=== PATIENT | female | born 1940 | race American Indian/Alaskan Native ===

== ENCOUNTER 2016-08-07 09:19 | Outpatient (CLI) | payer MEDICARE, OTHER ==
[2016-08-07 10:00] LABS: Blood Urea Nitrogen 9 mg/dL (7-17)
[2016-08-07] MEDS ORDERED: NACL ONE (10:45)
--- NOTE | 2016-08-07 12:06 | Cat Scan Report ---
CT abdomen and pelvis with and without contrast: History: Hematuria. Sections are obtained transversely from lower chest to the ischium with coronal and sagittal 2-D reformatted images. There is a right pleural effusion and a focal area of peripheral atelectasis or consolidation in the right middle lobe or anterior segment of the lower lobe. This is not a new finding based on prior study in May 2016. Coronary vascular calcification is identified at the cardiac apex. There is a moderate level of mural calcification throughout the abdominal aorta and iliofemoral vessels. There is a small parenchymal calcification identified in the mid left kidney. There is a small umbilical hernia. Scattered calcification identified in the uterus. Total collapse of the L5-S1 disc. Following contrast administration a peripheral cortical cyst is identified in the upper posterior left kidney and there is a 2 cm filling defect involving the base of the bladder on the right side. Impressions: 1. Suspect urinary bladder mass. 2. Nonobstructing small left parenchymal calcification and cortical cyst. 3. Chronic right pulmonary pathology.
== END 2016-08-07 09:20 | disposition home or self-care (01) ==
LOC: CT 09:19
PROVIDERS: ATTEND Urology
DX: N28.1 Cyst of kidney, acquired (principal); M48.57XA Collapsed vertebra, not elsewhere classified, lumbosacral region, initial encounter for fracture; J90 Pleural effusion, not elsewhere classified; I70.0 Atherosclerosis of aorta; I25.10 Atherosclerotic heart disease of native coronary artery without angina pectoris; K42.9 Umbilical hernia without obstruction or gangrene; N85.8 Other specified noninflammatory disorders of uterus; N28.89 Other specified disorders of kidney and ureter
CPT/HCPCS: 36415; 74178; 82565; 84520; Q9967

== ENCOUNTER 2016-10-18 08:02 | Outpatient (CLI) | payer MEDICARE, OTHER ==
--- NOTE | 2016-10-18 13:29 | PET Report ---
PET/CT:10/18/16 08:02:00 CLINICAL: Ovarian cancer restaging. RADIOPHARMACEUTICAL: 15.48mCi F18-FDG. COMPARISON: 05/10/16 PET/CT TECHNIQUE- Following intravenous injection of F-18 FDG and an approximately 60 minute uptake period, CT and PET images from the mid skull to the upper thighs were acquired with the patient in the fasted state. No contrast was administered. The CT protocol used for this PET CT study is designed for attenuation correction and anatomic localization of PET abnormalities. This cemetery manager CT is not desired to produce and cannot replace, [id number] diagnostic CT scans with specific imaging protocols for different body parts and indications. Plasma glucose at the time of this test: 133g/dl. The standardized uptake values (SUV) are normalized to patient body weight and indicate the highest activity concentration (SUV max) in a given disease site. FINDINGS: Brain--Physiologic FDG uptake in the visualized regions of the brain. Neck--Physiologic FDG uptake . Chest--Physiologic FDG uptake in mediastinal blood pool and myocardium. Lungs--No abnormal uptake. No pulmonary nodule or mass. The right middle lobe has reexpanded. Pleura/pericardium--No abnormal uptake. A small right pleural effusion has decreased in size since the last exam. Thoracic nodes--No abnormal uptake. Bilateral hilar and mediastinal lymph nodes have FDG uptake equal to background. FDG avid cardiophrenic lymph nodes have resolved. Hepatobiliary--No abnormal uptake. Liver background SUV mean, as a reference for comparing FDG studies, is 2.9 compared to 4.7 on the last exam. No liver mass. Spleen--No abnormal uptake. Pancreas--No abnormal uptake. Adrenal Glands--No abnormal uptake. Kidneys/Ureters/Bladder--No abnormal uptake. Abdominopelvic Nodes--No abnormal uptake. FDG avid extraperitoneal epigastric lymph nodes have resolved. Bowel/Peritoneum/Mesentery--sigmoid diverticulosis and stable wall thickening. However, FDG uptake is decreased with an SUV of 4.4. Pelvic organs--No abnormal uptake. Bones/Soft Tissues--No abnormal uptake. Other findings: Status post hysterectomy. IMPRESSION- 1.Resolution of FDG avid lymph nodes of the chest and abdomen. 2. No residual suspicious FDG uptake. 3. Resolution of right middle lobe atelectasis. 4. A persistent but smaller right pleural effusion. 5. Sigmoid diverticulosis and probably benign FDG uptake in the sigmoid colon.
== END 2016-10-18 08:03 | disposition home or self-care (01) ==
LOC: PET 08:02
PROVIDERS: ATTEND Internal Medicine Hematology & Oncology
DX: C56.9 Malignant neoplasm of unspecified ovary (principal); J90 Pleural effusion, not elsewhere classified; K57.30 Diverticulosis of large intestine without perforation or abscess without bleeding; Z90.710 Acquired absence of both cervix and uterus; Z79.899 Other long term (current) drug therapy
CPT/HCPCS: 78815; 82962; A9552

== ENCOUNTER 2017-03-05 09:11 | Outpatient (CLI) | payer MEDICARE, OTHER ==
[2017-03-05 10:06] LABS: Blood Urea Nitrogen 13 mg/dL (7-17)
--- NOTE | 2017-03-05 11:16 | Magnetic Resonance Report ---
MRI of the brain with and without contrast. History: Weakness, tremors. Procedure: Routine brain protocol with and without contrast. Findings: There are ill-defined areas of hyperintense T2 signal in the miguel bilaterally. Otherwise, the posterior fossa is normal. The ventricles are normal in size and contour. There are extensive periventricular T2 and flair hyperintensities bilaterally. There are no masses or extra-axial collections. The pituitary gland is normal. After contrast menstruation, there are no abnormal areas of parenchymal enhancement. The visualized extracranial structures are unremarkable. Impression: No acute findings. No evidence of metastatic disease. Chronic ischemic changes are seen in the brainstem and in the periventricular white matter.
== END 2017-03-05 09:12 | disposition home or self-care (01) ==
LOC: MRI 09:11
PROVIDERS: ATTEND Internal Medicine Hematology & Oncology
DX: C56.2 Malignant neoplasm of left ovary (principal); R25.1 Tremor, unspecified; R53.1 Weakness; J18.9 Pneumonia, unspecified organism; Z87.891 Personal history of nicotine dependence
CPT/HCPCS: 36415; 70553; 82565; 84520; A9577

== ENCOUNTER 2017-03-07 11:02 | Outpatient (CLI) | payer MEDICARE, OTHER ==
--- NOTE | 2017-03-08 13:11 | PET Report ---
PET/CT:03/07/17 11:02:00 CLINICAL: Ovarian cancer restaging. RADIOPHARMACEUTICAL: 14.4mCi F18-FDG. COMPARISON: 10/18/16 PET/CT TECHNIQUE- Following intravenous injection of F-18 FDG and an approximately 60 minute uptake period, CT and PET images from the mid skull to the upper thighs were acquired with the patient in the fasted state. No contrast was administered. The CT protocol used for this PET CT study is designed for attenuation correction and anatomic localization of PET abnormalities. This senior wind turbine technician CT is not desired to produce and cannot replace, khyli-zj-wfu-art diagnostic CT scans with specific imaging protocols for different body parts and indications. Plasma glucose at the time of this test: 107g/dl. The standardized uptake values (SUV) are normalized to patient body weight and indicate the highest activity concentration (SUV max) in a given disease site. FINDINGS: Brain--Physiologic FDG uptake in the visualized regions of the brain. Neck--Physiologic FDG uptake . Chest--Physiologic FDG uptake in mediastinal blood pool and myocardium. Lungs--No abnormal uptake. No pulmonary nodule or mass. Pleura/pericardium--No abnormal uptake. The small right pleural effusion has resolved. Thoracic nodes--No abnormal uptake. Hepatobiliary--No abnormal uptake. Liver background SUV mean, as a reference for comparing FDG studies, is 3.4 compared to 2.9 on the last exam. No liver mass. Spleen--No abnormal uptake. Pancreas--No abnormal uptake. Adrenal Glands--No abnormal uptake. Kidneys/Ureters/Bladder--No abnormal uptake. Abdominopelvic Nodes--No abnormal uptake. Bowel/Peritoneum/Mesentery--Diverticulosis of the sigmoid colon with mural wall thickening and FDG uptake in the lateral wall this should be 5.5 compared to 4.4 on the last exam. Pelvic organs--No abnormal uptake. Status post hysterectomy. Bones/Soft Tissues--No abnormal uptake. No suspicious bone lesion. IMPRESSION- 1. No evidence of metastatic disease. 2. Resolution of right pleural effusion. 3. Sigmoid diverticulosis and persistent FDG uptake in the wall of the sigmoid colon. This is presumably benign.
== END 2017-03-07 11:03 | disposition home or self-care (01) ==
LOC: PET 11:02
PROVIDERS: ATTEND Internal Medicine Hematology & Oncology
DX: C56.9 Malignant neoplasm of unspecified ovary (principal); K57.30 Diverticulosis of large intestine without perforation or abscess without bleeding; J90 Pleural effusion, not elsewhere classified; J18.9 Pneumonia, unspecified organism; J45.909 Unspecified asthma, uncomplicated; Z87.891 Personal history of nicotine dependence
CPT/HCPCS: 78815; 82962; A9552

== ENCOUNTER 2017-09-18 08:59 | Outpatient (CLI) | payer MEDICARE, OTHER ==
[2017-09-18 10:20] LABS: Blood Urea Nitrogen 10 mg/dL (7-17)
--- NOTE | 2017-09-18 15:00 | Nuclear Medicine Report ---
BONE SCAN: History: Malignant neoplasm of ovary. After injection of isotope, gamma camera imaging of the bony system was done. There is a normal uptake of isotope throughout the bony structures without areas of significantly increased or decreased uptake. Normal uptake in the urinary system is seen. IMPRESSION: Normal bone scan.
--- NOTE | 2017-09-18 16:09 | Cat Scan Report ---
FINAL REPORT EXAM: CT ABDOMEN PELVIS W CON HISTORY: MALIGNANT NEOPLASM OF OVARY TECHNIQUE: CT examination of the ABDOMEN after IV contrast CT examination of the PELVIS after IV contrast PRIORS: None. FINDINGS: Normal-appearing liver, gallbladder, adrenals, pancreas, and spleen. Intact normal caliber abdominal aorta with moderate calcified and noncalcified atherosclerotic plaque. Normal caliber IVC. A nonspecific, smoothly marginated, low density, simple appearing left renal lesion is statistically most likely a cyst. Otherwise normal-appearing kidneys and visible ureteral segments. No hydronephrosis. Intact anterior abdominal wall without hernia. No retroperitoneal adenopathy. No evidence of mesenteric mass. Normal-appearing stomach and duodenum. No small bowel distention in the abdomen and pelvis. No pelvic free fluid. Normal-appearing urinary bladder. Uterus and ovaries not visible. These may be surgically resected. No visible pelvic adenopathy. No gross ascites, free air, or colonic distention. Normal-appearing cecum, terminal ileum, and what appears to be a short appendix. Prominent gas and stool in rectum with slight rectal distention. Moderate sigmoid diverticulosis without CT evidence of acute inflammation. Slight diverticulosis descending colon. IMPRESSION: No CT evidence of mass or adenopathy Prominent stool and gas in rectum with slight rectal distention Slight descending and moderate sigmoid diverticulosis without evidence of acute inflammation
--- NOTE | 2017-09-18 16:16 | Cat Scan Report ---
FINAL REPORT EXAM: CT CHEST W CON HISTORY: MALIGNANT NEOPLASM OF OVARY TECHNIQUE: CT examination of the chest after IV contrast PRIORS: AP CT 09/18/2017 FINDINGS: Normal cardiac size without pericardial effusion. Intact normal caliber thoracic aorta with moderate calcified and noncalcified atherosclerotic plaque. Normal-appearing esophagus. No evidence of hilar mass or mediastinal adenopathy. The visible pulmonary arteries are diffusely patent. Degenerative change in the regional skeleton. No acute fracture or focal osseous lesion. No pneumothorax, pleural effusion, or focal pulmonary consolidation. Scattered pulmonary emphysema. Series 2, image 67, nonspecific 4 mm subpleural pulmonary are nodule in the right upper lobe anterolateral. It has a slightly linear configuration and may be scarring. IMPRESSION: 4 mm pulmonary nodule in right upper lobe may be scarring. Given history of ovarian malignancy, recommend followup chest CT in 3 months to ensure stability Scattered pulmonary emphysema
== END 2017-09-18 09:00 | disposition home or self-care (01) ==
LOC: NM 08:59
PROVIDERS: ATTEND Internal Medicine Hematology & Oncology
DX: C56.9 Malignant neoplasm of unspecified ovary (principal); J43.8 Other emphysema; K57.30 Diverticulosis of large intestine without perforation or abscess without bleeding; M47.894 Other spondylosis, thoracic region; I70.0 Atherosclerosis of aorta; R91.1 Solitary pulmonary nodule
CPT/HCPCS: 36415; 71260; 74177; 78306; 82565; 84520; A9503; Q9967

== ENCOUNTER 2018-01-03 10:49 | Outpatient (CLI) | payer MEDICARE ==
[2018-01-03 11:49] LABS: Blood Urea Nitrogen 11 mg/dL (7-17)
--- NOTE | 2018-01-03 14:56 | Cat Scan Report ---
FINAL REPORT EXAM: CT CHEST W CON HISTORY: OVARIAN CANCER COMPARISON: CT of the chest performed on 09/18/2017 TECHNIQUE: Multiple contiguous axial images were obtained from the thoracic inlet to the upper abdomen after administration of IV contrast. Reformatted sagittal and coronal images were available for review. FINDINGS: Medical devices: None. Thyroid: Normal. Lymph nodes: No significant mediastinal, hilar, or axillary lymphadenopathy. Vasculature: Normal caliber of the thoracic aorta with atherosclerotic plaques and calcifications. Normal variant branching pattern of the aortic arch with a common origin between the left common carotid artery and right brachiocephalic artery. Patent pulmonary artery. No filling defect to suggest pulmonary embolism. Heart: Normal heart size. Other mediastinal structures: Normal. Lung parenchyma: Stable 4 millimeter subpleural nodule in the right upper lobe (series 2, image 36). Background of centrilobular emphysematous change, most prominent in the bilateral upper lobes. Airways: Patent. No bronchiectasis. Pleura: No pleural effusion or pneumothorax. Chest wall and spine: No suspicious osseous lesions. No acute fracture or dislocation. Upper Abdomen: Normal. IMPRESSION: Stable 4 millimeter subpleural nodule in the right upper lobe. Background of centrilobular emphysematous change.
--- NOTE | 2018-01-03 15:28 | Cat Scan Report ---
FINAL REPORT EXAM: CT ABDOMEN PELVIS W CON HISTORY: OVARIAN CANCER COMPARISON: CT of the abdomen and pelvis performed on 09/18/2017 TECHNIQUE: Multiple contiguous axial images were obtained from the lung bases to the pubic symphysis after administration of IV and oral contrast. Reformatted sagittal and coronal images were available for review. FINDINGS: Lung bases: Normal. Visualized heart and mediastinum: Normal. Liver: Normal. Spleen: Normal. Pancreas: Normal. Gallbladder and Biliary Tree: No calcified gallstones. No biliary ductal dilatation. Adrenal glands: Normal. Kidneys: Symmetric enhancement to both kidneys. No hydronephrosis. Bladder: Normal. Pelvic organs: The uterus has been removed. The bilateral ovaries are not visualized and may have also been removed. Bowel: No focal wall thickening. No evidence of obstruction. Oral contrast advances to the splenic flexure. Diverticulosis of the sigmoid colon without evidence of diverticulitis. Large amount of stool within the colon. Peritoneum: No significant mesenteric adenopathy. No free air or free fluid. Vasculature: Abdominal aorta is normal in caliber without evidence of aneurysm. Scattered atherosclerotic calcifications. Normal appearance of the portal venous system and the inferior vena cava. Bones and soft tissues: No suspicious osseous lesions.No acute fracture or dislocation. The soft tissues are normal. IMPRESSION: No evidence of mass or adenopathy. Diverticulosis of the sigmoid colon without evidence diverticulitis.
== END 2018-01-03 10:50 | disposition home or self-care (01) ==
LOC: CT 10:49
PROVIDERS: ATTEND Internal Medicine Hematology & Oncology
DX: K57.30 Diverticulosis of large intestine without perforation or abscess without bleeding (principal); C56.9 Malignant neoplasm of unspecified ovary; I70.0 Atherosclerosis of aorta; R91.1 Solitary pulmonary nodule
CPT/HCPCS: 36415; 71260; 74177; 82565; 84520; Q9967

== ENCOUNTER 2018-06-23 05:44 | Outpatient (CLI) | payer MEDICARE ==
[2018-06-23 06:41] LABS: Blood Urea Nitrogen 8 mg/dL (7-17)
--- NOTE | 2018-06-23 09:37 | Cat Scan Report ---
CT chest abdomen and pelvis with contrast: Ovarian cancer. Transverse images are obtained from the thoracic inlet to the pelvis following IV contrast administration. Coronal and sagittal 2-D reformatted images included. Comparison made to prior exam of January 03, 2018. There is dense calcium in the posterior third of the left common carotid artery. The thyroid gland appears unremarkable. The central airways are patent. There is no significant hilar or mediastinal adenopathy noted. Scattered mural aortic calcifications. Bilateral upper lobe emphysematous changes are present with scattered areas of bilateral mild pleural scarring. The described nodule on prior examination in the right upper lobe is not identified currently. No other evidence of pulmonary nodule or lung disease. Images of the abdomen demonstrate normal abdominal and retroperitoneal organs. The partially opacified bowel and mesentery appears generally unremarkable. There is no mesenteric or periaortic adenopathy noted. There is diffuse mural calcification of the abdominal aorta and iliac vessels however the aortic contour is generally unremarkable with patent lumen. Images of the pelvis show no obvious adenopathy. The uterus and ovaries are not visualized and presumably removed. The only structures demonstrate decrease mineralization but no destructive or blastic lesions. Compared with her prior examination there are no new findings. Impression: Stable findings with no evidence of metastatic disease.
== END 2018-06-23 05:45 | disposition home or self-care (01) ==
LOC: CT 05:44
PROVIDERS: ATTEND Internal Medicine Hematology & Oncology
DX: C56.9 Malignant neoplasm of unspecified ovary (principal); K62.5 Hemorrhage of anus and rectum; I70.0 Atherosclerosis of aorta; J43.9 Emphysema, unspecified; Z87.891 Personal history of nicotine dependence
CPT/HCPCS: 36415; 71260; 74177; 82565; 84520; Q9967

== ENCOUNTER 2018-08-01 10:33 | Outpatient (CLI) | payer MEDICARE ==
[2018-08-01 11:17] LABS: Alanine Aminotransferase 10 units/L (7-56); Albumin 3.8 g/dL (3.9-5); BUN/Creatinine Ratio 11; Blood Urea Nitrogen 8 mg/dL (7-17); Calcium 9.7 mg/dL (8.4-10.2); Hemolysis Index 5
== END 2018-08-01 10:34 | disposition home or self-care (01) ==
LOC: LAB 10:33
PROVIDERS: ATTEND Specialist
DX: G31.84 Mild cognitive impairment of uncertain or unknown etiology (principal); J45.909 Unspecified asthma, uncomplicated; Z87.891 Personal history of nicotine dependence
CPT/HCPCS: 36415; 80053; 84443

== ENCOUNTER 2018-12-13 14:32 | Inpatient (IN) | payer MEDICARE ==
--- NOTE | 2018-12-13 16:53 | Emergency Department Report ---
HPI - General Chief Complaint: GI Bleed Time Seen by Provider: 12/13/18 16:29 - HPI HPI: Room 17 The patient is 78-year-old female presented with a chief complaint rectal bleeding. Patient states her symptoms began 12/11/2018 when she awakened at approximately 04:00 thinking she had to urinate but passed blood per rectum. The patient describes blood is "deep red" in color. Patient states she had 4-5 episodes of rectal bleeding as well as feeling near syncopal and diaphoretic. Patient was given water to drink and improved. The following day the patient states she was asymptomatic but today at approximately 04:00 symptoms return. The patient states she's had 3 episodes of rectal bleeding today. Patient denies abdominal pain nausea or vomiting. When asked how she is feeling currently the patient replies "I feel fine." Location: Gastrointestinal system Duration: [See above] Quality: Painless Severity: [See above] Modifying factors: [see above] Context: [see above] Mode of transportation: [not driving] ED Past Medical Hx - Past Medical History Hx Diabetes: Yes Hx of Cancer: Yes (ovarian-remission) Hx Asthma: Yes - Surgical History Additional Surgical History: hysterectomy, broken tail bone - Family History Family history: no significant - Social History Smoking Status: Former Smoker (none 3 years) Substance Use Type: None - Medications Home Medications: Home Medications Medication Instructions Recorded Confirmed Last Taken Type Budesonide/Formoterol Fumarate 2 puff INHALATION BID 04/27/16 05/28/16 05/27/16 History [Symbicort 160-4.5 Mcg Inhaler] Metformin HCl [metFORMIN ER] 500 mg PO QPM 04/27/16 05/28/16 05/26/16 History LORazepam 0.5 mg PO PRN 05/28/16 05/28/16 Unknown History PARoxetine HCl [Paroxetine HCl] 10 mg PO DAILY 05/28/16 05/28/16 05/27/16 History ED Review of Systems ROS: Stated complaint: RECTAL BLEED Other details as noted in HPI Constitutional: diaphoresis Eyes: denies: eye pain ENT: denies: throat pain Respiratory: no symptoms reported Cardiovascular: denies: chest pain Endocrine: no symptoms reported Gastrointestinal: hematochezia. denies: abdominal pain, hematemesis Genitourinary: denies: dysuria Musculoskeletal: denies: back pain Neurological: denies: headache Physical Exam - Physical Exam Vital Signs: Vital Signs 12/13/18 15:13 Temperature 98.7 F Pulse Rate 113 H Respiratory 16 Rate Blood Pressure 114/65 O2 Sat by Pulse 96 Oximetry Physical Exam: GENERAL: The patient is well-developed well-nourished lying on stretcher appearing to be in acute distress. [] HEENT: Normocephalic. Atraumatic. Extraocular motions are intact. Patient has moist mucous membranes. NECK: Supple. Trachea midline CHEST/LUNGS: Clear to auscultation. There is no respiratory distress noted. HEART/CARDIOVASCULAR: Regular. There is no tachycardia. There is no gallop rub or murmur. ABDOMEN: Abdomen is soft, nontender. Patient has normal bowel sounds. There is no abdominal distention. SKIN: There is no rash. There is no edema. There is no diaphoresis. NEURO: The patient is awake, alert, and oriented. The patient is cooperative. The patient has no focal neurologic deficits. The patient has normal speech MUSCULOSKELETAL: There is no evidence of acute injury. RECTAL: Guaiac positive ED Course Vital Signs 12/13/18 15:13 Temperature 98.7 F Pulse Rate 113 H Respiratory 16 Rate Blood Pressure 114/65 O2 Sat by Pulse 96 Oximetry ED Medical Decision Making - Lab Data Result diagrams: 12/13/18 17:26 12/13/18 17:26 Laboratory Tests 12/13/18 12/13/18 12/13/18 17:20 17:26 17:26 WBC 7.4 RBC 3.53 L Hgb 9.7 L Hct 30.2 L MCV 86 MCH 27 L MCHC 32 RDW 14.6 Plt Count 190 Lymph % (Auto) 22.8 Rolette % (Auto) 9.1 H Eos % (Auto) 0.9 Baso % (Auto) 0.3 Lymph # 1.7 Rolette # 0.7 Eos # 0.1 Baso # 0.0 Seg Neutrophils % 66.9 Seg Neutrophils # 4.9 PT 14.3 INR 1.14 H APTT 25.8 Sodium Potassium Chloride Carbon Dioxide Anion Gap BUN Creatinine Estimated GFR BUN/Creatinine Ratio Glucose POC Glucose Calcium Total Bilirubin AST ALT Alkaline Phosphatase Total Protein Albumin Albumin/Globulin Ratio Lipase Blood Type O POSITIVE Antibody Screen Negative 12/13/18 12/13/18 17:26 17:32 WBC RBC Hgb Hct MCV MCH MCHC RDW Plt Count Lymph % (Auto) Rolette % (Auto) Eos % (Auto) Baso % (Auto) Lymph # Rolette # Eos # Baso # Seg Neutrophils % Seg Neutrophils # PT INR APTT Sodium 142 Potassium 5.3 H Chloride 103.9 Carbon Dioxide 29 Anion Gap 14 BUN 17 Creatinine 0.8 Estimated GFR > 60 BUN/Creatinine Ratio 21 Glucose 90 POC Glucose 85 Calcium 9.6 Total Bilirubin 0.30 AST 18 ALT 14 Alkaline Phosphatase 73 Total Protein 6.6 Albumin 3.5 L Albumin/Globulin Ratio 1.1 Lipase 17 Blood Type Antibody Screen - Differential Diagnosis GI bleed, diverticulosis, internal hemorrhoids Critical care attestation.: If time is entered above; I have spent that time in minutes in the direct care of this critically ill patient, excluding procedure time. ED Disposition Clinical Impression: GI bleed Disposition: OP ADMIT IP TO THIS HOSP Is pt being admited?: Yes Does the pt Need Aspirin: No Condition: Fair Referrals: KAMILA DOMINGUEZ MD [Primary Care Provider] - 3-5 Days Forms: Accompanied Note Time of Disposition: 19:20 (hospitalist notified (Dr Chatman))
[2018-12-13 17:50] LABS: Basophils % (Auto) 0.3 % (0.0-1.8); Eosinophils # (Auto) 0.1 K/mm3 (0.0-0.4); Eosinophils % (Auto) 0.9 % (0.0-4.3); Hematocrit 30.2 % (30.3-42.9); Hemoglobin 9.7 gm/dl (10.1-14.3); Lymphocytes # (Auto) 1.7 K/mm3 (1.2-5.4); Lymphocytes % (Auto) 22.8 % (13.4-35.0); Mean Corpuscular HGB Conc 32 % (30-34); Mean Corpuscular Volume 86 fl (79-97); Monocytes # (Auto) 0.7 K/mm3 (0.0-0.8); Monocytes % (Auto) 9.1 % (0.0-7.3); Platelet Count 190 K/mm3 (140-440); Red Blood Count 3.53 M/mm3 (3.65-5.03); Red Cell Distribution Width 14.6 % (13.2-15.2)
[2018-12-13 17:59] LABS: Alanine Aminotransferase 14 units/L (7-56); Albumin 3.5 g/dL (3.9-5); BUN/Creatinine Ratio 21; Blood Urea Nitrogen 17 mg/dL (7-17); Calcium 9.6 mg/dL (8.4-10.2); Hemolysis Index 4
[2018-12-13 18:53] LABS: INR 1.14 (0.87-1.13); Partial Thromboplastin Time 25.8 Sec. (24.2-36.6)
--- NOTE | 2018-12-13 19:29 | History and Physical Report ---
History of Present Illness Chief complaint: I was bleeding, and i have COPD History of present illness: 78 YO Female with Dementia, DM, Asthma, Ovarian Cancer present to ED for evaluation. Pt states that she experienced multiple episodes of rectal bleeding over the past 1 day. Pt reports awakening at approximately 04:00 and feeling as though she had to urinate, but passed blood per rectum. The patient reports that the blood is "deep red" in color and "it a lot of blood". Patient states she had 4-5 episodes of rectal bleeding, and also experienced subsequrnt feeling of dizziness and felt as though she was going to pass out as she eric from a seated to a standing position. Pt also reports shortness of breath. Pt transported to [facility] via private vehicle. Pt seen and evaluated in ED and found to have GI Bleed. Pt admitted to [facility] and initiated on GI bleeding protocol. GI team consulted in ED. Pulmonary team consulted in ED. Past History Past Medical History: cancer, diabetes, other (Asthma) Past Surgical History: hysterectomy Social history: single. denies: smoking, alcohol abuse, prescription drug abuse Family history: hypertension Medications and Allergies Allergies Allergy/AdvReac Type Severity Reaction Status Date / Time No Known Allergies Allergy Verified 04/27/16 11:47 Home Medications Medication Instructions Recorded Confirmed Last Taken Type Budesonide/Formoterol Fumarate 2 puff INHALATION BID 04/27/16 05/28/16 05/27/16 History [Symbicort 160-4.5 Mcg Inhaler] Metformin HCl [metFORMIN ER] 500 mg PO QPM 04/27/16 05/28/16 05/26/16 History LORazepam 0.5 mg PO PRN 05/28/16 05/28/16 Unknown History PARoxetine HCl [Paroxetine HCl] 10 mg PO DAILY 05/28/16 05/28/16 05/27/16 History Review of Systems Constitutional: no weight loss, no weight gain, no fever, no chills Ears, nose, mouth and throat: no ear pain, no ear discharge, no tinnitis, no decreased hearing Cardiovascular: shortness of breath, no chest pain, no orthopnea, no palpitations Respiratory: cough, cough with sputum, shortness of breath, no hemoptysis Gastrointestinal: BRBPR, no nausea, no vomiting, no diarrhea Genitourinary Female: no pelvic pain, no flank pain, no menorrhagia Rectal: no pain, no incontinence, no bleeding Musculoskeletal: no neck stiffness, no neck pain, no shooting arm pain, no arm numbness/tingling Integumentary: no rash, no pruritis, no redness, no sores, no wounds Neurological: no paralysis, no weakness, no parathesias, no numbness, no tingling Psychiatric: no anxiety, no memory loss, no change in sleep habits, no sleep disturbances, no insomnia, no hypersomnia Endocrine: no cold intolerance, no heat intolerance, no polyphagia, no excessive thirst, no polydipsia Hematologic/Lymphatic: no easy bruising Allergic/Immunologic: no urticaria, no allergic rhinitis, no wheezing Exam - Constitutional Vitals: Temp Pulse Resp BP Pulse Ox 98.4 F 84 24 116/59 96 12/13/18 18:14 12/13/18 19:00 12/13/18 19:00 12/13/18 19:00 12/13/18 15:13 General appearance: Present: mild distress - EENT Eyes: Present: PERRL ENT: hearing intact, clear oral mucosa - Neck Neck: Present: supple, normal ROM - Respiratory Respiratory effort: normal Respiratory: bilateral: CTA - Cardiovascular Heart Sounds: Present: S1 & S2. Absent: rub, click - Extremities Extremities: pulses symmetrical, No edema Peripheral Pulses: within normal limits - Abdominal General gastrointestinal: Present: soft, non-tender, non-distended, normal bowel sounds Female genitourinary: Present: normal - Integumentary Integumentary: Present: clear, warm, dry - Musculoskeletal Musculoskeletal: gait normal, strength equal bilaterally - Psychiatric Psychiatric: appropriate mood/affect, intact judgment & insight - Neurologic Neurologic: CNII-XII intact, moves all extremities Results - Labs CBC & Chem 7: 12/13/18 17:26 12/13/18 17:26 Labs: Abnormal lab results 12/13/18 12/13/18 12/13/18 Range/Units 17:26 17:26 17:26 RBC 3.53 L (3.65-5.03) M/mm3 Hgb 9.7 L (10.1-14.3) gm/dl Hct 30.2 L (30.3-42.9) % MCH 27 L (28-32) pg [place] % (Auto) 9.1 H (0.0-7.3) % INR 1.14 H (0.87-1.13) Potassium 5.3 H (3.6-5.0) mmol/L Albumin 3.5 L (3.9-5) g/dL Assessment and Plan - Patient Problems (1) GI bleed Current Visit: Yes Status: Acute Plan to address problem: Admit to IMCU, GI consulted in ED, IV ppi therapy, serial cbc, HGb stable at 9.7 at time of admission[address] CT abdomen/pelvis. (2) COPD (chronic obstructive pulmonary disease) Current Visit: Yes Status: Acute Qualifiers: COPD type: chronic bronchitis Plan to address problem: supplemental oxygen, CT chest, pulmonary consulted, pulse oximetry, chest x ray, NIPPV as clinically indicated. (3) Diabetes Current Visit: Yes Status: Acute Qualifiers: Chronic kidney disease stage: on chronic dialysis Plan to address problem: AD diet, insulin, accu check, hypoglycemia protocol (4) DVT prophylaxis Current Visit: Yes Status: Acute Plan to address problem: SCD to BLE while in bed, hold anticoagulation to GI bleed
[2018-12-13] MEDS ORDERED: SODIUM CHLORIDE FLUSH SYRINGE 10 ML IV PRN (19:30)
[2018-12-13] MEDS ORDERED: PROVENTIL IH PRN (19:30)
[2018-12-13] MEDS ORDERED: ATIVAN PO PRN (20:00)
[2018-12-13] MEDS ORDERED: D50W (25GM) Syringe IV PRN (20:11)
[2018-12-13] MEDS ORDERED: PULMICORT IH ONE (21:23)
[2018-12-13] MEDS ORDERED: BROVANA NEBU IH ONE (21:23)
[2018-12-13] MEDS: BROVANA NEBU IH SCH (21:24)
[2018-12-13] MEDS: PULMICORT IH SCH (21:24)
[2018-12-13] MEDS ORDERED: NON-FORMULARY (Budesonide/Formoterol Fumarate [Symbicort 160-4.5 Mcg Inhaler] 2 PUFF) INHALATION SCH (22:00)
--- NOTE | 2018-12-13 22:44 | Cat Scan Report ---
PROCEDURE: CT CHEST W CON TECHNIQUE: Computerized axial tomography of the chest was performed during the IV injection of iodin ated nonionic contrast. HISTORY: shortness of breath COMPARISONS: 06/23/2018. . FINDINGS: Heart and pericardium: Coronary calcifications noted. Thoracic aorta: Normal. Pulmonary vasculature: No evidence for acute pulmonary embolus. Lymph nodes: No enlarged thoracic lymph nodes. Lungs: Moderate to severe emphysematous changes seen in the upper to midlung zones. No focal consolid ation or effusion visualized. A 3 mm pulmonary nodule seen along the right major fissure. Pleural space: No effusion, thickening, or pneumothorax. Musculoskeletal structures: No significant abnormality. Upper abdominal structures: No significant abnormality. IMPRESSION: No evidence for acute pulmonary embolus. Moderate to severe emphysematous changes seen in the upper to midlung zones. No focal consolidation o r effusion visualized. A 3 mm pulmonary nodule seen along the right major fissure. This document is electronically signed by Campos Lieberman MD., December 13 2018 10:41:48 PM ET
[2018-12-13] MEDS ORDERED: DULCOLAX PO ONE (23:05)
[2018-12-13] MEDS: PROTONIX IV SCH (23:12)
[2018-12-13] MEDS: SODIUM CHLORIDE FLUSH SYRINGE 10 ML IV SCH (23:12)
--- NOTE | 2018-12-13 23:18 | Cat Scan Report ---
PROCEDURE: CT ABDOMEN PELVIS W CON TECHNIQUE: Computerized axial tomography of the abdomen and pelvis was performed after the IV inject ion of iodinated nonionic contrast. HISTORY: bleeding COMPARISONS: Prior CT scan of the abdomen and pelvis 06/23/2019 . FINDINGS: Lower Lung [place]: Emphysematous changes again visualized in the lung bases. Upper Abdomen: The liver, the gallbladder, the adrenal glands, the pancreas and the spleen are unrem arkable. Kidneys, Ureters and Urinary bladder: No abnormalities are seen. Retroperitoneum: Atherosclerotic changes are seen in the abdominal aorta and iliac arteries. No aneu rysm is visualized. Nonspecific subcentimeter lymph nodes are seen in the retroperitoneum. No pathologically enlarged ly mph nodes are identified. Bowel: Moderate diverticulosis seen distal descending colon seen extending into the proximal sigmoid colon. On axial image 104 series 2 axial images of the davis of this portion of the colon appears si gnificantly thickened. This is similar in appearance to prior study performed in 06/23/2018. No absce ss or bowel obstruction is seen. There is no free air identified. Bowel loops otherwise are unremarka ble. The appendix is difficult to visualize. No inflammatory changes are seen in the right lower quad rant to suggest appendicitis. Mild diverticulosis is seen in the hepatic flexure.. Reproductive organs: Uterus is surgically absent. No abnormal adnexal masses are seen. Other: No acute bone abnormalities are identified. IMPRESSION: Moderate diverticulosis seen left side of the colon as described. The davis of this section of the co jaqui are thickened. This is similar in appearance to prior study performed on 06/23/2018. This could r epresent chronic change, scarring and muscular hypertrophy. I cannot exclude recurrent diverticulitis or a mass. Consider nuclear medicine bleeding scan to evaluate for the site of intestinal bleeding a nd to correlate with this finding. Prior hysterectomy.. Emphysematous changes seen in the lung bases. This document is electronically signed by Donta Jose MD., December 13 2018 11:16:46 PM ET
[2018-12-14] MEDS ORDERED: GOLYTELY PO ONE ×2 (00:05→17:00)
[2018-12-14] MEDS: HumaLOG SUB-Q SCH ×4 (00:54→18:44)
[2018-12-14 04:41] LABS: Basophils % (Auto) 0.4 % (0.0-1.8); Eosinophils # (Auto) 0.1 K/mm3 (0.0-0.4); Eosinophils % (Auto) 1.4 % (0.0-4.3); Hematocrit 30.3 % (30.3-42.9); Hemoglobin 9.5 gm/dl (10.1-14.3); Lymphocytes # (Auto) 2.1 K/mm3 (1.2-5.4); Lymphocytes % (Auto) 29.8 % (13.4-35.0); Mean Corpuscular HGB Conc 32 % (30-34); Mean Corpuscular Volume 86 fl (79-97); Monocytes # (Auto) 0.8 K/mm3 (0.0-0.8); Monocytes % (Auto) 11.4 % (0.0-7.3); Platelet Count 183 K/mm3 (140-440); Red Blood Count 3.53 M/mm3 (3.65-5.03); Red Cell Distribution Width 14.3 % (13.2-15.2)
[2018-12-14 05:02] LABS: BUN/Creatinine Ratio 14; Blood Urea Nitrogen 10 mg/dL (7-17); Calcium 9.5 mg/dL (8.4-10.2); Hemolysis Index 3
--- NOTE | 2018-12-14 08:52 | Progress Note ---
Assessment and Plan Assessment and plan: 78 YO Female with Dementia, DM, Asthma, Ovarian Cancer present to ED for evaluation. Pt states that she experienced multiple episodes of rectal bleeding over the past 1 day. Pt reports awakening at approximately 04:00 and feeling as though she had to urinate, but passed blood per rectum. The patient reports that the blood is "deep red" in color and "it a lot of blood". Patient states she had 4-5 episodes of rectal bleeding, and also experienced subsequrnt feeling of dizziness and felt as though she was going to pass out as she eric from a seated to a standing position. Pt also reports shortness of breath. Pt transported to [facility] via private vehicle. Pt seen and evaluated in ED and found to have GI Bleed. Pt admitted to [facility] and initiated on GI bleeding protocol. GI team consulted in ED. Pulmonary team consulted in ED. - Patient Problems GI bleed-Rectal bleed Continue current management. GI consulted in ED, IV ppi therapy, serial cbc, HGb stable at 9.7 at time of admission. CT abdomen/pelvis. COPD (chronic obstructive pulmonary disease) supplemental oxygen, CT chest, pulmonary consulted, pulse oximetry, chest x ray, NIPPV as clinically indicated. Symptomatic Anemia Per report patient noted, near syncope. unsure hgb baseline. Continue to monitor. Diabetes AD diet, insulin, accu check, hypoglycemia protocol Hyperkalemia Resolved. DVT prophylaxis Current Visit: Yes Status: Acute Plan to address problem: SCD to BLE while in bed, hold anticoagulation to GI bleed History Interval history: Patient seen and examined, resting comfortably Hospitalist Physical - Physical exam Narrative exam: VITAL SIGNS: Reviewed. GENERAL: The patient appeared well nourished and normally developed, Vital signs as documented. HEAD: No signs of head trauma. EYES: Pupils are equal. Extraocular motions intact. EARS: Hearing grossly intact. MOUTH: Oropharynx is normal. NECK: No adenopathy, no JVD. CHEST: Chest with clear breath sounds bilaterally. No wheezes, rales, or rhonchi. CARDIAC: Regular rate and rhythm. S1 and S2, without murmurs, gallops, or rubs. VASCULAR: No Edema. Peripheral pulses normal and equal in all extremities. ABDOMEN: Soft, non tender and non distended. No rebound or guarding, and no masses palpated. Bowel Sounds normal. MUSCULOSKELETAL: Good range of motion of all major joints. Extremities without clubbing, cyanosis or edema. NEUROLOGIC EXAM: Alert and oriented x 3 No focal sensory or strength deficits. Speech normal. Follows commands. PSYCHIATRIC: Mood normal. SKIN: No rash or lesions. - Constitutional Vitals: Temp Pulse Resp BP Pulse Ox 98.0 F 66 15 132/58 100 12/14/18 04:00 12/14/18 04:30 12/14/18 04:30 12/14/18 04:30 12/14/18 04:30 General appearance: Present: mild distress Results - Labs CBC & Chem 7: 12/15/18 15:29 12/15/18 05:08 Labs: Laboratory Last Values WBC 6.9 K/mm3 (4.5-11.0) 12/14/18 03:45 RBC 3.53 M/mm3 (3.65-5.03) L 12/14/18 03:45 Hgb 9.5 gm/dl (10.1-14.3) L 12/14/18 03:45 Hct 30.3 % (30.3-42.9) 12/14/18 03:45 MCV 86 fl (79-97) 12/14/18 03:45 MCH 27 pg (28-32) L 12/14/18 03:45 MCHC 32 % (30-34) 12/14/18 03:45 RDW 14.3 % (13.2-15.2) 12/14/18 03:45 Plt Count 183 K/mm3 (140-440) 12/14/18 03:45 Lymph % (Auto) 29.8 % (13.4-35.0) 12/14/18 03:45 [place] % (Auto) 11.4 % (0.0-7.3) H 12/14/18 03:45 Eos % (Auto) 1.4 % (0.0-4.3) 12/14/18 03:45 Baso % (Auto) 0.4 % (0.0-1.8) 12/14/18 03:45 Lymph # 2.1 K/mm3 (1.2-5.4) 12/14/18 03:45 Bertie # 0.8 K/mm3 (0.0-0.8) 12/14/18 03:45 Eos # 0.1 K/mm3 (0.0-0.4) 12/14/18 03:45 Baso # 0.0 K/mm3 (0.0-0.1) 12/14/18 03:45 Seg Neutrophils % 57.0 % (40.0-70.0) 12/14/18 03:45 Seg Neutrophils # 3.9 K/mm3 (1.8-7.7) 12/14/18 03:45 PT 14.3 Sec. (12.2-14.9) 12/13/18 17:26 INR 1.14 (0.87-1.13) H 12/13/18 17:26 APTT 25.8 Sec. (24.2-36.6) 12/13/18 17:26 Sodium 141 mmol/L (137-145) 12/14/18 03:45 Potassium 4.7 mmol/L (3.6-5.0) 12/14/18 03:45 Chloride 103.0 mmol/L (98-107) 12/14/18 03:45 Carbon Dioxide 28 mmol/L (22-30) 12/14/18 03:45 15 mmol/L 12/14/18 03:45 BUN 10 mg/dL (7-17) 12/14/18 03:45 0.7 mg/dL (0.7-1.2) 12/14/18 03:45 Estimated GFR > 60 ml/min 12/14/18 03:45 14 % 12/14/18 03:45 Glucose 102 mg/dL (65-100) H 12/14/18 03:45 POC Glucose 112 (70-105) H 12/14/18 06:36 Calcium 9.5 mg/dL (8.4-10.2) 12/14/18 03:45 0.30 mg/dL (0.1-1.2) 12/13/18 17:26 AST 18 units/L (5-40) 12/13/18 17:26 ALT 14 units/L (7-56) 12/13/18 17:26 73 units/L (35-129) 12/13/18 17:26 6.6 g/dL (6.3-8.2) 12/13/18 17:26 3.5 g/dL (3.9-5) L 12/13/18 17:26 1.1 % 12/13/18 17:26 17 units/L (13-60) 12/13/18 17:26 Blood Type O POSITIVE 12/13/18 17:20 Antibody Screen Negative 12/13/18 17:20 Active Medications - Current Medications Current Medications: Generic Name Dose Route Start Last Admin Trade Name Freq PRN Reason Stop Dose Admin Albuterol 2.5 mg 12/13/18 19:30 Proventil IH Q3HRT PRN Shortness Of Breath Arformoterol Tartrate 15 mcg 12/13/18 20:00 12/13/18 21:24 Brovana Nebu IH 15 mcg Q12HRT DONNA Administration Budesonide 0.5 mg 12/13/18 20:00 12/13/18 21:24 Pulmicort IH 0.5 mg Q12HRT DONNA Administration Dextrose 50 ml 12/13/18 20:11 D50w (25gm) Syringe IV PRN PRN Hypoglycemia Insulin Human Lispro 0 unit 12/14/18 00:00 12/14/18 06:33 Humalog SUB-Q Not Given Q6HR DONNA Protocol Lorazepam 0.5 mg 12/13/18 20:00 Ativan PO DAILY PRN Anxiety Pantoprazole Sodium 40 mg 12/13/18 22:00 12/13/18 23:12 Protonix IV 40 mg BID DONNA Administration Paroxetine HCl 10 mg 12/14/18 10:00 Paxil PO DAILY DONNA Sodium Chloride 10 ml 12/13/18 22:00 12/13/18 23:12 Sodium Chloride Flush Syringe 10 Ml IV 10 ml BID DONNA Administration Sodium Chloride 10 ml 12/13/18 19:30 Sodium Chloride Flush Syringe 10 Ml IV PRN PRN LINE FLUSH
--- NOTE | 2018-12-14 09:47 | Consultation ---
History of Present Illness Reason for consult: COPD History of present illness: 78-year-old -[place] female, admitted to the hospital after she presented with bright red blood rectal bleeding. Patient reports that she had been on her usual state of health until 3 days ago when she passed blood. Reported has bright red blood at least once or twice. She felt weak and dizzy afterwards and the patient was decided to come to the hospital for further review. Admission abdominal CT scan show evidence of diverticulosis and she is currently on schedule for exploratory colonoscopy. She is a COPD treatment with Dr. Arreola, using Symbicort 2 inhalations twice a day and we are asked to review. Currently she denies any respiratory complaints. She does report occasional cough and chest congestion which is close to baseline. No additional respiratory complaints. Past History Past Medical History: cancer, diabetes, other (Asthma) Past Surgical History: hysterectomy Social history: single. denies: smoking, alcohol abuse, prescription drug abuse Family history: hypertension Medications and Allergies Allergies Allergy/AdvReac Type Severity Reaction Status Date / Time No Known Allergies Allergy Verified 04/27/16 11:47 Home Medications Medication Instructions Recorded Confirmed Last Taken Type Budesonide/Formoterol Fumarate 2 puff INHALATION BID 04/27/16 12/14/18 05/27/16 History [Symbicort 160-4.5 Mcg Inhaler] Metformin HCl [metFORMIN ER] 500 mg PO QPM 04/27/16 12/14/18 05/26/16 History LORazepam 0.5 mg PO PRN 05/28/16 12/14/18 Unknown History PARoxetine HCl [Paroxetine HCl] 10 mg PO DAILY 05/28/16 12/14/18 05/27/16 History Active Meds: Active Medications Albuterol (Proventil) 2.5 mg IH Q3HRT PRN PRN Reason: Shortness Of Breath Arformoterol Tartrate (Brovana Nebu) 15 mcg IH Q12HRT DONNA Last Admin: 12/13/18 21:24 Dose: 15 mcg Documented by: Budesonide (Pulmicort) 0.5 mg IH Q12HRT DONNA Last Admin: 12/13/18 21:24 Dose: 0.5 mg Documented by: Dextrose (D50w (25gm) Syringe) 50 ml IV PRN PRN PRN Reason: Hypoglycemia Insulin Human Lispro (Humalog) 0 unit SUB-Q Q6HR DONNA; Protocol Last Admin: 12/14/18 06:33 Dose: Not Given Documented by: Lorazepam (Ativan) 0.5 mg PO DAILY PRN PRN Reason: Anxiety Pantoprazole Sodium (Protonix) 40 mg IV BID [facility] Last Admin: 12/13/18 23:12 Dose: 40 mg Documented by: Paroxetine HCl (Paxil) 10 mg PO DAILY [facility] Sodium Chloride (Sodium Chloride Flush Syringe 10 Ml) 10 ml IV BID [facility] Last Admin: 12/13/18 23:12 Dose: 10 ml Documented by: Sodium Chloride (Sodium Chloride Flush Syringe 10 Ml) 10 ml IV PRN PRN PRN Reason: LINE FLUSH Review of Systems Cardiovascular: lightheadedness, no chest pain, no orthopnea, no palpitations, no rapid/irregular heart beat, no edema, no syncope, no shortness of breath, no dyspnea on exertion Respiratory: cough, no cough with sputum, no excessive sputum, no hemoptysis, no shortness of breath, no dyspnea on exertion, no congestion, no wheezing, no pain on inspiration, no snoring Menstruation: ammenorrhea Rectal: bleeding, no pain, no incontinence Physical Examination Vital signs: Vital Signs Temp Pulse Resp BP Pulse Ox 98.7 F 113 H 16 114/65 96 12/13/18 15:13 12/13/18 15:13 12/13/18 15:13 12/13/18 15:13 12/13/18 15:13 General appearance: no acute distress Eyes: non-icteric ENT: oropharynx moist Neck: supple, no JVD Ascultation: Bilateral: clear, rhonchi (sporadic) Cardiovascular: regular rate and rhythm Gastrointestinal: normoactive bowel sounds, non-distended Integumentary: normal Extremities: no cyanosis Musculoskeletal: no deformities normal mental status, non-focal exam mood appropriate, affect normal Results - Laboratory Findings CBC and BMP: 12/14/18 03:45 12/14/18 03:45 PT/INR, D-dimer PT 14.3 Sec. (12.2-14.9) 12/13/18 17:26 INR 1.14 (0.87-1.13) H 12/13/18 17:26 Abnormal lab findings: Abnormal Labs 12/13/18 12/13/18 12/13/18 17:26 17:26 17:26 RBC 3.53 L Hgb 9.7 L Hct 30.2 L MCH 27 L [place] % (Auto) 9.1 H INR 1.14 H Potassium 5.3 H Glucose POC Glucose Albumin 3.5 L 12/13/18 12/14/18 12/14/18 23:14 03:45 03:45 RBC 3.53 L Hgb 9.5 L Hct MCH 27 L [place] % (Auto) 11.4 H INR Potassium Glucose 102 H POC Glucose 122 H Albumin 12/14/18 06:36 RBC Hgb Hct MCH [place] % (Auto) INR Potassium Glucose POC Glucose 112 H Albumin - Diagnostic Findings Chest x-ray: report reviewed, image reviewed CT scan - chest: report reviewed, image reviewed, other (incidental 3 mm pulmonary nodule) Assessment and Plan COPD. Controlled Lower GI bleeding. Suspected to be secondary to diverticular disease Incidental 3 mm SPN, right major fissure Recommendations GI follow-up. Serial H&H Continue with Symbicort 2 inhalations twice a day Albuterol 2.5 mg nebulizations every 4-6 hours for chest congestion or wheezing Regarding the patient pulmonary lesion, recommend at this point monitoring with noncontrast CT scan, 12 months follow-up for intermediate risk (former smoker) versus no follow-up (if this is a major feature LN?). This per Fleischner Society SPN follow-up recommendations, for solid lesions. Semisolid or GGO type lesions may need up to 36 months of follow-up, depending on patient risk level. Patient encouraged to be followed at the pulmonary office for this. Discussed with patient in detail. All questions answered. Thanks
[2018-12-14] MEDS: PULMICORT IH SCH ×2 (09:56→20:05)
[2018-12-14] MEDS: BROVANA NEBU IH SCH ×2 (09:59→20:05)
[2018-12-14] MEDS: PROTONIX IV SCH ×2 (10:24→21:47)
[2018-12-14] MEDS: SODIUM CHLORIDE FLUSH SYRINGE 10 ML IV SCH ×2 (10:25→21:48)
[2018-12-14] MEDS: PAXIL PO SCH (13:20)
--- NOTE | 2018-12-14 14:02 | Gastroenterology Consultation ---
History of Present Illness - Reason for Consult Consult date: 12/14/18 Requesting physician: LANG ELLER - History of Present Illness 78 YO Female with Dementia, DM, Asthma, Ovarian Cancer present to ED for GI BLEED Pt states that she experienced multiple episodes of rectal bleeding over the past 2-3 days. Pt reports awakening at approximately 04:00 and feeling as though she had to urinate, but passed blood per rectum. The patient reports that the blood was dark red and large amount, associated with dizziness and pre- syncopal sensation She did not drink much of the colon cleanse provided last night, currently no overt GI bleeding Home meds obtained/updated/reviewed Past History Past Medical History: cancer, diabetes, other (Asthma) Past Surgical History: hysterectomy Social history: single. denies: smoking, alcohol abuse, prescription drug abuse Family history: hypertension Medications and Allergies Allergies Allergy/AdvReac Type Severity Reaction Status Date / Time No Known Allergies Allergy Verified 04/27/16 11:47 Home Medications Medication Instructions Recorded Confirmed Last Taken Type Budesonide/Formoterol Fumarate 2 puff INHALATION BID 04/27/16 12/14/18 05/27/16 History [Symbicort 160-4.5 Mcg Inhaler] Metformin HCl [metFORMIN ER] 500 mg PO QPM 04/27/16 12/14/18 05/26/16 History LORazepam 0.5 mg PO PRN 05/28/16 12/14/18 Unknown History PARoxetine HCl [Paroxetine HCl] 10 mg PO DAILY 05/28/16 12/14/18 05/27/16 History Active Meds: Active Medications Albuterol (Proventil) 2.5 mg IH Q3HRT PRN PRN Reason: Shortness Of Breath Arformoterol Tartrate (Brovana Nebu) 15 mcg IH Q12HRT DONNA Last Admin: 12/14/18 09:59 Dose: 15 mcg Documented by: Budesonide (Pulmicort) 0.5 mg IH Q12HRT DONNA Last Admin: 12/14/18 09:56 Dose: 0.5 mg Documented by: Dextrose (D50w (25gm) Syringe) 50 ml IV PRN PRN PRN Reason: Hypoglycemia Insulin Human Lispro (Humalog) 0 unit SUB-Q Q6HR DONNA; Protocol Last Admin: 12/14/18 12:35 Dose: Not Given Documented by: Lorazepam (Ativan) 0.5 mg PO DAILY PRN PRN Reason: Anxiety Pantoprazole Sodium (Protonix) 40 mg IV BID [facility] Last Admin: 12/14/18 10:24 Dose: 40 mg Documented by: Paroxetine HCl (Paxil) 10 mg PO DAILY [facility] Last Admin: 12/14/18 13:20 Dose: Not Given Documented by: Polyethylene Glycol/Electrolytes (Golytely) 4,000 ml PO ONCE ONE Stop: 12/14/18 14:01 Sodium Chloride (Sodium Chloride Flush Syringe 10 Ml) 10 ml IV BID [facility] Last Admin: 12/14/18 10:25 Dose: 10 ml Documented by: Sodium Chloride (Sodium Chloride Flush Syringe 10 Ml) 10 ml IV PRN PRN PRN Reason: LINE FLUSH Review of Systems - Review of Systems All systems: negative (as mentioned above in the HPI) Exam - Constitutional Vital Signs: Temp Pulse Resp BP Pulse Ox 97.7 F 69 20 115/52 100 12/14/18 08:00 12/14/18 11:00 12/14/18 11:00 12/14/18 11:00 12/14/18 11:00 General appearance: no acute distress - EENT Eyes: EOM intact - Neck Neck: supple - Respiratory Respiratory: bilateral: wheezing (mild) - Cardiovascular Rhythm: regular - Gastrointestinal General gastrointestinal: Present: soft, non-tender - Musculoskeletal Musculoskeletal: normal - Neurologic Neurological: alert and oriented x3 - Psychiatric Psychiatric: appropriate mood/affect - Labs CBC & Chem 7: 12/14/18 03:45 12/14/18 03:45 Lab Results: Laboratory Results - last 24 hr 12/13/18 12/13/18 12/13/18 17:20 17:26 17:26 WBC 7.4 RBC 3.53 L Hgb 9.7 L Hct 30.2 L MCV 86 MCH 27 L MCHC 32 RDW 14.6 Plt Count 190 Lymph % (Auto) 22.8 [place] % (Auto) 9.1 H Eos % (Auto) 0.9 Baso % (Auto) 0.3 Lymph # 1.7 [place] # 0.7 Eos # 0.1 Baso # 0.0 Seg Neutrophils % 66.9 Seg Neutrophils # 4.9 PT 14.3 INR 1.14 H APTT 25.8 Sodium Potassium Chloride Carbon Dioxide Anion Gap BUN Creatinine Estimated GFR BUN/Creatinine Ratio Glucose POC Glucose Calcium Total Bilirubin AST ALT Alkaline Phosphatase Total Protein Albumin Albumin/Globulin Ratio Lipase Blood Type O POSITIVE Antibody Screen Negative 12/13/18 12/13/18 12/13/18 17:26 17:32 23:14 WBC RBC Hgb Hct MCV MCH MCHC RDW Plt Count Lymph % (Auto) [place] % (Auto) Eos % (Auto) Baso % (Auto) Lymph # [place] # Eos # Baso # Seg Neutrophils % Seg Neutrophils # PT INR APTT Sodium 142 Potassium 5.3 H Chloride 103.9 Carbon Dioxide 29 Anion Gap 14 BUN 17 Creatinine 0.8 Estimated GFR > 60 BUN/Creatinine Ratio 21 Glucose 90 POC Glucose 85 122 H Calcium 9.6 Total Bilirubin 0.30 AST 18 ALT 14 Alkaline Phosphatase 73 Total Protein 6.6 Albumin 3.5 L Albumin/Globulin Ratio 1.1 Lipase 17 Blood Type Antibody Screen 12/14/18 12/14/18 12/14/18 03:45 03:45 06:36 WBC 6.9 RBC 3.53 L Hgb 9.5 L Hct 30.3 MCV 86 MCH 27 L MCHC 32 RDW 14.3 Plt Count 183 Lymph % (Auto) 29.8 [place] % (Auto) 11.4 H Eos % (Auto) 1.4 Baso % (Auto) 0.4 Lymph # 2.1 [place] # 0.8 Eos # 0.1 Baso # 0.0 Seg Neutrophils % 57.0 Seg Neutrophils # 3.9 PT INR APTT Sodium 141 Potassium 4.7 Chloride 103.0 Carbon Dioxide 28 Anion Gap 15 BUN 10 Creatinine 0.7 Estimated GFR > 60 BUN/Creatinine Ratio 14 Glucose 102 H POC Glucose 112 H Calcium 9.5 Total Bilirubin AST ALT Alkaline Phosphatase Total Protein Albumin Albumin/Globulin Ratio Lipase Blood Type Antibody Screen 12/14/18 11:44 WBC RBC Hgb Hct MCV MCH MCHC RDW Plt Count Lymph % (Auto) [place] % (Auto) Eos % (Auto) Baso % (Auto) Lymph # [place] # Eos # Baso # Seg Neutrophils % Seg Neutrophils # PT INR APTT Sodium Potassium Chloride Carbon Dioxide Anion Gap BUN Creatinine Estimated GFR BUN/Creatinine Ratio Glucose POC Glucose 103 Calcium Total Bilirubin AST ALT Alkaline Phosphatase Total Protein Albumin Albumin/Globulin Ratio Lipase Blood Type Antibody Screen Assessment and Plan didn't drink prep for today's colonoscopy so prep again today for colonoscopy Saturday (clear liquid diet today, NPO past midnight tonight) Highest on the differential diagnosis is diverticular bleed, followed by mass, avm, polyp, etc - Patient Problems (1) GI bleed Current Visit: Yes Status: Acute
[2018-12-15 05:33] LABS: Hematocrit 27.6 % (30.3-42.9); Hemoglobin 8.9 gm/dl (10.1-14.3); Mean Corpuscular HGB Conc 32 % (30-34); Mean Corpuscular Volume 86 fl (79-97); Platelet Count 178 K/mm3 (140-440); Red Blood Count 3.22 M/mm3 (3.65-5.03); Red Cell Distribution Width 14.2 % (13.2-15.2)
[2018-12-15 05:58] LABS: BUN/Creatinine Ratio 7; Blood Urea Nitrogen 4 mg/dL (7-17); Hemolysis Index 5
[2018-12-15] MEDS: HumaLOG SUB-Q SCH ×4 (07:00→17:47)
[2018-12-15] MEDS: PULMICORT IH SCH ×2 (07:41→20:17)
[2018-12-15] MEDS: BROVANA NEBU IH SCH ×2 (07:41→20:17)
[2018-12-15] MEDS: PAXIL PO SCH (09:38)
[2018-12-15] MEDS: PROTONIX IV SCH ×2 (09:38→22:52)
[2018-12-15] MEDS ORDERED: NACL 0.9% 1000 ML 1,000 ML IV SCH (10:00)
--- NOTE | 2018-12-15 10:15 | Progress Note ---
Assessment and Plan 78 y/o female with known COPD, stable, not in acute flare admitted with rectal bleeding. 1. Continue home COPD regimen 2. Follow up scope results. Subjective Date of service: 12/15/18 Interval history: patient being transported to [facility] for Scope. Breathing is stable. No complaints. Objective Vital Signs - 12hr 12/14/18 12/15/18 12/15/18 23:00 00:00 00:08 Temperature 97.6 F Pulse Rate 67 61 60 Pulse Rate [ Bilateral] Pulse Rate [ 61 From Monitor] Respiratory 17 13 14 Rate Respiratory Rate [Bilateral ] Blood Pressure 119/48 140/56 140/56 O2 Sat by Pulse 100 100 100 Oximetry 12/15/18 12/15/18 12/15/18 01:00 02:00 03:00 Temperature Pulse Rate 59 L 68 87 Pulse Rate [ Bilateral] Pulse Rate [ From Monitor] Respiratory 16 18 21 Rate Respiratory Rate [Bilateral ] Blood Pressure 155/56 153/60 138/64 O2 Sat by Pulse 100 100 99 Oximetry 12/15/18 12/15/18 12/15/18 04:00 07:41 07:43 Temperature 97.9 F Pulse Rate 69 Pulse Rate [ 66 Bilateral] Pulse Rate [ 69 From Monitor] Respiratory 17 Rate Respiratory 10 L Rate [Bilateral ] Blood Pressure 152/65 O2 Sat by Pulse 100 100 Oximetry Constitutional: no acute distress Eyes: non-icteric ENT: oropharynx moist Neck: supple, no JVD Ascultation: Bilateral: clear, rhonchi (sporadic) Cardiovascular: regular rate and rhythm Gastrointestinal: normoactive bowel sounds, non-distended Integumentary: normal Extremities: no cyanosis Neurologic: normal mental status, non-focal exam Psychiatric: mood appropriate, affect normal CBC and BMP: 12/15/18 05:08 12/15/18 05:08 ABG, PT/INR, D-dimer: PT/INR, D-dimer PT 14.3 Sec. (12.2-14.9) 12/13/18 17:26 INR 1.14 (0.87-1.13) H 12/13/18 17:26 Abnormal lab findings: Abnormal Labs 12/13/18 12/13/18 12/13/18 17:26 17:26 17:26 RBC 3.53 L Hgb 9.7 L Hct 30.2 L MCH 27 L [place] % (Auto) 9.1 H INR 1.14 H Potassium 5.3 H Carbon Dioxide BUN Creatinine Glucose POC Glucose Albumin 3.5 L 12/13/18 12/14/18 12/14/18 23:14 03:45 03:45 RBC 3.53 L Hgb 9.5 L Hct MCH 27 L [place] % (Auto) 11.4 H INR Potassium Carbon Dioxide BUN Creatinine Glucose 102 H POC Glucose 122 H Albumin 12/14/18 12/14/18 12/15/18 06:36 18:40 05:08 RBC 3.22 L Hgb 8.9 L Hct 27.6 L MCH [place] % (Auto) INR Potassium Carbon Dioxide BUN Creatinine Glucose POC Glucose 112 H 184 H Albumin 12/15/18 05:08 RBC Hgb Hct MCH [place] % (Auto) INR Potassium Carbon Dioxide 31 H BUN 4 L Creatinine 0.6 L Glucose POC Glucose Albumin
[2018-12-15] MEDS ORDERED: VERSED IV ONE ×2 (10:31→12:28)
[2018-12-15] MEDS ORDERED: WATER FOR IRRIG STERILE IR ONE (10:31)
[2018-12-15] MEDS ORDERED: SUBLIMAZE ONE (10:32)
--- NOTE | 2018-12-15 12:07 | Operative Report ---
Operative Report Operative Report: DOS - 12/15/18 SURGEON: Rufus Leiva MD COLONOSCOPY with snare polypectomy and biopsy REPORT PREOPERATIVE AND POSTOPERATIVE DIAGNOSIS: GI bleed DESCRIPTION OF PROCEDURE: The colonoscope was passed to the cecum as identified by the ileocecal valve and appendiceal orifice. Scope was carefully withdrawn. Retroflexion was performed in the rectum. At the end of procedure, the scope was cleaned using normal technique. Vital signs monitored continuously throughout. SEDATION: Under physician supervision, Fentynal and Versed were administered intravenously for moderate sedation. Pulse oximetry, heart rate, and BP were continuously monitored by a nurse. I spent 20 minutes of total sedation time with the patient with anesthesia start time: 11:36 and anesthesia stop time: 11:56. Quality of the prep was good COMPLICATIONS: None. ESTIMATED BLOOD LOSS: minimal FINDINGS: * Despite extensive attempts unable to intubate the terminal ileum due to moderate looping and posterior facing IC Valve * Scattered small diverticula throughout the entire colon, majority in the sigmoid colon though * 6mm sessile polyp in the ascending colon removed with cold snare polypectomy, EBL minimal * Mild inflammation of the mucosa of the sigmoid colon localized to an area near the most significant amount of diverticulosis. Cold forceps biopsies obtained * Small single internal hemorrhoid * No blood in the colon RECOMMENDATIONS: * May consider repeat colonoscopy for surveillance in 5 years * Bleeding most likely diverticular in nature. Given no blood in the colon but Hgb trending down will repeat hgb. If stable or trending up may discharge from GI standpoint but if continuing to trend down may need to consider EGD tomorrow. * Follow up biopsy results
[2018-12-15] MEDS ORDERED: SUBLIMAZE IV ONE (12:28)
[2018-12-15 15:39] LABS: Hematocrit 28.8 % (30.3-42.9); Hemoglobin 9.4 gm/dl (10.1-14.3)
[2018-12-15] MEDS: SODIUM CHLORIDE FLUSH SYRINGE 10 ML IV SCH ×2 (16:07→22:52)
--- NOTE | 2018-12-15 16:09 | Progress Note ---
Assessment and Plan Assessment and plan: 78 YO Female with Dementia, DM, Asthma, Ovarian Cancer present to ED for evaluation. Pt states that she experienced multiple episodes of rectal bleeding over the past 1 day. Pt reports awakening at approximately 04:00 and feeling as though she had to urinate, but passed blood per rectum. The patient reports that the blood is "deep red" in color and "it a lot of blood". Patient states she had 4-5 episodes of rectal bleeding, and also experienced subsequrnt feeling of dizziness and felt as though she was going to pass out as she eric from a seated to a standing position. Pt also reports shortness of breath. Pt transported to [facility] via private vehicle. Pt seen and evaluated in ED and found to have GI Bleed. Pt admitted to [facility] and initiated on GI bleeding protocol. GI team consulted in ED. Pulmonary team consulted in ED. GI bleed-Rectal bleed Hx of Diverticulosis Continue current management. Colonoscopy done today, small single internal hemorrhoid noted, terminial ileum could not be intubated due to turoristy of the loop. HGB has remainded stable but family unable to pick patient up today Discharge in am and follow with [facility] DR Ontiveros 6mm sessile polyp in the ascending colon removed with cold snare polypectomy, EBL minimal Follow with GI for pathology COPD (chronic obstructive pulmonary disease) supplemental oxygen, CT chest, pulmonary consulted, pulse oximetry, chest x ray, NIPPV as clinically indicated. Symptomatic Anemia Per report patient noted, near syncope. unsure hgb baseline. Continue to monitor. Diabetes AD diet, insulin, accu check, hypoglycemia protocol Hyperkalemia Resolved. DVT prophylaxis Current Visit: Yes Status: Acute Plan to address problem: SCD to BLE while in bed, hold anticoagulation to GI bleed History Interval history: Patient seen and examined, resting comfortably, colonoscopy today Hospitalist Physical - Physical exam Narrative exam: VITAL SIGNS: Reviewed. GENERAL: The patient appeared well nourished and normally developed, Vital signs as documented. HEAD: No signs of head trauma. EYES: Pupils are equal. Extraocular motions intact. EARS: Hearing grossly intact. MOUTH: Oropharynx is normal. NECK: No adenopathy, no JVD. CHEST: Chest with clear breath sounds bilaterally. No wheezes, rales, or rhonchi. CARDIAC: Regular rate and rhythm. S1 and S2, without murmurs, gallops, or rubs. VASCULAR: No Edema. Peripheral pulses normal and equal in all extremities. ABDOMEN: Soft, non tender and non distended. No rebound or guarding, and no masses palpated. Bowel Sounds normal. MUSCULOSKELETAL: Good range of motion of all major joints. Extremities without clubbing, cyanosis or edema. NEUROLOGIC EXAM: Alert and oriented x 3 No focal sensory or strength deficits. Speech normal. Follows commands. PSYCHIATRIC: Mood normal. SKIN: No rash or lesions. - Constitutional Vitals: Temp Pulse Resp BP Pulse Ox 98.5 F 80 21 145/58 100 12/15/18 16:00 12/15/18 16:00 12/15/18 16:00 12/15/18 16:00 12/15/18 16:00 General appearance: Present: mild distress Results - Labs CBC & Chem 7: 12/15/18 15:29 12/15/18 05:08 Labs: Laboratory Last Values WBC 6.6 K/mm3 (4.5-11.0) 12/15/18 05:08 RBC 3.22 M/mm3 (3.65-5.03) L 12/15/18 05:08 Hgb 9.4 gm/dl (10.1-14.3) L 12/15/18 15:29 Hct 28.8 % (30.3-42.9) L 12/15/18 15:29 MCV 86 fl (79-97) 12/15/18 05:08 MCH 28 pg (28-32) 12/15/18 05:08 MCHC 32 % (30-34) 12/15/18 05:08 RDW 14.2 % (13.2-15.2) 12/15/18 05:08 Plt Count 178 K/mm3 (140-440) 12/15/18 05:08 Lymph % (Auto) 29.8 % (13.4-35.0) 12/14/18 03:45 [place] % (Auto) 11.4 % (0.0-7.3) H 12/14/18 03:45 Eos % (Auto) 1.4 % (0.0-4.3) 12/14/18 03:45 Baso % (Auto) 0.4 % (0.0-1.8) 12/14/18 03:45 Lymph # 2.1 K/mm3 (1.2-5.4) 12/14/18 03:45 [place] # 0.8 K/mm3 (0.0-0.8) 12/14/18 03:45 Eos # 0.1 K/mm3 (0.0-0.4) 12/14/18 03:45 Baso # 0.0 K/mm3 (0.0-0.1) 12/14/18 03:45 Seg Neutrophils % 57.0 % (40.0-70.0) 12/14/18 03:45 Seg Neutrophils # 3.9 K/mm3 (1.8-7.7) 12/14/18 03:45 PT 14.3 Sec. (12.2-14.9) 12/13/18 17:26 INR 1.14 (0.87-1.13) H 12/13/18 17:26 APTT 25.8 Sec. (24.2-36.6) 12/13/18 17:26 Sodium 144 mmol/L (137-145) 12/15/18 05:08 Potassium 4.0 mmol/L (3.6-5.0) 12/15/18 05:08 Chloride 101.6 mmol/L (98-107) 12/15/18 05:08 Carbon Dioxide 31 mmol/L (22-30) H 12/15/18 05:08 15 mmol/L 12/15/18 05:08 BUN 4 mg/dL (7-17) L 12/15/18 05:08 0.6 mg/dL (0.7-1.2) L 12/15/18 05:08 Estimated GFR > 60 ml/min 12/15/18 05:08 7 % 12/15/18 05:08 Glucose 92 mg/dL (65-100) 12/15/18 05:08 POC Glucose 99 (70-105) 12/15/18 13:28 Calcium 9.0 mg/dL (8.4-10.2) 12/15/18 05:08 0.30 mg/dL (0.1-1.2) 12/13/18 17:26 AST 18 units/L (5-40) 12/13/18 17:26 ALT 14 units/L (7-56) 12/13/18 17:26 73 units/L (35-129) 12/13/18 17:26 6.6 g/dL (6.3-8.2) 12/13/18 17:26 3.5 g/dL (3.9-5) L 12/13/18 17:26 1.1 % 12/13/18 17:26 17 units/L (13-60) 12/13/18 17:26 Blood Type O POSITIVE 12/13/18 17:20 Antibody Screen Negative 12/13/18 17:20 Active Medications - Current Medications Current Medications: Generic Name Dose Route Start Last Admin Trade Name Freq PRN Reason Stop Dose Admin Albuterol 2.5 mg 12/13/18 19:30 Proventil IH Q3HRT PRN Shortness Of Breath Arformoterol Tartrate 15 mcg 12/13/18 20:00 12/15/18 07:41 Brovana Nebu IH 15 mcg Q12HRT DONNA Administration Budesonide 0.5 mg 12/13/18 20:00 12/15/18 07:41 Pulmicort IH 0.5 mg Q12HRT DONNA Administration Dextrose 50 ml 12/13/18 20:11 D50w (25gm) Syringe IV PRN PRN Hypoglycemia Sodium Chloride 1,000 mls @ 50 mls/hr 12/15/18 10:00 Nacl 0.9% 1000 Ml IV DIRECT DONNA Insulin Human Lispro 0 unit 12/14/18 00:00 12/15/18 12:00 Humalog SUB-Q Not Given Q6HR DONNA Protocol Lorazepam 0.5 mg 12/13/18 20:00 Ativan PO DAILY PRN Anxiety Pantoprazole Sodium 40 mg 12/13/18 22:00 12/15/18 09:38 Protonix IV 12/15/18 23:59 40 mg BID DONNA Administration Pantoprazole Sodium 40 mg 12/16/18 10:00 Protonix PO BID DONNA Paroxetine HCl 10 mg 12/14/18 10:00 12/15/18 09:38 Paxil PO 10 mg DAILY DONNA Administration Sodium Chloride 10 ml 12/13/18 22:00 12/15/18 16:07 Sodium Chloride Flush Syringe 10 Ml IV Not Given BID DONNA Sodium Chloride 10 ml 12/13/18 19:30 Sodium Chloride Flush Syringe 10 Ml IV PRN PRN LINE FLUSH
[2018-12-16] MEDS: HumaLOG SUB-Q SCH ×2 (00:15→12:24)
[2018-12-16 05:26] LABS: Hematocrit 29.2 % (30.3-42.9); Hemoglobin 9.5 gm/dl (10.1-14.3); Mean Corpuscular HGB Conc 32 % (30-34); Mean Corpuscular Volume 85 fl (79-97); Platelet Count 201 K/mm3 (140-440); Red Blood Count 3.44 M/mm3 (3.65-5.03); Red Cell Distribution Width 14.3 % (13.2-15.2)
[2018-12-16 07:18] VITALS: BP 159/65
[2018-12-16] MEDS: PULMICORT IH SCH (07:53)
[2018-12-16] MEDS: BROVANA NEBU IH SCH (07:53)
[2018-12-16] MEDS ORDERED: PROTONIX PO SCH (10:00)
--- NOTE | 2018-12-16 10:25 | Discharge Summary ---
Providers - Providers Date of Admission: 12/13/18 19:30 Date of discharge: 12/16/18 Attending physician: CHARMAINE SIM MD 12/13/18 19:32 Consult to Physician [CONS] Routine Comment: Consulting Provider: MAGAN GIRON Physician Instructions: Reason For Exam: GI bleed 12/13/18 20:10 Consult to Physician [CONS] Routine Comment: Consulting Provider: EDWARDO SOLOMON Physician Instructions: Reason For Exam: COPD [facility] Reason for admission: Rectal bleeding Condition: Stable Pertinent studies: Colonoscopy; no active bleeding CT chest IMPRESSION: No evidence for acute pulmonary embolus. Moderate to severe emphysematous changes seen in the upper to midlung zones. No focal consolidation or effusion visualized. A 3 mm pulmonary nodule seen along the right major fissure. CT abdomen and pelvis IMPRESSION: Moderate diverticulosis seen left side of the colon as described. The davis of this section of the colon are thickened. This is similar in appearance to prior study performed on 06/23/2018. This could represent chronic change, scarring and muscular hypertrophy. I cannot exclude recurrent diverticulitis or a mass. Consider nuclear medicine bleeding scan to evaluate for the site of intestinal bleeding and to correlate with this finding. Prior hysterectomy.. Emphysematous changes seen in the lung bases. Hospital course: 78 YO Female with Dementia, DM, Asthma, Ovarian Cancer present to ED for evaluation. Pt states that she experienced multiple episodes of rectal bleeding over the past 1 day. Pt reports awakening at approximately 04:00 and feeling as though she had to urinate, but passed blood per rectum. The patient reports that the blood is "deep red" in color and "it a lot of blood". Patient states she had 4-5 episodes of rectal bleeding, and also experienced subsequrnt feeling of dizziness and felt as though she was going to pass out as she eric from a seated to a standing position. Pt also reports shortness of breath. Pt transported to [facility] via private vehicle. Pt seen and evaluated in ED and found to have GI Bleed. Pt admitted to [facility] and initiated on GI bleeding protocol. GI team consulted in ED. Pulmonary team consulted in ED. Patient was admitted to the floor was given IV fluids, H&H was monitored and stable around 9. GI was consulted and did colonoscopy and didn't show to bleeding. Rectal bleeding could be likely due to diverticulosis. Patient's s hortness of breath is getting better. CT showed 3 mm nodules seen on the right fissure and pulmonary was consulted and recommend outpatient follow-up with CAT scan in a year. Patient scheduled to see pulmonary as outpatient. Patient will see GI within 2 weeks as outpatient. Patient was hemodynamically stable of the time of discharge. Patient's questions and concerns were addressed of the beds joselo. 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 The patient appeared well nourished and normally developed. Vital signs as documented. Head exam is unremarkable. No scleral icterus . Neck is without jugular venous distension, thyromegaly, or carotid bruits. Lungs are clear to auscultation. Cardiac exam reveals regular rate and Rhythm. Abdominal exam reveals normal bowel sounds, no masses, no organomegaly and no aortic enlargement. Extremities are nonedematous and both femoral and pedal pulses are normal. 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 No focal weakness. - Constitutional Vitals: Temp Pulse Resp BP Pulse Ox 98.9 F 86 19 159/65 93 12/16/18 04:00 12/16/18 07:53 12/16/18 07:53 12/16/18 07:00 12/16/18 07:54 Plan Activity: no restrictions Weight Bearing Status: Full Weight Bearing Diet: diabetic Follow up with: OFE LEAVITT MD [Staff Physician] - 10 Days [place] KAMILA MAYS MD [Primary Care Provider] - 3-5 Days BAY HOLLOWAY MD [Staff Physician] - 6 Weeks (Follow up of the pulmon vidya nodule.) Forms: Accompanied Note
[2018-12-16] MEDS: SODIUM CHLORIDE FLUSH SYRINGE 10 ML IV SCH (10:28)
[2018-12-16] MEDS: PAXIL PO SCH (10:29)
--- NOTE | 2018-12-16 11:19 | Progress Note ---
Assessment and Plan 78 y/o female with known COPD, stable, not in acute flare admitted with rectal bleeding. 1. Continue home COPD regimen 2. No objection to discharge Subjective Date of service: 12/16/18 Interval history: No acute events. Pulm status remains stable. Objective Vital Signs - 12hr 12/16/18 12/16/18 12/16/18 00:00 01:00 02:00 Temperature 98.8 F Pulse Rate 71 73 71 Pulse Rate [ Bilateral] Pulse Rate [ 73 From Monitor] Respiratory 17 17 18 Rate Respiratory Rate [Bilateral ] Blood Pressure 170/71 166/72 159/61 O2 Sat by Pulse 100 100 91 Oximetry 12/16/18 12/16/18 12/16/18 03:00 04:00 05:00 Temperature 98.9 F Pulse Rate 69 86 78 Pulse Rate [ Bilateral] Pulse Rate [ 81 From Monitor] Respiratory 16 15 18 Rate Respiratory Rate [Bilateral ] Blood Pressure 152/65 149/54 158/65 O2 Sat by Pulse 87 87 87 Oximetry 12/16/18 12/16/18 12/16/18 06:00 07:00 07:53 Temperature Pulse Rate 80 81 Pulse Rate [ 86 Bilateral] Pulse Rate [ From Monitor] Respiratory 20 18 Rate Respiratory 19 Rate [Bilateral ] Blood Pressure 151/71 159/65 O2 Sat by Pulse 92 92 Oximetry 12/16/18 07:54 Temperature Pulse Rate Pulse Rate [ Bilateral] Pulse Rate [ From Monitor] Respiratory Rate Respiratory Rate [Bilateral ] Blood Pressure O2 Sat by Pulse 93 Oximetry Constitutional: no acute distress Eyes: non-icteric ENT: oropharynx moist Neck: supple, no JVD Ascultation: Bilateral: clear, rhonchi (sporadic) Cardiovascular: regular rate and rhythm Gastrointestinal: normoactive bowel sounds, non-distended Integumentary: normal Extremities: no cyanosis Neurologic: normal mental status, non-focal exam Psychiatric: mood appropriate, affect normal CBC and BMP: 12/16/18 04:42 12/15/18 05:08 ABG, PT/INR, D-dimer: PT/INR, D-dimer PT 14.3 Sec. (12.2-14.9) 12/13/18 17:26 INR 1.14 (0.87-1.13) H 12/13/18 17:26 Abnormal lab findings: Abnormal Labs 12/13/18 12/13/18 12/13/18 17:26 17:26 17:26 RBC 3.53 L Hgb 9.7 L Hct 30.2 L MCH 27 L [place] % (Auto) 9.1 H INR 1.14 H Potassium 5.3 H Carbon Dioxide BUN Creatinine Glucose POC Glucose Albumin 3.5 L 12/13/18 12/14/18 12/14/18 23:14 03:45 03:45 RBC 3.53 L Hgb 9.5 L Hct MCH 27 L [place] % (Auto) 11.4 H INR Potassium Carbon Dioxide BUN Creatinine Glucose 102 H POC Glucose 122 H Albumin 12/14/18 12/14/18 12/15/18 06:36 18:40 05:08 RBC 3.22 L Hgb 8.9 L Hct 27.6 L MCH [place] % (Auto) INR Potassium Carbon Dioxide BUN Creatinine Glucose POC Glucose 112 H 184 H Albumin 12/15/18 12/15/18 12/15/18 05:08 15:29 16:33 RBC Hgb 9.4 L Hct 28.8 L MCH [place] % (Auto) INR Potassium Carbon Dioxide 31 H BUN 4 L Creatinine 0.6 L Glucose POC Glucose 151 H Albumin 12/16/18 12/16/18 12/16/18 00:00 04:42 05:35 RBC 3.44 L Hgb 9.5 L Hct 29.2 L MCH [place] % (Auto) INR Potassium Carbon Dioxide BUN Creatinine Glucose POC Glucose 176 H 142 H Albumin
--- NOTE | 2018-12-16 12:47 | Gastroenterology Progress Note ---
<CANDACE FRANZ - Last Filed: 12/16/18 12:47> Assessment and Plan 1.GI bleed 2.hematochezia -H/H 9.5/29.2-stable -continue to monitor H/H and transfuse as needed -no active signs of bleeding overnight or this am -s/p colonoscopy that showed: FINDINGS: * Despite extensive attempts unable to intubate the terminal ileum due to mod erate looping and posterior facing IC Valve * Scattered small diverticula throughout the entire colon, majority in the sigmoid colon though * 6mm sessile polyp in the ascending colon removed with cold snare polypectomy, EBL minimal * Mild inflammation of the mucosa of the sigmoid colon localized to an area near the most significant amount of diverticulosis. Cold forceps biopsies obtained * Small single internal hemorrhoid * No blood in the colon -etiology-most likely diverticular in nature -clinically, patient is stable w/o GI complaints. Tolerating diet. -okay to be d/c per GI standpoint with f/u in clinic (f/u bx result) in ~2 weeks -will sign off, please call if needed Subjective Date of service: 12/16/18 Principal diagnosis: GI bleed Interval history: Patient resting in bed this am w/o acute distress or GI complaints. Denies abd pain, N/V, or active signs of bleeding overnight or this am. Tolerating diet. Objective - Constitutional Vitals: Temp Pulse Resp BP Pulse Ox 98.9 F 86 19 159/65 93 12/16/18 04:00 12/16/18 07:53 12/16/18 07:53 12/16/18 07:00 12/16/18 07:54 General appearance: no acute distress - Respiratory Respiratory effort: normal - Cardiovascular Rhythm: regular - Gastrointestinal General gastrointestinal: Present: soft, non-tender, non-distended, normal bowel sounds - Neurologic Neurological: alert and oriented x3 - Labs CBC & Chem 7: 12/16/18 04:42 12/15/18 05:08 Labs: Laboratory Results - last 24 hr 12/15/18 12/15/18 12/15/18 10:31 13:28 15:29 WBC RBC Hgb 9.4 L Hct 28.8 L MCV MCH MCHC RDW Plt Count POC Glucose 95 99 12/15/18 12/16/18 12/16/18 16:33 00:00 04:42 WBC 6.7 RBC 3.44 L Hgb 9.5 L Hct 29.2 L MCV 85 MCH 28 MCHC 32 RDW 14.3 Plt Count 201 POC Glucose 151 H 176 H 12/16/18 05:35 WBC RBC Hgb Hct MCV MCH MCHC RDW Plt Count POC Glucose 142 H <OFE LEAVITT - Last Filed: 12/16/18 23:53> Assessment and Plan Patient seen and examined. Advanced practitioner's assessment and plan evaluated and I agree with the plan with the following additions: no more bleeding, patient reports feeling well, discharge home with outpatient followup - Patient Problems (1) GI bleed Status: Acute Objective - Constitutional Vitals: Temp Pulse Resp BP Pulse Ox 99.0 F 86 20 159/65 99 12/16/18 08:00 12/16/18 12:00 12/16/18 12:00 12/16/18 07:00 12/16/18 12:00 - Labs CBC & Chem 7: 12/16/18 04:42 12/15/18 05:08 Labs: Laboratory Results - last 24 hr 12/15/18 12/16/18 12/16/18 10:31 00:00 04:42 WBC 6.7 RBC 3.44 L Hgb 9.5 L Hct 29.2 L MCV 85 MCH 28 MCHC 32 RDW 14.3 Plt Count 201 POC Glucose 95 176 H 12/16/18 05:35 WBC RBC Hgb Hct MCV MCH MCHC RDW Plt Count POC Glucose 142 H
== END 2018-12-16 12:35 | disposition home or self-care (01) | DRG 379 ==
LOC: ED 14:32 → IMCU 19:30
PROVIDERS: ADMIT Internal Medicine; ATTEND Internal Medicine
PROC: 0DBE8ZX Excision of Large Intestine, Via Natural or Artificial Opening Endoscopic, Diagnostic (ICD-10-PCS; principal; 2018-12-15)
PROC: 0DBK8ZZ Excision of Ascending Colon, Via Natural or Artificial Opening Endoscopic (ICD-10-PCS; 2018-12-15)
DX: K57.31 Diverticulosis of large intestine without perforation or abscess with bleeding (principal); J44.9 Chronic obstructive pulmonary disease, unspecified; E11.9 Type 2 diabetes mellitus without complications; D64.9 Anemia, unspecified; K64.8 Other hemorrhoids; R91.1 Solitary pulmonary nodule; E87.5 Hyperkalemia; K63.5 Polyp of colon; D12.2 Benign neoplasm of ascending colon; F03.90 Unspecified dementia, unspecified severity, without behavioral disturbance, psychotic disturbance, mood disturbance, and anxiety; J45.909 Unspecified asthma, uncomplicated; Z82.49 Family history of ischemic heart disease and other diseases of the circulatory system; Z90.710 Acquired absence of both cervix and uterus; Z85.43 Personal history of malignant neoplasm of ovary; Z79.84 Long term (current) use of oral hypoglycemic drugs; Z87.891 Personal history of nicotine dependence
CPT/HCPCS: 36415; 71260; 74177; 80048; 80053; 82271; 82962; 83690; 85014; 85018; 85025; 85027; 85610; 85730; 86850; 86900; 86901; 88305; 94640; 94760; G0378; C9113; J1815; J2250; J3010; J7030; Q9967

== ENCOUNTER 2019-01-14 20:54 | Inpatient (IN) | payer MEDICARE ==
--- NOTE | 2019-01-14 21:06 | Event Note ---
ED Screening Note ED Screening Note: TO ER SOB HX OVARIAN CA RECENT HOSP DC DESAT IN TRIAGE NO HOME OXYGEN TO MAIN ED This initial assessment/diagnostic orders/clinical plan/treatment(s) is/are subject to change based on patients health status, clinical progression and re- assessment by fellow clinical providers in the ED. Further treatment and workup at subsequent clinical providers discretion. Patient/guardian urged not to elope from the ED as their condition may be serious if not clinically assessed and managed. Initial orders include:
--- NOTE | 2019-01-14 21:51 | XRay Report ---
CHEST 1 VIEW 01/14/2019 9:29 PM INDICATION / CLINICAL INFORMATION: SOB. COMPARISON: None available. FINDINGS: SUPPORT DEVICES: None. HEART / MEDIASTINUM: No significant abnormality. LUNGS / PLEURA: COPD with biapical bullous emphysema. No significant pulmonary or pleural abnormality . No pneumothorax. ADDITIONAL FINDINGS: No significant additional findings. IMPRESSION: 1. No acute findings. COPD with biapical emphysema Signer Name: Luca Jung MD Signed: 01/14/2019 9:46 PM Workstation Name: [id number]
[2019-01-14 21:54] LABS: Mean Corpuscular HGB Conc 31 % (30-34); Mean Corpuscular Hemoglobin 27 pg (28-32); Mean Corpuscular Volume 89 fl (79-97); Platelet Count 287 K/mm3 (140-440); Red Blood Count 4.12 M/mm3 (3.65-5.03)
[2019-01-14 21:55] LABS: Hemoglobin 11.1 gm/dl (10.1-14.3)
[2019-01-14 21:56] LABS: Hematocrit 36.6 % (30.3-42.9)
[2019-01-14] MEDS ORDERED: HEPARIN/ 0.45% NACL-25,000 UNIT/500 ML ONE (22:00)
[2019-01-14] MEDS ORDERED: HEPARIN 10,000 UNITS/10 ML ONE (22:00)
[2019-01-14] MEDS ORDERED: PROVENTIL IH ONE (22:06)
[2019-01-14] MEDS ORDERED: LEVAQUIN 500MG/100ML 500 MG/100 ML BAG IV ONE (22:06)
[2019-01-14] MEDS ORDERED: SOLU-Medrol IV ONE (22:06)
[2019-01-14] MEDS ORDERED: ATROVENT IH ONE (22:06)
--- NOTE | 2019-01-14 22:11 | Emergency Department Report ---
ED Shortness of Breath HPI - General Chief Complaint: Dyspnea/Respdistress Stated Complaint: SOB Time Seen by Provider: 01/14/19 21:04 Source: patient Mode of arrival: Ambulatory Limitations: No Limitations - History of Present Illness Initial Comments: Patient is 78 years old female with history of COPD, emphysema, diabetes and dementia. Patient presented to the ER complaining of shortness of breath since yesterday associated with cough, productive with greenish sputum. Patient initial oxygen saturation was 64% in the ER improved to 91% with 2 L of oxygen. Patient denied any fever but stated that she is having chills. Patient denied any nausea or vomiting. Patient also denied any chest pain. MD Complaint: shortness of breath, cough -: days(s) Severity: moderate Known History Of: COPD - Related Data Home Medications Medication Instructions Recorded Confirmed Last Taken Budesonide/Formoterol Fumarate 2 puff INHALATION BID 04/27/16 12/14/18 05/27/16 [Symbicort 160-4.5 Mcg Inhaler] Metformin HCl [metFORMIN ER] 500 mg PO QPM 04/27/16 12/14/18 05/26/16 LORazepam 0.5 mg PO PRN 05/28/16 12/14/18 Unknown PARoxetine HCl [Paroxetine HCl] 10 mg PO DAILY 05/28/16 12/14/18 05/27/16 Allergies Allergy/AdvReac Type Severity Reaction Status Date / Time No Known Allergies Allergy Verified 04/27/16 11:47 ED Review of Systems ROS: Stated complaint: SOB Other details as noted in HPI Comment: All other systems reviewed and negative Constitutional: chills. denies: fever Respiratory: cough, shortness of breath, SOB with exertion, SOB at rest, wh eezing Cardiovascular: denies: chest pain, palpitations, dyspnea on exertion Gastrointestinal: denies: abdominal pain, nausea, vomiting, diarrhea, con stipation, hematemesis, melena, hematochezia Genitourinary: denies: urgency, dysuria Musculoskeletal: denies: back pain Neurological: denies: headache, weakness, numbness, paresthesias, confusion, abnormal gait ED Past Medical Hx - Past Medical History Previous Medical History?: Yes Hx Diabetes: Yes Hx Asthma: Yes - Surgical History Past Surgical History?: Yes Additional Surgical History: hysterectomy, broken tail bone - Social History Smoking Status: Never Smoker Substance Use Type: None - Medications Home Medications: Home Medications Medication Instructions Recorded Confirmed Last Taken Type Budesonide/Formoterol Fumarate 2 puff INHALATION BID 04/27/16 12/14/18 05/27/16 History [Symbicort 160-4.5 Mcg Inhaler] Metformin HCl [metFORMIN ER] 500 mg PO QPM 04/27/16 12/14/18 05/26/16 History LORazepam 0.5 mg PO PRN 05/28/16 12/14/18 Unknown History PARoxetine HCl [Paroxetine HCl] 10 mg PO DAILY 05/28/16 12/14/18 05/27/16 History ED Physical Exam - General Limitations: No Limitations General appearance: alert, in no apparent distress - Head Head exam: Present: atraumatic, normocephalic, normal inspection - Eye Eye exam: Present: normal appearance, PERRL - ENT ENT exam: Present: normal exam, normal orophraynx, mucous membranes moist - Neck Neck exam: Present: normal inspection, full ROM. Absent: tenderness, meningismus, lymphadenopathy, thyromegaly - Respiratory Respiratory exam: Present: respiratory distress, wheezes, rales, decreased breath sounds, prolonged expiratory. Absent: rhonchi, stridor, chest wall tenderness, accessory muscle use - Cardiovascular Cardiovascular Exam: Present: regular rate, normal rhythm, normal heart sounds - GI/Abdominal GI/Abdominal exam: Present: soft, normal bowel sounds. Absent: distended, tenderness, guarding, rebound, rigid, organomegaly, mass, bruit, pulsatile mass, hernia - Extremities Exam Extremities exam: Present: normal inspection, full ROM, normal capillary refill. Absent: calf tenderness - Back Exam Back exam: Present: normal inspection, full ROM. Absent: CVA tenderness (R), CVA tenderness (L), muscle spasm, paraspinal tenderness, vertebral tenderness, rash noted - Neurological Exam Neurological exam: Present: alert, oriented X3, CN II-XII intact, normal gait, reflexes normal - Psychiatric Psychiatric exam: Present: normal mood - Skin Skin exam: Present: warm, intact, normal color ED Course Vital Signs 01/14/19 01/14/19 01/14/19 21:14 21:38 23:09 Temperature 97.8 F Pulse Rate 63 91 H 82 Pulse Rate [ Bilateral] Respiratory 20 17 26 H Rate Respiratory Rate [Bilateral ] Blood Pressure 94/55 Blood Pressure 133/66 154/63 [Left] O2 Sat by Pulse 62 L 91 93 Oximetry 01/15/19 01/15/19 01/15/19 00:35 00:44 00:59 Temperature Pulse Rate 65 Pulse Rate [ 96 H 99 H Bilateral] Respiratory 17 Rate Respiratory 22 22 Rate [Bilateral ] Blood Pressure Blood Pressure 172/100 [Left] O2 Sat by Pulse 97 Oximetry 01/15/19 01/15/19 01/15/19 01:00 01:02 01:03 Temperature Pulse Rate 119 H 117 H 116 H Pulse Rate [ Bilateral] Respiratory 25 H 25 H Rate Respiratory Rate [Bilateral ] Blood Pressure Blood Pressure 141/120 [Left] O2 Sat by Pulse 95 92 82 L Oximetry 01/15/19 01/15/19 01/15/19 01:04 01:05 01:06 Temperature Pulse Rate 116 H 117 H 117 H Pulse Rate [ Bilateral] Respiratory 25 H 24 24 Rate Respiratory Rate [Bilateral ] Blood Pressure Blood Pressure [Left] O2 Sat by Pulse 72 L 69 L 77 L Oximetry 01/15/19 01/15/19 01/15/19 01:20 01:31 01:35 Temperature Pulse Rate 107 H 98 H 110 H Pulse Rate [ Bilateral] Respiratory 24 28 H 24 Rate Respiratory Rate [Bilateral ] Blood Pressure Blood Pressure 154/87 156/88 [Left] O2 Sat by Pulse 95 97 94 Oximetry 01/15/19 01/15/19 01/15/19 01:50 03:20 03:30 Temperature Pulse Rate 115 H 82 79 Pulse Rate [ Bilateral] Respiratory 26 H 18 Rate Respiratory Rate [Bilateral ] Blood Pressure 155/81 Blood Pressure 163/94 [Left] O2 Sat by Pulse 94 100 95 Oximetry 01/15/19 01/15/19 01/15/19 03:40 03:50 04:00 Temperature 97.6 F Pulse Rate 73 68 77 Pulse Rate [ Bilateral] Respiratory 17 15 22 Rate Respiratory Rate [Bilateral ] Blood Pressure 155/81 155/81 144/81 Blood Pressure [Left] O2 Sat by Pulse 93 93 92 Oximetry 01/15/19 01/15/19 01/15/19 04:08 04:11 04:21 Temperature Pulse Rate 84 77 71 Pulse Rate [ Bilateral] Respiratory 26 H 20 16 Rate Respiratory Rate [Bilateral ] Blood Pressure 146/87 155/81 155/81 Blood Pressure [Left] O2 Sat by Pulse 100 93 95 Oximetry 01/15/19 01/15/19 01/15/19 04:31 04:41 04:51 Temperature Pulse Rate 93 H 65 74 Pulse Rate [ Bilateral] Respiratory 24 20 22 Rate Respiratory Rate [Bilateral ] Blood Pressure 155/81 155/81 155/81 Blood Pressure [Left] O2 Sat by Pulse 98 100 99 Oximetry 01/15/19 01/15/19 01/15/19 05:00 05:11 05:21 Temperature Pulse Rate 67 65 65 Pulse Rate [ Bilateral] Respiratory 24 16 14 Rate Respiratory Rate [Bilateral ] Blood Pressure 166/85 166/85 166/85 Blood Pressure [Left] O2 Sat by Pulse 99 98 99 Oximetry 01/15/19 01/15/19 01/15/19 05:31 05:41 05:51 Temperature Pulse Rate 63 63 64 Pulse Rate [ Bilateral] Respiratory 23 24 24 Rate Respiratory Rate [Bilateral ] Blood Pressure 166/85 166/85 166/85 Blood Pressure [Left] O2 Sat by Pulse 100 100 99 Oximetry 01/15/19 01/15/19 01/15/19 06:00 06:11 06:21 Temperature Pulse Rate 61 86 68 Pulse Rate [ Bilateral] Respiratory 12 16 24 Rate Respiratory Rate [Bilateral ] Blood Pressure 139/72 139/72 139/72 Blood Pressure [Left] O2 Sat by Pulse 100 99 Oximetry 01/15/19 01/15/19 01/15/19 06:26 06:31 06:41 Temperature Pulse Rate 84 68 69 Pulse Rate [ Bilateral] Respiratory 26 H 23 15 Rate Respiratory Rate [Bilateral ] Blood Pressure 137/85 139/72 139/72 Blood Pressure [Left] O2 Sat by Pulse 100 97 95 Oximetry 01/15/19 01/15/19 01/15/19 06:51 07:00 07:11 Temperature Pulse Rate 67 68 67 Pulse Rate [ Bilateral] Respiratory 16 15 24 Rate Respiratory Rate [Bilateral ] Blood Pressure 139/72 157/83 157/83 Blood Pressure [Left] O2 Sat by Pulse 92 95 92 Oximetry ED Medical Decision Making - Lab Data Result diagrams: 01/15/19 01:28 01/15/19 01:28 - EKG Data -: EKG Interpreted by Sc EKG shows normal: sinus rhythm Rate: normal - EKG Data Interpretation: no acute changes - Radiology Data Radiology results: report reviewed - Medical Decision Making Patient is 78 years old female with history of COPD, emphysema, diabetes and dementia. Patient presented to the ER complaining of shortness of breath since yesterday associated with cough, productive with greenish sputum. Patient initial oxygen saturation was 64% in the ER improved to 91% with 2 L of oxygen. Patient denied any fever but stated that she is having chills. Patient denied any nausea or vomiting. Patient also denied any chest pain. Patient labs reviewed and showed a limited troponin,BNP of 8000. Patient received albuterol, Atrovent and Solu-Medrol. Patient stated the symptoms better. Patient found to have a potassium of 6.2 and she received fluids, dextrose and insulin. I discussed the patient with Dr. Cristina Moss, she agreed to admit the patient to medical service. while waiting for admission, patient started to have more shortness of breath. EKG showed Anterior STEMI. STEMI protocol immediately initiated. Dr Pedro informed and stated that he is on his way. Please note this is atypical STEMI presentation with initial symtoms as SOB and negative initial EKG. Critical Care Time: Yes Critical care time in (mins) excluding proc time.: 30 Critical care attestation.: If time is entered above; I have spent that time in minutes in the direct care of this critically ill patient, excluding procedure time. ED Disposition Clinical Impression: COPD exacerbation, Hyperkalemia, CHF exacerbation, STEMI (ST elevation myocardial infarction) Disposition: OP ADMIT IP TO THIS HOSP Is pt being admited?: Yes Condition: Stable
[2019-01-14 22:17] LABS: Alanine Aminotransferase 61 units/L (7-56); Albumin 4.5 g/dL (3.9-5); BUN/Creatinine Ratio 23; Blood Urea Nitrogen 23 mg/dL (7-17); Calcium 9.9 mg/dL (8.4-10.2); Hemolysis Index 5
[2019-01-14] MEDS ORDERED: NACL 0.9% 500 ML 500 ML IV ONE (22:21)
[2019-01-14] MEDS ORDERED: D50W (25GM) Syringe IV ONE (22:22)
[2019-01-14] MEDS ORDERED: HumuLIN R IV ONE (22:22)
[2019-01-14] MEDS ORDERED: BABY ASPIRIN PO ONE (22:23)
[2019-01-14 22:32] LABS: Chol/HDL Ratio 1.76 %
[2019-01-14 23:27] LABS: Alanine Aminotransferase 62 units/L (7-56); Albumin 4.5 g/dL (3.9-5); BUN/Creatinine Ratio 23; Bilirubin,Direct 0.2 mg/dL (0-0.2); Blood Urea Nitrogen 23 mg/dL (7-17); Calcium 9.9 mg/dL (8.4-10.2); Hemolysis Index 2
[2019-01-14 23:41] LABS: Basophils % (Manual) 0 % (0.0-1.8); Eosinophils % (Manual) 0 % (0.0-4.3); Total Cells Counted 100
[2019-01-14 23:42] LABS: Large Platelets 1+; Platelet Estimate Consistent w Auto
[2019-01-15] MEDS ORDERED: PROVENTIL IH ONE (00:33)
[2019-01-15] MEDS ORDERED: ATROVENT IH ONE (00:33)
[2019-01-15] MEDS ORDERED: LASIX IV ONE ×2 (00:39→12:00)
[2019-01-15] MEDS ORDERED: PERCOCET 5/325 PO PRN (00:51)
[2019-01-15] MEDS ORDERED: PROVENTIL IH PRN (00:51)
[2019-01-15] MEDS ORDERED: TYLENOL PO PRN (00:51)
[2019-01-15] MEDS ORDERED: D50W (25GM) Syringe IV PRN (00:51)
[2019-01-15] MEDS ORDERED: ZOFRAN IV PRN (00:51)
[2019-01-15] MEDS ORDERED: NACL 0.9% 1000 ML 1,000 ML IV SCH ×2 (01:00→03:00)
[2019-01-15] MEDS ORDERED: HEPARIN 10,000 UNITS/10 ML IV ONE (01:22)
[2019-01-15 01:35] LABS: Hematocrit 34.6 % (30.3-42.9); Hemoglobin 10.6 gm/dl (10.1-14.3)
[2019-01-15] MEDS ORDERED: NITROSTAT SL PRN (01:35)
[2019-01-15 01:50] LABS: INR 1.16 (0.87-1.13)
[2019-01-15 01:51] LABS: Partial Thromboplastin Time 26.1 Sec. (24.2-36.6)
[2019-01-15] MEDS ORDERED: HEPARIN/ 0.45% NACL-25,000 UNIT/500 ML 25,000 UNIT/500 ML BAG IV SCH ×2 (02:00→06:00)
[2019-01-15] MEDS ORDERED: VERSED ONE (02:00)
[2019-01-15] MEDS ORDERED: SUBLIMAZE ONE (02:01)
[2019-01-15] MEDS ORDERED: CALAN ONE (02:01)
[2019-01-15] MEDS ORDERED: HEPARIN 10,000 UNITS/10 ML ONE (02:01)
[2019-01-15] MEDS ORDERED: XYLOCAINE 2% INFILTRATI ONE (02:01)
[2019-01-15] MEDS ORDERED: HEPARIN/NS 5000 UNIT/500ML(CATH LAB) 1,000 ML IR ONE (02:01)
[2019-01-15] MEDS ORDERED: NITROGLYCERIN SYRINGE 3 ML ONE (02:02)
[2019-01-15] MEDS ORDERED: NACL 0.9% 1000 ML 1,000 ML ONE (02:03)
--- NOTE | 2019-01-15 03:07 | Consultation ---
History of Present Illness Consult date: 01/15/19 Consult reason: shortness of breath, other (acute anteroseptal infarct) History of present illness: The patient is a 78-year-old woman with COPD, no prior cardiac history. She presented to the emergency room with shortness of breath and wheezing, evidence of COPD exacerbation. Initial emergency room EKG showed some nonspecific a nteroseptal T-wave abnormalities. 2 hours into her ER course, she developed worsening shortness of breath, and a repeat ECG showed anteroseptal ST elevation in leads V1 through V3. Emergency cardiac catheterization protocol was activated. At cardiac catheterization, we found no significant coronary stenosis. Specifically, the LAD and its diagonal system were tortuous, but free of significant disease. Left ventricle systolic function with lower limits of normal, ejection fraction 50-55%. The patient is recommended for medical management to include oral antiplatelets and long-acting oral nitrates for possible transient coronary spasm. Past History Past Medical History: COPD Medications and Allergies Allergies Allergy/AdvReac Type Severity Reaction Status Date / Time No Known Allergies Allergy Verified 04/27/16 11:47 Home Medications Medication Instructions Recorded Confirmed Last Taken Type Budesonide/Formoterol Fumarate 2 puff INHALATION BID 04/27/16 12/14/18 05/27/16 History [Symbicort 160-4.5 Mcg Inhaler] Metformin HCl [metFORMIN ER] 500 mg PO QPM 04/27/16 12/14/18 05/26/16 History LORazepam 0.5 mg PO PRN 05/28/16 12/14/18 Unknown History PARoxetine HCl [Paroxetine HCl] 10 mg PO DAILY 05/28/16 12/14/18 05/27/16 History Active Meds: Active Medications Acetaminophen (Tylenol) 650 mg PO Q4H PRN PRN Reason: Pain MILD(1-3)/Fever >100.5/GOVEA Albuterol (Proventil) 2.5 mg IH Q3HRT PRN PRN Reason: Shortness Of Breath Albuterol/Ipratropium (Duoneb *Not For Prn Use*) 1 ampul IH Q6HRT [facility] Atorvastatin Calcium (Lipitor) 40 mg PO QHS [facility] Budesonide (Pulmicort) 0.5 mg IH Q12HRT [facility] Carvedilol (Coreg) 3.125 mg PO BID [facility] Clopidogrel Bisulfate (Plavix) 75 mg PO QDAY [facility] Dextrose (D50w (25gm) Syringe) 50 ml IV PRN PRN PRN Reason: Hypoglycemia Docusate Sodium (Colace) 100 mg PO BID [facility] Guaifenesin (Mucinex Er) 600 mg PO BID [facility] Heparin Sodium/Sodium Chloride (Heparin/ 0.45% Nacl-25,000 Unit/500 Ml) 25,000 unit in 500 mls @ 15 mls/hr IV TITRATE [facility]; Protocol Sodium Chloride (Nacl 0.9% 1000 Ml) 1,000 mls @ 100 mls/hr IV DIRECT [facility] Stop: 01/15/19 12:59 Insulin Human Lispro (Humalog) 0 unit SUB-Q ACHS [facility]; Protocol Isosorbide Mononitrate (Imdur) 30 mg PO QDAY [facility] Methylprednisolone Sodium Succinate (Solu-Medrol) 80 mg IV Q8HR [facility] Nitroglycerin (Nitrostat) 0.4 mg SL .Q5MIN PRN PRN Reason: Chest Pain Ondansetron HCl (Zofran) 4 mg IV Q8H PRN PRN Reason: Nausea And Vomiting Oxycodone/Acetaminophen (Percocet 5/325) 1 tab PO Q6H PRN PRN Reason: Pain, Moderate (4-6) Sodium Chloride (Sodium Chloride Flush Syringe 10 Ml) 10 ml IV BID [facility] Sodium Chloride (Sodium Chloride Flush Syringe 10 Ml) 10 ml IV PRN PRN PRN Reason: LINE FLUSH Review of Systems Cardiovascular: shortness of breath, no chest pain, no orthopnea, no palpita tions, no rapid/irregular heart beat, no edema, no syncope, no lightheadedness Physical Examination Vital Signs Temp Pulse Resp BP Pulse Ox 97.8 F 63 20 94/55 62 L 01/14/19 21:14 01/14/19 21:14 01/14/19 21:14 01/14/19 21:14 01/14/19 21:14 General appearance: mild distress, other (on BiPAP) HEENT: Positive: PERRL Neck: Positive: neck supple Cardiac: Positive: Reg Rate and Rhythm Lungs: Positive: Decreased Breath Sounds Neuro: Positive: Grossly Intact Abdomen: Positive: Soft Female genitourinary: deferred Skin: Positive: Clear Extremities: Absent: edema Results 01/15/19 01:28 01/15/19 01:28 Cardiac Enzymes 01/14/19 01/14/19 Range/Units 21:09 22:24 AST 51 H 52 H (5-40) units/L Coagulation 01/15/19 Range/Units 01:28 PT 14.5 (12.2-14.9) Sec. INR 1.16 H (0.87-1.13) APTT 26.1 (24.2-36.6) Sec. Lipids 01/14/19 Range/Units 21:09 Triglycerides 53 (2-149) mg/dL Cholesterol 129 (50-199) mg/dL HDL Cholesterol 73 H (40-59) mg/dL Cholesterol/HDL Ratio 1.76 % CBC 01/14/19 01/15/19 Range/Units 21:09 01:28 WBC 12.5 H (4.5-11.0) K/mm3 RBC 4.12 (3.65-5.03) M/mm3 Hgb 11.1 10.6 (10.1-14.3) gm/dl Hct 36.6 34.6 (30.3-42.9) % Plt Count 287 246 (140-440) K/mm3 Comprehensive Metabolic Panel 01/14/19 01/14/19 01/15/19 Range/Units 21:09 22:24 01:28 Sodium 144 146 H (137-145) mmol/L Potassium 6.2 H* 6.1 H* 4.3 D (3.6-5.0) mmol/L Chloride 101.2 101.5 (98-107) mmol/L Carbon Dioxide 29 27 (22-30) mmol/L BUN 23 H 23 H (7-17) mg/dL Creatinine 1.0 1.0 (0.7-1.2) mg/dL Glucose 227 H 221 H (65-100) mg/dL Calcium 9.9 9.9 (8.4-10.2) mg/dL Direct Bilirubin 0.2 (0-0.2) mg/dL Indirect Bilirubin 0.4 mg/dL AST 51 H 52 H (5-40) units/L ALT 61 H 62 H (7-56) units/L Alkaline Phosphatase 112 113 (35-129) units/L Total Protein 7.9 8.1 (6.3-8.2) g/dL Albumin 4.5 4.5 (3.9-5) g/dL EKG interpretations - Telemetry EKG Rhythm: Sinus Rhythm (with anteroseptal ST elevation) Assessment and Plan - Patient Problems (1) STEMI (ST elevation myocardial infarction) Current Visit: Yes Status: Acute Plan to address problem: EKG shows anteroseptal ST elevation, cardiac catheterization negative for significant coronary lesions. Patient will be recommended for medical management including long-acting oral nitrates. We will defer to internal medicine on pulmonary for further management of the patient's COPD exacerbation.
--- NOTE | 2019-01-15 03:27 | History and Physical Report ---
<CUCA GRAHAM - Last Filed: 01/15/19 03:27> History of Present Illness Date of examination: 01/15/19 Date of admission: 01/15/19 00:52 Chief complaint: Difficulty in breathing History of present illness: 71-year-old -Romanian female with history of diabetes, asthma/ COPD, diverticulitis, ovarian cancer s/p hysterectomy who presents to [facility] ED with complaints of shortness of breath. At the time of my examination patient con dition was critical and she could not provide history. History is taken from medical records. She stated that the past day she has been having increased shortness of breath accompanied by cough with green/yellow sputum production. Upon entering examination patient was noted to be lucid, diaphoretic nonverbal. She displayed signs of difficulty breathing with use of accessory muscles. She desaturated to low 60s on nasal cannula, she was then placed on nonrebreather mask with no improvement in saturations. Ultimately she was placed on BiPAP with improvement in saturations to mid to high 90s. Stat EKG was performed which showed anterior STEMI. Past History Past Medical History: cancer (ovarian s/p hysterectomy), COPD, diabetes, other (anxiety, diverticulitis) Past Surgical History: hysterectomy, Other (broken tail bone) Social history: lives with family, other (former smoker) Family history: no significant family history Medications and Allergies Allergies Allergy/AdvReac Type Severity Reaction Status Date / Time No Known Allergies Allergy Verified 04/27/16 11:47 Home Medications Medication Instructions Recorded Confirmed Last Taken Type Budesonide/Formoterol Fumarate 2 puff INHALATION BID 04/27/16 12/14/18 05/27/16 History [Symbicort 160-4.5 Mcg Inhaler] Metformin HCl [metFORMIN ER] 500 mg PO QPM 04/27/16 12/14/18 05/26/16 History LORazepam 0.5 mg PO PRN 05/28/16 12/14/18 Unknown History PARoxetine HCl [Paroxetine HCl] 10 mg PO DAILY 05/28/16 12/14/18 05/27/16 History Active Meds: Active Medications Acetaminophen (Tylenol) 650 mg PO Q4H PRN PRN Reason: Pain MILD(1-3)/Fever >100.5/GOVEA Albuterol (Proventil) 2.5 mg IH Q3HRT PRN PRN Reason: Shortness Of Breath Albuterol/Ipratropium (Duoneb *Not For Prn Use*) 1 ampul IH Q6HRT [facility] Atorvastatin Calcium (Lipitor) 40 mg PO QHS [facility] Budesonide (Pulmicort) 0.5 mg IH Q12HRT [facility] Carvedilol (Coreg) 3.125 mg PO BID [facility] Clopidogrel Bisulfate (Plavix) 75 mg PO QDAY [facility] Dextrose (D50w (25gm) Syringe) 50 ml IV PRN PRN PRN Reason: Hypoglycemia Docusate Sodium (Colace) 100 mg PO BID [facility] Guaifenesin (Mucinex Er) 600 mg PO BID [facility] Heparin Sodium/Sodium Chloride (Heparin/ 0.45% Nacl-25,000 Unit/500 Ml) 25,000 unit in 500 mls @ 15 mls/hr IV TITRATE [facility]; Protocol Sodium Chloride (Nacl 0.9% 1000 Ml) 1,000 mls @ 100 mls/hr IV DIRECT DONNA Stop: 01/15/19 12:59 Levofloxacin/Dextrose (Levaquin 500mg/100ml) 500 mg in 100 mls @ 100 mls/hr IV Q24HR [facility]; Protocol Insulin Human Lispro (Humalog) 0 unit SUB-Q ACHS DONNA; Protocol Isosorbide Mononitrate (Imdur) 30 mg PO QDAY [facility] Methylprednisolone Sodium Succinate (Solu-Medrol) 80 mg IV Q8HR [facility] Nitroglycerin (Nitrostat) 0.4 mg SL .Q5MIN PRN PRN Reason: Chest Pain Ondansetron HCl (Zofran) 4 mg IV Q8H PRN PRN Reason: Nausea And Vomiting Oxycodone/Acetaminophen (Percocet 5/325) 1 tab PO Q6H PRN PRN Reason: Pain, Moderate (4-6) Sodium Chloride (Sodium Chloride Flush Syringe 10 Ml) 10 ml IV BID [facility] Sodium Chloride (Sodium Chloride Flush Syringe 10 Ml) 10 ml IV PRN PRN PRN Reason: LINE FLUSH Review of Systems ROS unobtainable: due to mental status Exam - Physical Exam Narrative exam: Physical exam General appearance: Present: Acute distress, awake, thin, tall -Romanian female - EENT Eyes: Present: PERRL, EOM intact ENT: hearing intact, normal dentition - Neck Neck: Present: supple, normal ROM - Respiratory Respiratory effort: Listed with the use of accessory muscles on supplemental oxy gen Respiratory: Scattered wheezing throughout with diminished bases, poor air movement - Cardiovascular Heart rate: 105 (bpm) Rhythm: Sinus tachycardia Heart Sounds: Present: S1 & S2. Absent: rub, click - Extremities Extremities: no ischemia, pulses intact, - Peripheral Assessment Peripheral Pulses: within normal limits - Abdominal General gastrointestinal: soft, non-tender, normal bowel sounds - Integumentary Integumentary: Present: warm, dry - Musculoskeletal Musculoskeletal: generalized weakness - Psychiatric Psychiatric: Withdrawn for a short period, cooperative - Constitutional Vitals: Temp Pulse Resp BP Pulse Ox 97.8 F 98 H 28 H 172/100 97 01/14/19 21:14 01/15/19 01:31 01/15/19 01:31 01/15/19 00:44 01/15/19 01:31 Results - Labs CBC & Chem 7: 01/15/19 01:28 01/15/19 01:28 Labs: Laboratory Last Values WBC 12.5 K/mm3 (4.5-11.0) H 01/14/19 21:09 RBC 4.12 M/mm3 (3.65-5.03) 01/14/19 21:09 Hgb 10.6 gm/dl (10.1-14.3) 01/15/19 01:28 Hct 34.6 % (30.3-42.9) 01/15/19 01:28 MCV 89 fl (79-97) 01/14/19 21:09 MCH 27 pg (28-32) L 01/14/19 21:09 MCHC 31 % (30-34) 01/14/19 21:09 RDW 16.0 % (13.2-15.2) H 01/14/19 21:09 Plt Count 246 K/mm3 (140-440) 01/15/19 01:28 Add Manual Diff Complete 01/14/19 21:09 Total Counted 100 01/14/19 21:09 Seg Neuts % (Manual) 86.0 % (40.0-70.0) H 01/14/19 21:09 0 % 01/14/19 21:09 4.0 % (13.4-35.0) L 01/14/19 21:09 Reactive Lymphs % (Man) 0 % 01/14/19 21:09 10.0 % (0.0-7.3) H 01/14/19 21:09 0 % (0.0-4.3) 01/14/19 21:09 0 % (0.0-1.8) 01/14/19 21:09 0 % 01/14/19 21:09 0 % 01/14/19 21:09 0 % 01/14/19 21:09 0 % 01/14/19 21:09 Nucleated RBC % Not Reportable 01/14/19 21:09 Seg Neutrophils # Man 10.8 K/mm3 (1.8-7.7) H 01/14/19 21:09 Band Neutrophils # 0.0 K/mm3 01/14/19 21:09 0.5 K/mm3 (1.2-5.4) L 01/14/19 21:09 Abs React Lymphs (Man) 0.0 K/mm3 01/14/19 21:09 1.3 K/mm3 (0.0-0.8) H 01/14/19 21:09 0.0 K/mm3 (0.0-0.4) 01/14/19 21:09 0.0 K/mm3 (0.0-0.1) 01/14/19 21:09 0.0 K/mm3 01/14/19 21:09 0.0 K/mm3 01/14/19 21:09 0.0 K/mm3 01/14/19 21:09 Blast Cells # 0.0 K/mm3 01/14/19 21:09 WBC Morphology Not Reportable 01/14/19 21:09 Hypersegmented Neuts Not Reportable 01/14/19 21:09 Hyposegmented Neuts Not Reportable 01/14/19 21:09 Hypogranular Neuts Not Reportable 01/14/19 21:09 Not Reportable 01/14/19 21:09 Not Reportable 01/14/19 21:09 Not Reportable 01/14/19 21:09 Not Reportable 01/14/19 21:09 Not Reportable 01/14/19 21:09 Not Reportable 01/14/19 21:09 Consistent w auto 01/14/19 21:09 Not Reportable 01/14/19 21:09 Plt Clumps, EDTA Not Reportable 01/14/19 21:09 1+ 01/14/19 21:09 Not Reportable 01/14/19 21:09 Not Reportable 01/14/19 21:09 Plt Morphology Comment Not Reportable 01/14/19 21:09 RBC Morphology Not Reportable 01/14/19 21:09 Dimorphic RBCs Not Reportable 01/14/19 21:09 Not Reportable 01/14/19 21:09 Not Reportable 01/14/19 21:09 Not Reportable 01/14/19 21:09 Not Reportable 01/14/19 21:09 Not Reportable 01/14/19 21:09 Not Reportable 01/14/19 21:09 Not Reportable 01/14/19 21:09 Not Reportable 01/14/19 21:09 Not Reportable 01/14/19 21:09 Not Reportable 01/14/19 21:09 Not Reportable 01/14/19 21:09 Not Reportable 01/14/19 21:09 Not Reportable 01/14/19 21:09 Not Reportable 01/14/19 21:09 Not Reportable 01/14/19 21:09 Not Reportable 01/14/19 21:09 Not Reportable 01/14/19 21:09 Not Reportable 01/14/19 21:09 Not Reportable 01/14/19 21:09 Acanthocytes (Spur) Not Reportable 01/14/19 21:09 Rouleaux Not Reportable 01/14/19 21:09 Not Reportable 01/14/19 21:09 Not Reportable 01/14/19 21:09 Not Reportable 01/14/19 21:09 Not Reportable 01/14/19 21:09 Hem Pathologist Commnt No 01/14/19 21:09 PT 14.5 Sec. (12.2-14.9) 01/15/19 01:28 INR 1.16 (0.87-1.13) H 01/15/19 01:28 APTT 26.1 Sec. (24.2-36.6) 01/15/19 01:28 POC ABG pH 7.296 (7.35-7.45) L 01/15/19 00:35 POC ABG pCO2 64.0 (35-45) H 01/15/19 00:35 POC ABG pO2 65 (80-105) L 01/15/19 00:35 POC ABG HCO3 31.2 (22-26 mml/L) 01/15/19 00:35 POC ABG Total CO2 33 (23-27mmol/L) 01/15/19 00:35 POC ABG O2 Sat 89 01/15/19 00:35 POC ABG Base Excess 5 ((-2) - (+3)mmol/L) 01/15/19 00:35 32 % 01/15/19 00:35 Sodium 146 mmol/L (137-145) H 01/14/19 22:24 Potassium 4.3 mmol/L (3.6-5.0) D 01/15/19 01:28 Chloride 101.5 mmol/L (98-107) 01/14/19 22:24 Carbon Dioxide 27 mmol/L (22-30) 01/14/19 22:24 24 mmol/L 01/14/19 22:24 BUN 23 mg/dL (7-17) H 01/14/19 22:24 1.0 mg/dL (0.7-1.2) 01/14/19 22:24 Estimated GFR > 60 ml/min 01/14/19 22:24 23 % 01/14/19 22:24 Glucose 221 mg/dL (65-100) H 01/14/19 22:24 POC Glucose 173 (70-105) H 01/15/19 01:20 Calcium 9.9 mg/dL (8.4-10.2) 01/14/19 22:24 0.60 mg/dL (0.1-1.2) 01/14/19 22:24 0.2 mg/dL (0-0.2) 01/14/19 22:24 0.4 mg/dL 01/14/19 22:24 AST 52 units/L (5-40) H 01/14/19 22:24 ALT 62 units/L (7-56) H 01/14/19 22:24 113 units/L (35-129) 01/14/19 22:24 0.255 ng/mL (0.00-0.029) H* 01/14/19 22:52 NT-Pro-B Natriuret Pep 8638 pg/mL (0-900) H 01/14/19 22:24 8.1 g/dL (6.3-8.2) 01/14/19 22:24 4.5 g/dL (3.9-5) 01/14/19 22:24 1.3 % 01/14/19 22:24 Triglycerides 53 mg/dL (2-149) 01/14/19 21:09 Cholesterol 129 mg/dL (50-199) 01/14/19 21:09 56 mg/dL (50-130) 01/14/19 21:09 73 mg/dL (40-59) H 01/14/19 21:09 1.76 % 01/14/19 21:09 - Imaging and Cardiology Chest x-ray: report reviewed (No acute findings. COPD with biapical emphysema ), image reviewed Assessment and Plan Assessment and plan: 71-year-old -Romanian female with history of diabetes, asthma/ COPD, diverticulitis, ovarian cancer s/p hysterectomy who presents to [facility] ED with complaints of difficulty in breathing. Leukocytosis 12.5, hyperkalemia 6.1. Troponin elevated 2 with upward trend. Initial EKG showed sinus rhythm with prolonged QT interval, repeat EKG showed anterior STEMI. Code STEMI protocol was initiated and cardiology (Dr. Pedro) was notified. Pt was taken to lab tech. STEMI- anterior Acute exacerbation COPD Acute hypoxic respiratory failure Leukocytosis Hyperkalemia Dehydration Elevated troponin ?? Acute CHF Plan: Continue supportive care Patient will go to lab tech Started on heparin drip Cardiac management per cardiology recommendations appreciated Continue supplemental oxygen and wean as tolerated Start Levaquin 500 mg every 24 hours Solu-Medrol 80 mg every 8 hours Scheduled duo nebs, and Pulmicort; albuterol when necessary Mucinex 600 mg twice a day Received hyperkalemic cocktail in ED; recheck calcium now at 4.3 Continue to monitor electrolytes Monitor CBC Blood cultures pending Urinalysis pending DVT PPX on heparin gtt Advance Directives: No VTE prophylaxis?: Chemical Reason for no VTE Prophylaxis: Surgical contraindication <VALERIO EASTMAN - Last Filed: 01/15/19 05:37> History of Present Illness Date of admission: 01/15/19 00:52 Medications and Allergies Active Meds: Active Medications Acetaminophen (Tylenol) 650 mg PO Q4H PRN PRN Reason: Pain MILD(1-3)/Fever >100.5/GOVEA Albuterol (Proventil) 2.5 mg IH Q3HRT PRN PRN Reason: Shortness Of Breath Albuterol/Ipratropium (Duoneb *Not For Prn Use*) 1 ampul IH Q6HRT [facility] Last Admin: 01/15/19 05:21 Dose: Not Given Documented by: Atorvastatin Calcium (Lipitor) 40 mg PO QHS [facility] Budesonide (Pulmicort) 0.5 mg IH Q12HRT [facility] Carvedilol (Coreg) 3.125 mg PO BID [facility] Clopidogrel Bisulfate (Plavix) 75 mg PO QDAY [facility] Dextrose (D50w (25gm) Syringe) 50 ml IV PRN PRN PRN Reason: Hypoglycemia Docusate Sodium (Colace) 100 mg PO BID [facility] Guaifenesin (Mucinex Er) 600 mg PO BID [facility] Heparin Sodium/Sodium Chloride (Heparin/ 0.45% Nacl-25,000 Unit/500 Ml) 25,000 unit in 500 mls @ 15 mls/hr IV TITRATE [facility]; Protocol Sodium Chloride (Nacl 0.9% 1000 Ml) 1,000 mls @ 100 mls/hr IV DIRECT DONNA Stop: 01/15/19 12:59 Levofloxacin/Dextrose (Levaquin 500mg/100ml) 500 mg in 100 mls @ 100 mls/hr IV Q24HR [facility]; Protocol Insulin Human Lispro (Humalog) 0 unit SUB-Q ACHS [facility]; Protocol Isosorbide Mononitrate (Imdur) 30 mg PO QDAY [facility] Methylprednisolone Sodium Succinate (Solu-Medrol) 80 mg IV Q8HR [facility] Nitroglycerin (Nitrostat) 0.4 mg SL .Q5MIN PRN PRN Reason: Chest Pain Ondansetron HCl (Zofran) 4 mg IV Q8H PRN PRN Reason: Nausea And Vomiting Oxycodone/Acetaminophen (Percocet 5/325) 1 tab PO Q6H PRN PRN Reason: Pain, Moderate (4-6) Pneumococcal Polyvalent Vaccine (Pneumovax 23) 0.5 ml IM .ONCE ONE Stop: 01/15/19 12:01 Sodium Chloride (Sodium Chloride Flush Syringe 10 Ml) 10 ml IV BID [facility] Sodium Chloride (Sodium Chloride Flush Syringe 10 Ml) 10 ml IV PRN PRN PRN Reason: LINE FLUSH Exam - Constitutional Vitals: Temp Pulse Resp BP Pulse Ox 97.6 F 84 26 H 146/87 100 01/15/19 04:00 01/15/19 04:08 01/15/19 04:08 01/15/19 04:08 01/15/19 04:08 Results - Labs CBC & Chem 7: 01/15/19 01:28 01/15/19 01:28 Labs: Laboratory Last Values WBC 12.5 K/mm3 (4.5-11.0) H 01/14/19 21:09 RBC 4.12 M/mm3 (3.65-5.03) 01/14/19 21:09 Hgb 10.6 gm/dl (10.1-14.3) 01/15/19 01:28 Hct 34.6 % (30.3-42.9) 01/15/19 01:28 MCV 89 fl (79-97) 01/14/19 21:09 MCH 27 pg (28-32) L 01/14/19 21:09 MCHC 31 % (30-34) 01/14/19 21:09 RDW 16.0 % (13.2-15.2) H 01/14/19 21:09 Plt Count 246 K/mm3 (140-440) 01/15/19 01:28 Add Manual Diff Complete 01/14/19 21:09 Total Counted 100 01/14/19 21:09 Seg Neuts % (Manual) 86.0 % (40.0-70.0) H 01/14/19 21:09 0 % 01/14/19 21:09 4.0 % (13.4-35.0) L 01/14/19 21:09 Reactive Lymphs % (Man) 0 % 01/14/19 21:09 10.0 % (0.0-7.3) H 01/14/19 21:09 0 % (0.0-4.3) 01/14/19 21:09 0 % (0.0-1.8) 01/14/19 21:09 0 % 01/14/19 21:09 0 % 01/14/19 21:09 0 % 01/14/19 21:09 0 % 01/14/19 21:09 Nucleated RBC % Not Reportable 01/14/19 21:09 Seg Neutrophils # Man 10.8 K/mm3 (1.8-7.7) H 01/14/19 21:09 Band Neutrophils # 0.0 K/mm3 01/14/19 21:09 0.5 K/mm3 (1.2-5.4) L 01/14/19 21:09 Abs React Lymphs (Man) 0.0 K/mm3 01/14/19 21:09 1.3 K/mm3 (0.0-0.8) H 01/14/19 21:09 0.0 K/mm3 (0.0-0.4) 01/14/19 21:09 0.0 K/mm3 (0.0-0.1) 01/14/19 21:09 0.0 K/mm3 01/14/19 21:09 0.0 K/mm3 01/14/19 21:09 0.0 K/mm3 01/14/19 21:09 Blast Cells # 0.0 K/mm3 01/14/19 21:09 WBC Morphology Not Reportable 01/14/19 21:09 Hypersegmented Neuts Not Reportable 01/14/19 21:09 Hyposegmented Neuts Not Reportable 01/14/19 21:09 Hypogranular Neuts Not Reportable 01/14/19 21:09 Not Reportable 01/14/19 21:09 Not Reportable 01/14/19 21:09 Not Reportable 01/14/19 21:09 Not Reportable 01/14/19 21:09 Not Reportable 01/14/19 21:09 Not Reportable 01/14/19 21:09 Consistent w auto 01/14/19 21:09 Not Reportable 01/14/19 21:09 Plt Clumps, EDTA Not Reportable 01/14/19 21:09 1+ 01/14/19 21:09 Not Reportable 01/14/19 21:09 Not Reportable 01/14/19 21:09 Plt Morphology Comment Not Reportable 01/14/19 21:09 RBC Morphology Not Reportable 01/14/19 21:09 Dimorphic RBCs Not Reportable 01/14/19 21:09 Not Reportable 01/14/19 21:09 Not Reportable 01/14/19 21:09 Not Reportable 01/14/19 21:09 Not Reportable 01/14/19 21:09 Not Reportable 01/14/19 21:09 Not Reportable 01/14/19 21:09 Not Reportable 01/14/19 21:09 Not Reportable 01/14/19 21:09 Not Reportable 01/14/19 21:09 Not Reportable 01/14/19 21:09 Not Reportable 01/14/19 21:09 Not Reportable 01/14/19 21:09 Not Reportable 01/14/19 21:09 Not Reportable 01/14/19 21:09 Not Reportable 01/14/19 21:09 Not Reportable 01/14/19 21:09 Not Reportable 01/14/19 21:09 Not Reportable 01/14/19 21:09 Not Reportable 01/14/19 21:09 Acanthocytes (Spur) Not Reportable 01/14/19 21:09 Rouleaux Not Reportable 01/14/19 21:09 Not Reportable 01/14/19 21:09 Not Reportable 01/14/19 21:09 Not Reportable 01/14/19 21:09 Not Reportable 01/14/19 21:09 Hem Pathologist Commnt No 01/14/19 21:09 PT 14.5 Sec. (12.2-14.9) 01/15/19 01:28 INR 1.16 (0.87-1.13) H 01/15/19 01:28 APTT 26.1 Sec. (24.2-36.6) 01/15/19 01:28 POC ABG pH 7.282 (7.35-7.45) L 01/15/19 04:27 POC ABG pCO2 66.5 (35-45) H 01/15/19 04:27 POC ABG pO2 65 (80-105) L 01/15/19 04:27 POC ABG HCO3 31.4 (22-26 mml/L) 01/15/19 04:27 POC ABG Total CO2 33 (23-27mmol/L) 01/15/19 04:27 POC ABG O2 Sat 89 01/15/19 04:27 POC ABG Base Excess 5 ((-2) - (+3)mmol/L) 01/15/19 04:27 35 % 01/15/19 04:27 Sodium 146 mmol/L (137-145) H 01/14/19 22:24 Potassium 4.3 mmol/L (3.6-5.0) D 01/15/19 01:28 Chloride 101.5 mmol/L (98-107) 01/14/19 22:24 Carbon Dioxide 27 mmol/L (22-30) 01/14/19 22:24 24 mmol/L 01/14/19 22:24 BUN 23 mg/dL (7-17) H 01/14/19 22:24 1.0 mg/dL (0.7-1.2) 01/14/19 22:24 Estimated GFR > 60 ml/min 01/14/19 22:24 23 % 01/14/19 22:24 Glucose 221 mg/dL (65-100) H 01/14/19 22:24 POC Glucose 159 (70-105) H 01/15/19 03:45 4.8 % (4-6) 01/15/19 02:04 Calcium 9.9 mg/dL (8.4-10.2) 01/14/19 22:24 0.60 mg/dL (0.1-1.2) 01/14/19 22:24 0.2 mg/dL (0-0.2) 01/14/19 22:24 0.4 mg/dL 01/14/19 22:24 AST 52 units/L (5-40) H 01/14/19 22:24 ALT 62 units/L (7-56) H 01/14/19 22:24 113 units/L (35-129) 01/14/19 22:24 0.255 ng/mL (0.00-0.029) H* 01/14/19 22:52 NT-Pro-B Natriuret Pep 8638 pg/mL (0-900) H 01/14/19 22:24 8.1 g/dL (6.3-8.2) 01/14/19 22:24 4.5 g/dL (3.9-5) 01/14/19 22:24 1.3 % 01/14/19 22:24 Triglycerides 53 mg/dL (2-149) 01/14/19 21:09 Cholesterol 129 mg/dL (50-199) 01/14/19 21:09 56 mg/dL (50-130) 01/14/19 21:09 73 mg/dL (40-59) H 01/14/19 21:09 1.76 % 01/14/19 21:09 Assessment and Plan Assessment and plan: 78-year-old man with a history of COPD comes in with complaints of cough, shortness of breath. While waiting for admission, she became diaphoretic with decreased responsiveness, EKG was performed which showed STEMI. She was taken emergently to the Rehab Services Aide, no acute obstruction. The patient denies any PND, orthopnea or lower extremity edema, BNP is elevated, chest x-ray negative for CHF. Physical exam is significant for decreased air entry bilateral. Acute COPD exacerbation . Case discussed with cardiology, Dr. Pedro, trying to start heparin drip at 6 am. Monitor hemoglobin, last admission in November, she had a bleed.Check echo. Patient seen and examined, d/w COMMISSIONS MANAGER
[2019-01-15] MEDS: DUONEB *Not for PRN Use IH SCH ×4 (05:21→20:09)
[2019-01-15] MEDS: PULMICORT IH SCH ×2 (07:29→20:09)
[2019-01-15] MEDS: HumaLOG SUB-Q SCH ×4 (08:30→22:24)
--- NOTE | 2019-01-15 08:30 | Cardiac Catherization Report ---
CARDIAC CATHETERIZATION REPORT REASON FOR PROCEDURE: Shortness of breath, abnormal EKG, anteroseptal ST elevation myocardial infarction. The patient was admitted to the Emergency Room with shortness of breath. Initial ECG showed nonspecific T-wave abnormalities in the anteroseptal leads. About 2 hours into her hospital course, she developed increasing shortness of breath and the followup ECG showed new, anteroseptal ST elevation, which prompted a recommendation for emergency cardiac catheterization. PROCEDURES: 1. Left heart catheterization. 2. Selective left and right coronary angiography. 3. Left ventricle angiography. 4. Sedation time, start 0224, end 0236. The patient was prepped and draped in a sterile manner under emergency protocol. On presentation to the labor training manager, she was on a BiPAP machine for respiration, but awake and oriented x 3. The right femoral artery was entered using Seldinger technique followed by placement of a 6-Thai sheath. Selective left and right coronary angiography was performed using #4 right and left Kyra catheters. A pigtail catheter was used for left ventricle angiography. The catheters were then removed, sheath removed, and hemostasis achieved using an Angio-Seal device. The patient was returned to the postprocedure unit in stable condition. There were no complications. FINDINGS: HEMODYNAMICS: Left ventricle end diastolic pressure was 20-25, following coronary angiography. Ascending aortic pressure was 100/60. There was no significant pressure gradient on pullback across the aortic valve. CORONARY ANGIOGRAPHY: There was mild diffuse coronary calcification. The left main coronary artery contained mild distal narrowing before its bifurcation into the LAD and circumflex. The LAD was very tortuous in its proximal segment, but free of significant disease. This vessel had a large diagonal branch, contained only mild luminal irregularities. The circumflex artery was also a large, tortuous vessel, that contained mild luminal irregularities, no significant coronary lesions. The right coronary artery was dominant. This vessel contained mild luminal irregularities with mild atherosclerosis in its mid segment. There were also no significant obstructive lesions in this system. Left ventricular systolic function was at lower limits of normal, ejection fraction 50-55%. CONCLUSION: 1. Mild luminal irregularities as above. No significant coronary lesions. Specifically, no coronary lesions in the LAD or diagonal system that will correlate with acute injury on the ECG. 2. Left ventricular systolic function at lower limits of normal, ejection fraction 50-55%. RECOMMENDATION: Medical therapy and risk factor modification. Long-term management with oral antiplatelet therapy, statins, and long-acting nitrates for possible coronary spasm. JOB# [id number] STAS/RODRICK
[2019-01-15] MEDS: PLAVIX PO SCH (09:45)
[2019-01-15] MEDS: IMDUR PO SCH (09:45)
[2019-01-15] MEDS: COLACE PO SCH ×2 (09:45→22:25)
[2019-01-15] MEDS ORDERED: LOVENOX SUB-Q SCH (10:00)
[2019-01-15] MEDS ORDERED: LEVAQUIN 500MG/100ML 500 MG/100 ML BAG IV SCH (10:00)
--- NOTE | 2019-01-15 11:19 | Progress Note ---
Assessment and Plan Assessment and plan: 71-year-old -[place] female with history of diabetes, asthma/ COPD, diverticulitis, ovarian cancer s/p hysterectomy who presents to [facility] ED with complaints of difficulty in breathing. Leukocytosis 12.5, hyperkalemia 6.1. Troponin elevated 2 with upward trend. Initial EKG showed sinus rhythm with prolonged QT interval, repeat EKG showed anterior STEMI. Code STEMI protocol was initiated and cardiology (Dr. Pedro) was notified. Pt was taken to [facility]. --STEMI; cardiology evaluated the patient s/p heart catheterization today;no significant coronary stenosis. The LAD and its diagonal system were tortuous, but free of significant disease. Ejection fraction 50-55%. Possible coronary spasm Antiplatelets ,nitrates, supportive care --Hyperkalemia; dictated --Exacerbation of COPD; oxygen, nebulizers, steroids and supportive care --Acute hypoxic respiratory failure; secondary to COPD exacerbation Continue nebulizers oxygen, evaluated for home oxygen tract discharge --DVT prophylaxis; Lovenox Monitor closely and adjust management as needed Stable to be transferred out of ICU, possible discharge tomorrow if stable Plan of care is reviewed with the patient and her nurse Critical care time 32 minutes History Interval history: Patient seen and examined medical records reviewed Patient underwent heart, findings noted Denies chest pain or shortness of breath Vital signs noted Hospitalist Physical - Constitutional Vitals: Temp Pulse Resp BP Pulse Ox 97.5 F L 80 22 154/73 85 01/15/19 08:00 01/15/19 09:45 01/15/19 08:31 01/15/19 09:45 01/15/19 08:31 General appearance: Present: no acute distress, well-nourished - EENT Eyes: Present: PERRL, EOM intact - Neck Neck: Present: supple, normal ROM - Respiratory Respiratory effort: normal Respiratory: bilateral: diminished, negative: rales, rhonchi, wheezing - Cardiovascular Rhythm: regular Heart Sounds: Present: S1 & S2 - Extremities Extremities: no ischemia, No edema - Abdominal General gastrointestinal: soft, non-tender, non-distended, normal bowel sounds - Integumentary Integumentary: Present: clear, warm - Psychiatric Psychiatric: appropriate mood/affect, cooperative - Neurologic Neurologic: CNII-XII intact, moves all extremities Results - Labs CBC & Chem 7: 01/15/19 01:28 07/18/19 01:28 Labs: Laboratory Last Values WBC 12.5 K/mm3 (4.5-11.0) H 01/14/19 21:09 RBC 4.12 M/mm3 (3.65-5.03) 01/14/19 21:09 Hgb 10.6 gm/dl (10.1-14.3) 01/15/19 01:28 Hct 34.6 % (30.3-42.9) 01/15/19 01:28 MCV 89 fl (79-97) 01/14/19 21:09 MCH 27 pg (28-32) L 01/14/19 21:09 MCHC 31 % (30-34) 01/14/19 21:09 RDW 16.0 % (13.2-15.2) H 01/14/19 21:09 Plt Count 246 K/mm3 (140-440) 01/15/19 01:28 Add Manual Diff Complete 01/14/19 21:09 Total Counted 100 01/14/19 21:09 Seg Neuts % (Manual) 86.0 % (40.0-70.0) H 01/14/19 21:09 0 % 01/14/19 21:09 4.0 % (13.4-35.0) L 01/14/19 21:09 Reactive Lymphs % (Man) 0 % 01/14/19 21:09 10.0 % (0.0-7.3) H 01/14/19 21:09 0 % (0.0-4.3) 01/14/19 21:09 0 % (0.0-1.8) 01/14/19 21:09 0 % 01/14/19 21:09 0 % 01/14/19 21:09 0 % 01/14/19 21:09 0 % 01/14/19 21:09 Nucleated RBC % Not Reportable 01/14/19 21:09 Seg Neutrophils # Man 10.8 K/mm3 (1.8-7.7) H 01/14/19 21:09 Band Neutrophils # 0.0 K/mm3 01/14/19 21:09 0.5 K/mm3 (1.2-5.4) L 01/14/19 21:09 Abs React Lymphs (Man) 0.0 K/mm3 01/14/19 21:09 1.3 K/mm3 (0.0-0.8) H 01/14/19 21:09 0.0 K/mm3 (0.0-0.4) 01/14/19 21:09 0.0 K/mm3 (0.0-0.1) 01/14/19 21:09 0.0 K/mm3 01/14/19 21:09 0.0 K/mm3 01/14/19 21:09 0.0 K/mm3 01/14/19 21:09 Blast Cells # 0.0 K/mm3 01/14/19 21:09 WBC Morphology Not Reportable 01/14/19 21:09 Hypersegmented Neuts Not Reportable 01/14/19 21:09 Hyposegmented Neuts Not Reportable 01/14/19 21:09 Hypogranular Neuts Not Reportable 01/14/19 21:09 Not Reportable 01/14/19 21:09 Not Reportable 01/14/19 21:09 Not Reportable 01/14/19 21:09 Not Reportable 01/14/19 21:09 Not Reportable 01/14/19 21:09 Not Reportable 01/14/19 21:09 Consistent w auto 01/14/19 21:09 Not Reportable 01/14/19 21:09 Plt Clumps, EDTA Not Reportable 01/14/19 21:09 1+ 01/14/19 21:09 Not Reportable 01/14/19 21:09 Not Reportable 01/14/19 21:09 Plt Morphology Comment Not Reportable 01/14/19 21:09 RBC Morphology Not Reportable 01/14/19 21:09 Dimorphic RBCs Not Reportable 01/14/19 21:09 Not Reportable 01/14/19 21:09 Not Reportable 01/14/19 21:09 Not Reportable 01/14/19 21:09 Not Reportable 01/14/19 21:09 Not Reportable 01/14/19 21:09 Not Reportable 01/14/19 21:09 Not Reportable 01/14/19 21:09 Not Reportable 01/14/19 21:09 Not Reportable 01/14/19 21:09 Not Reportable 01/14/19 21:09 Not Reportable 01/14/19 21:09 Not Reportable 01/14/19 21:09 Not Reportable 01/14/19 21:09 Not Reportable 01/14/19 21:09 Not Reportable 01/14/19 21:09 Not Reportable 01/14/19 21:09 Not Reportable 01/14/19 21:09 Not Reportable 01/14/19 21:09 Not Reportable 01/14/19 21:09 Acanthocytes (Spur) Not Reportable 01/14/19 21:09 Rouleaux Not Reportable 01/14/19 21:09 Not Reportable 01/14/19 21:09 Not Reportable 01/14/19 21:09 Not Reportable 01/14/19 21:09 Not Reportable 01/14/19 21:09 Hem Pathologist Commnt No 01/14/19 21:09 PT 14.5 Sec. (12.2-14.9) 01/15/19 01:28 INR 1.16 (0.87-1.13) H 01/15/19 01:28 APTT 26.1 Sec. (24.2-36.6) 01/15/19 01:28 381.33 ng/mlDDU (0-234) H 01/15/19 07:59 Heparin Anti-Xa Level < 0.10 U.I./ml (0.3-0.7) L 01/15/19 07:59 POC ABG pH 7.353 (7.35-7.45) 01/15/19 06:29 POC ABG pCO2 54.8 (35-45) H 01/15/19 06:29 POC ABG pO2 84 (80-105) 01/15/19 06:29 POC ABG HCO3 30.5 (22-26 mml/L) 01/15/19 06:29 POC ABG Total CO2 32 (23-27mmol/L) 01/15/19 06:29 POC ABG O2 Sat 96 01/15/19 06:29 POC ABG Base Excess 5 ((-2) - (+3)mmol/L) 01/15/19 06:29 40 % 01/15/19 06:29 Sodium 146 mmol/L (137-145) H 01/14/19 22:24 Potassium 4.3 mmol/L (3.6-5.0) D 01/15/19 01:28 Chloride 101.5 mmol/L (98-107) 01/14/19 22:24 Carbon Dioxide 27 mmol/L (22-30) 01/14/19 22:24 24 mmol/L 01/14/19 22:24 BUN 23 mg/dL (7-17) H 01/14/19 22:24 1.0 mg/dL (0.7-1.2) 01/14/19 22:24 Estimated GFR > 60 ml/min 01/14/19 22:24 23 % 01/14/19 22:24 Glucose 221 mg/dL (65-100) H 01/14/19 22:24 POC Glucose 180 (70-105) H 01/15/19 07:46 4.8 % (4-6) 01/15/19 02:04 Calcium 9.9 mg/dL (8.4-10.2) 01/14/19 22:24 0.60 mg/dL (0.1-1.2) 01/14/19 22:24 0.2 mg/dL (0-0.2) 01/14/19 22:24 0.4 mg/dL 01/14/19 22:24 AST 52 units/L (5-40) H 01/14/19 22:24 ALT 62 units/L (7-56) H 01/14/19 22:24 113 units/L (35-129) 01/14/19 22:24 0.255 ng/mL (0.00-0.029) H* 01/14/19 22:52 NT-Pro-B Natriuret Pep 8638 pg/mL (0-900) H 01/14/19 22:24 8.1 g/dL (6.3-8.2) 01/14/19 22:24 4.5 g/dL (3.9-5) 01/14/19 22:24 1.3 % 01/14/19 22:24 Triglycerides 53 mg/dL (2-149) 01/14/19 21:09 Cholesterol 129 mg/dL (50-199) 01/14/19 21:09 56 mg/dL (50-130) 01/14/19 21:09 73 mg/dL (40-59) H 01/14/19 21:09 1.76 % 01/14/19 21:09 Active Medications - Current Medications Current Medications: Generic Name Dose Route Start Last Admin Trade Name Freq PRN Reason Stop Dose Admin Acetaminophen 650 mg 01/15/19 00:51 Tylenol PO Q4H PRN Pain MILD(1-3)/Fever >100.5/GOVEA Albuterol 2.5 mg 01/15/19 00:51 Proventil IH Q3HRT PRN Shortness Of Breath Albuterol/Ipratropium 1 ampul 01/15/19 02:00 01/15/19 07:29 Duoneb *Not For Prn Use* IH 1 ampul Q6HRT DONNA Administration Atorvastatin Calcium 40 mg 01/15/19 22:00 Lipitor PO QHS DONNA Budesonide 0.5 mg 01/15/19 08:00 01/15/19 07:29 Pulmicort IH 0.5 mg Q12HRT DONNA Administration Carvedilol 3.125 mg 01/15/19 22:00 Coreg PO BID DONNA Clopidogrel Bisulfate 75 mg 01/15/19 10:00 01/15/19 09:45 Plavix PO 75 mg QDAY DONNA Administration Dextrose 50 ml 01/15/19 00:51 D50w (25gm) Syringe IV PRN PRN Hypoglycemia Docusate Sodium 100 mg 01/15/19 10:00 01/15/19 09:45 Colace PO 100 mg BID DONNA Administration Guaifenesin 600 mg 01/15/19 10:00 Mucinex Er PO BID DONNA Heparin Sodium/Sodium Chloride 25,000 unit in 500 mls @ 15 mls/hr 01/15/19 06:00 01/15/19 10:56 Heparin/ 0.45% Nacl-25,000 Unit/500 Ml IV 850 units/hr TITRATE DONNA 17 mls/hr Administration Protocol 750 UNITS/HR Sodium Chloride 1,000 mls @ 100 mls/hr 01/15/19 03:00 Nacl 0.9% 1000 Ml IV 01/15/19 12:59 DIRECT DONNA Levofloxacin/Dextrose 500 mg in 100 mls @ 100 mls/hr 01/15/19 10:00 01/15/19 09:46 Levaquin 500mg/100ml IV 100 mls/hr Q48HR DONNA Administration Protocol Insulin Human Lispro 0 unit 01/15/19 07:30 01/15/19 08:30 Humalog SUB-Q 2 unit ACHS DONNA Administration Protocol Isosorbide Mononitrate 30 mg 01/15/19 10:00 01/15/19 09:45 Imdur PO 30 mg QDAY DONNA Administration Methylprednisolone Sodium Succinate 80 mg 01/15/19 06:00 Solu-Medrol IV Q8HR [facility] Nitroglycerin 0.4 mg 01/15/19 01:35 Nitrostat SL .Q5MIN PRN Chest Pain Ondansetron HCl 4 mg 01/15/19 00:51 Zofran IV Q8H PRN Nausea And Vomiting Oxycodone/Acetaminophen 1 tab 01/15/19 00:51 Percocet 5/325 PO Q6H PRN Pain, Moderate (4-6) Pneumococcal Polyvalent Vaccine 0.5 ml 01/15/19 12:00 Pneumovax 23 IM 01/15/19 12:01 .ONCE ONE Sodium Chloride 10 ml 01/15/19 10:00 Sodium Chloride Flush Syringe 10 Ml IV BID DONNA Sodium Chloride 10 ml 01/15/19 00:51 Sodium Chloride Flush Syringe 10 Ml IV PRN PRN LINE FLUSH
[2019-01-15] MEDS: MUCINEX ER PO SCH ×2 (11:30→22:30)
[2019-01-15] MEDS ORDERED: PNEUMOVAX 23 IM ONE (12:00)
--- NOTE | 2019-01-15 12:36 | Consultation ---
History of Present Illness Consult date: 01/15/19 Requesting physician: JORDEN PUENTE Reason for consult: COPD, other (STEMI) History of present illness: 78 y/o female known to our group as she follows with [facility] admitted with shortness of breath. EKG showed anterior STEMI and she had mildly positive troponin, she was taken to the [facility] but found to have clean coronaries. She desatted and was placed on bipap therapy so transferred to the ICU. Since then she has been weaned off bipap. She does however appear to be in a COPD exacerbation. patient BNP was also elevated. She was given a dose of lasix around midnight last night. Remainder is negative. Past History Past Medical History: cancer (ovarian s/p hysterectomy), COPD, diabetes, other (anxiety, diverticulitis) Past Surgical History: hysterectomy, Other (broken tail bone) Social history: lives with family, other (former smoker) Family history: no significant family history Medications and Allergies Allergies Allergy/AdvReac Type Severity Reaction Status Date / Time No Known Allergies Allergy Verified 04/27/16 11:47 Home Medications Medication Instructions Recorded Confirmed Last Taken Type Budesonide/Formoterol Fumarate 2 puff INHALATION BID 04/27/16 12/14/18 05/27/16 History [Symbicort 160-4.5 Mcg Inhaler] Metformin HCl [metFORMIN ER] 500 mg PO QPM 04/27/16 12/14/18 05/26/16 History LORazepam 0.5 mg PO PRN 05/28/16 12/14/18 Unknown History PARoxetine HCl [Paroxetine HCl] 10 mg PO DAILY 05/28/16 12/14/18 05/27/16 History Active Meds: Active Medications Acetaminophen (Tylenol) 650 mg PO Q4H PRN PRN Reason: Pain MILD(1-3)/Fever >100.5/GOVEA Albuterol (Proventil) 2.5 mg IH Q3HRT PRN PRN Reason: Shortness Of Breath Albuterol/Ipratropium (Duoneb *Not For Prn Use*) 1 ampul IH Q6HRT [facility] Last Admin: 01/15/19 07:29 Dose: 1 ampul Documented by: Atorvastatin Calcium (Lipitor) 40 mg PO QHS DONNA Budesonide (Pulmicort) 0.5 mg IH Q12HRT [facility] Last Admin: 01/15/19 07:29 Dose: 0.5 mg Documented by: Carvedilol (Coreg) 3.125 mg PO BID [facility] Clopidogrel Bisulfate (Plavix) 75 mg PO QDAY [facility] Last Admin: 01/15/19 09:45 Dose: 75 mg Documented by: Dextrose (D50w (25gm) Syringe) 50 ml IV PRN PRN PRN Reason: Hypoglycemia Docusate Sodium (Colace) 100 mg PO BID [facility] Last Admin: 01/15/19 09:45 Dose: 100 mg Documented by: Guaifenesin (Mucinex Er) 600 mg PO BID [facility] Last Admin: 01/15/19 11:30 Dose: 600 mg Documented by: Heparin Sodium/Sodium Chloride (Heparin/ 0.45% Nacl-25,000 Unit/500 Ml) 25,000 unit in 500 mls @ 15 mls/hr IV TITRATE [facility]; Protocol Last Admin: 01/15/19 10:56 Dose: 850 units/hr, 17 mls/hr Documented by: Sodium Chloride (Nacl 0.9% 1000 Ml) 1,000 mls @ 100 mls/hr IV DIRECT [facility] Stop: 01/15/19 12:59 Insulin Human Lispro (Humalog) 0 unit SUB-Q ACHS [facility]; Protocol Last Admin: 01/15/19 12:31 Dose: 2 unit Documented by: Isosorbide Mononitrate (Imdur) 30 mg PO QDAY [facility] Last Admin: 01/15/19 09:45 Dose: 30 mg Documented by: Methylprednisolone Sodium Succinate (Solu-Medrol) 80 mg IV Q8HR [facility] Nitroglycerin (Nitrostat) 0.4 mg SL .Q5MIN PRN PRN Reason: Chest Pain Ondansetron HCl (Zofran) 4 mg IV Q8H PRN PRN Reason: Nausea And Vomiting Oxycodone/Acetaminophen (Percocet 5/325) 1 tab PO Q6H PRN PRN Reason: Pain, Moderate (4-6) Sodium Chloride (Sodium Chloride Flush Syringe 10 Ml) 10 ml IV BID [facility] Sodium Chloride (Sodium Chloride Flush Syringe 10 Ml) 10 ml IV PRN PRN PRN Reason: LINE FLUSH Review of Systems All systems: negative Physical Examination Vital signs: Vital Signs Temp Pulse Resp BP Pulse Ox 97.8 F 63 20 94/55 62 L 01/14/19 21:14 01/14/19 21:14 01/14/19 21:14 01/14/19 21:14 01/14/19 21:14 Results - Laboratory Findings CBC and BMP: 01/15/19 01:28 01/15/19 01:28 ABG POC ABG pH 7.353 (7.35-7.45) 01/15/19 06:29 POC ABG pCO2 54.8 (35-45) H 01/15/19 06:29 POC ABG pO2 84 (80-105) 01/15/19 06:29 POC ABG HCO3 30.5 (22-26 mml/L) 01/15/19 06:29 POC ABG Total CO2 32 (23-27mmol/L) 01/15/19 06:29 POC ABG O2 Sat 96 01/15/19 06:29 PT/INR, D-dimer PT 14.5 Sec. (12.2-14.9) 01/15/19 01:28 INR 1.16 (0.87-1.13) H 01/15/19 01:28 381.33 ng/mlDDU (0-234) H 01/15/19 07:59 Abnormal lab findings: Abnormal Labs 01/14/19 01/14/19 01/14/19 21:09 21:09 21:09 WBC 12.5 H MCH 27 L RDW 16.0 H Seg Neuts % (Manual) 86.0 H Lymphocytes % (Manual) 4.0 L Monocytes % (Manual) 10.0 H Seg Neutrophils # Man 10.8 H Lymphocytes # (Manual) 0.5 L Monocytes # (Manual) 1.3 H INR D-Dimer Heparin Anti-Xa Level POC ABG pH POC ABG pCO2 POC ABG pO2 Sodium Potassium 6.2 H* BUN 23 H Glucose 227 H POC Glucose AST 51 H ALT 61 H Troponin T 0.224 H* NT-Pro-B Natriuret Pep HDL Cholesterol 73 H 01/14/19 01/14/19 01/15/19 22:24 22:52 00:35 WBC MCH RDW Seg Neuts % (Manual) Lymphocytes % (Manual) Monocytes % (Manual) Seg Neutrophils # Man Lymphocytes # (Manual) Monocytes # (Manual) INR D-Dimer Heparin Anti-Xa Level POC ABG pH 7.296 L POC ABG pCO2 64.0 H POC ABG pO2 65 L Sodium 146 H Potassium 6.1 H* BUN 23 H Glucose 221 H POC Glucose AST 52 H ALT 62 H Troponin T 0.255 H* NT-Pro-B Natriuret Pep 8638 H HDL Cholesterol 01/15/19 01/15/19 01/15/19 01:20 01:28 03:45 WBC MCH RDW Seg Neuts % (Manual) Lymphocytes % (Manual) Monocytes % (Manual) Seg Neutrophils # Man Lymphocytes # (Manual) Monocytes # (Manual) INR 1.16 H D-Dimer Heparin Anti-Xa Level POC ABG pH POC ABG pCO2 POC ABG pO2 Sodium Potassium BUN Glucose POC Glucose 173 H 159 H AST ALT Troponin T NT-Pro-B Natriuret Pep HDL Cholesterol 01/15/19 01/15/19 01/15/19 04:27 06:29 07:46 WBC MCH RDW Seg Neuts % (Manual) Lymphocytes % (Manual) Monocytes % (Manual) Seg Neutrophils # Man Lymphocytes # (Manual) Monocytes # (Manual) INR D-Dimer Heparin Anti-Xa Level POC ABG pH 7.282 L POC ABG pCO2 66.5 H 54.8 H POC ABG pO2 65 L Sodium Potassium BUN Glucose POC Glucose 180 H AST ALT Troponin T NT-Pro-B Natriuret Pep HDL Cholesterol 01/15/19 01/15/19 01/15/19 07:59 07:59 11:38 WBC MCH RDW Seg Neuts % (Manual) Lymphocytes % (Manual) Monocytes % (Manual) Seg Neutrophils # Man Lymphocytes # (Manual) Monocytes # (Manual) INR D-Dimer 381.33 H Heparin Anti-Xa Level < 0.10 L POC ABG pH POC ABG pCO2 POC ABG pO2 Sodium Potassium BUN Glucose POC Glucose 181 H AST ALT Troponin T NT-Pro-B Natriuret Pep HDL Cholesterol - Diagnostic Findings Chest x-ray: image reviewed (hyperinflation consistent with air trapping and obstruction, emphsyema, and maybe some volume overload.) Assessment and Plan 78 y/o female with acute respiratory failure, thought secondary to sTEMI, found to have clean arteries, and elevated BNP with possible volume overload. 1. Agree with current steroid dosing and BID pulmicort along with scheduled duonebs. 2. ABG does not fit but if patient does not improve could consider CTA to rule PE. Would not do right now, try diuresis and steroids first, especially since she just had a dye load from the cath 3. BP control 4. Bipap PRN 5. Will stop IVF's 6. Stable for transfer to the floor.
--- NOTE | 2019-01-15 12:41 | Progress Note ---
Assessment and Plan COPD exacerbation STEMI A cardiac catheterization showed no significant coronary stenosis. The LAD and its diagonal system were tortuous, but free of significant disease. Ejection fraction 50-55%. Hyperkalemia Continue medical management to include oral antiplatelets and long-acting oral nitrates for possible transient coronary spasm. Subjective Date of service: 01/15/19 Interval history: Patient is resting in bed comfortably. She denies chest pain. Objective Vital Signs Temp Pulse Pulse Pulse Resp Resp Resp 01/15/19 11:41 87 23 01/15/19 11:31 88 22 01/15/19 11:30 98.2 F 01/15/19 11:21 80 24 01/15/19 11:11 82 23 01/15/19 11:00 81 22 01/15/19 10:51 99 H 18 01/15/19 10:41 88 17 01/15/19 10:31 79 21 01/15/19 10:21 85 26 H 01/15/19 10:11 81 21 01/15/19 10:00 85 24 01/15/19 09:51 85 18 01/15/19 09:45 80 01/15/19 09:41 86 24 01/15/19 09:31 93 H 15 01/15/19 09:21 88 27 H 01/15/19 09:11 91 H 25 H 01/15/19 09:01 92 H 22 01/15/19 08:51 85 24 01/15/19 08:41 89 26 H 01/15/19 08:31 83 22 01/15/19 08:21 87 19 01/15/19 08:10 87 20 01/15/19 08:00 97.5 F L 89 21 01/15/19 07:52 18 07:51 87 21 01/15/19 07:41 73 22 01/15/19 07:31 68 16 01/15/19 07:30 67 67 20 20 18 07:21 66 26 H 01/15/19 07:11 67 24 01/15/19 07:00 68 15 1819 06:51 67 16 18/ 06:41 69 15 01/15/19 06:31 68 23 01/15/19 06:26 84 26 H 01/15/19 06:21 68 24 01/15/19 06:11 86 16 01/15/19 06:00 61 12 01/15/19 05:51 64 24 01/15/19 05:41 63 24 01/15/19 05:31 63 23 01/15/19 05:21 65 14 01/15/19 05:11 65 16 01/15/19 05:00 67 24 01/15/19 04:51 74 22 01/15/19 04:41 65 20 01/15/19 04:31 93 H 24 01/15/19 04:21 71 16 01/15/19 04:11 77 20 01/15/19 04:08 84 26 H 01/15/19 04:00 97.6 F 77 22 01/15/19 03:50 68 15 01/15/19 03:40 73 17 01/15/19 03:30 79 18 01/15/19 03:20 82 01/15/19 01:50 115 H 26 H 01/15/19 01:35 110 H 24 01/15/19 01:31 98 H 28 H 01/15/19 01:20 107 H 24 01/15/19 01:06 117 H 24 01/15/19 01:05 117 H 24 01/15/19 01:04 116 H 25 H 01/15/19 01:03 116 H 25 H 01/15/19 01:02 117 H 01/15/19 01:00 119 H 25 H 01/15/19 00:59 99 H 22 01/15/19 00:44 65 17 01/15/19 00:35 96 H 22 01/14/19 23:09 82 26 H 01/14/19 21:38 91 H 17 01/14/19 21:14 97.8 F 63 20 BP BP Pulse Ox 01/15/19 11:41 157/73 96 01/15/19 11:31 157/73 92 01/15/19 11:30 01/15/19 11:21 157/73 95 01/15/19 11:11 157/73 97 01/15/19 11:00 157/73 97 01/15/19 10:51 140/77 94 01/15/19 10:41 140/77 100 01/15/19 10:31 140/77 93 01/15/19 10:21 140/77 87 01/15/19 10:11 140/77 91 07/18/19 10:00 140/77 07/18/19 09:51 154/73 97 07/18/19 09:45 154/73 07/18/19 09:41 154/73 100 07/18/19 09:31 154/73 97 07/18/19 09:21 154/73 90 07/18/19 09:11 154/73 89 07/18/19 09:01 154/73 86 07/18/19 08:51 164/79 88 07/18/19 08:41 164/79 88 07/18/19 08:31 164/79 85 07/18/19 08:21 164/79 84 07/18/19 08:10 164/79 92 07/18/19 08:00 164/79 92 07/18/19 07:52 100 07/18/19 07:51 157/83 98 07/18/19 07:41 157/83 96 07/18/19 07:31 157/83 93 07/18/19 07:30 07/18/19 07:21 157/83 91 07/18/19 07:11 157/83 92 07/18/19 07:00 157/83 95 07/18/19 06:51 139/72 92 07/18/19 06:41 139/72 95 07/18/19 06:31 139/72 97 07/18/19 06:26 137/85 100 07/18/19 06:21 139/72 99 07/18/19 06:11 139/72 07/18/19 06:00 139/72 100 07/18/19 05:51 166/85 99 07/18/19 05:41 166/85 100 07/18/19 05:31 166/85 100 07/18/19 05:21 166/85 99 07/18/19 05:11 166/85 98 07/18/19 05:00 166/85 99 07/18/19 04:51 155/81 99 07/18/19 04:41 155/81 100 07/18/19 04:31 155/81 98 07/18/19 04:21 155/81 95 07/18/19 04:11 155/81 93 07/18/19 04:08 146/87 100 07/18/19 04:00 144/81 92 07/18/19 03:50 155/81 93 01/15/19 03:40 155/81 93 01/15/19 03:30 155/81 95 01/15/19 03:20 100 01/15/19 01:50 163/94 94 01/15/19 01:35 156/88 94 01/15/19 01:31 97 01/15/19 01:20 154/87 95 01/15/19 01:06 77 L 01/15/19 01:05 69 L 01/15/19 01:04 72 L 01/15/19 01:03 82 L 01/15/19 01:02 92 01/15/19 01:00 141/120 95 01/15/19 00:59 01/15/19 00:44 172/100 97 01/15/19 00:35 01/14/19 23:09 154/63 93 01/14/19 21:38 133/66 91 01/14/19 21:14 94/55 62 L - Physical Examination General: No Apparent Distress HEENT: Positive: PERRL Neck: Positive: neck supple Cardiac: Positive: Reg Rate and Rhythm Lungs: Positive: Decreased Breath Sounds Neuro: Positive: Grossly Intact Incision: Cardiac Cath Site Extremities: Absent: edema - Labs and Meds Cardiac Enzymes 01/14/19 01/14/19 Range/Units 21:09 22:24 AST 51 H 52 H (5-40) units/L Coagulation 01/15/19 Range/Units 01:28 PT 14.5 (12.2-14.9) Sec. INR 1.16 H (0.87-1.13) APTT 26.1 (24.2-36.6) Sec. Lipids 01/14/19 Range/Units 21:09 Triglycerides 53 (2-149) mg/dL Cholesterol 129 (50-199) mg/dL HDL Cholesterol 73 H (40-59) mg/dL Cholesterol/HDL Ratio 1.76 % CBC 01/14/19 01/15/19 Range/Units 21:09 01:28 WBC 12.5 H (4.5-11.0) K/mm3 RBC 4.12 (3.65-5.03) M/mm3 Hgb 11.1 10.6 (10.1-14.3) gm/dl Hct 36.6 34.6 (30.3-42.9) % Plt Count 287 246 (140-440) K/mm3 Comprehensive Metabolic Panel 01/14/19 01/14/19 01/15/19 Range/Units 21:09 22:24 01:28 Sodium 144 146 H (137-145) mmol/L Potassium 6.2 H* 6.1 H* 4.3 D (3.6-5.0) mmol/L Chloride 101.2 101.5 (98-107) mmol/L Carbon Dioxide 29 27 (22-30) mmol/L BUN 23 H 23 H (7-17) mg/dL Creatinine 1.0 1.0 (0.7-1.2) mg/dL Glucose 227 H 221 H (65-100) mg/dL Calcium 9.9 9.9 (8.4-10.2) mg/dL Direct Bilirubin 0.2 (0-0.2) mg/dL Indirect Bilirubin 0.4 mg/dL AST 51 H 52 H (5-40) units/L ALT 61 H 62 H (7-56) units/L Alkaline Phosphatase 112 113 (35-129) units/L Total Protein 7.9 8.1 (6.3-8.2) g/dL Albumin 4.5 4.5 (3.9-5) g/dL
[2019-01-15] MEDS: SOLU-Medrol IV SCH ×3 (13:37→22:25)
[2019-01-15 14:10] LABS: Bacteria,Urine 1+ /HPF (Negative); Bilirubin,Urine NEG (Negative); Blood,Urine SM (Negative); Color,Urine Straw (Yellow); Mucus,Urine FEW /HPF; Protein,Urine <15 mg/dL mg/dL (Negative); Urobilinogen,Urine < 2.0 mg/dL (<2.0); WBC,Urine < 1.0 /HPF (0.0-6.0)
[2019-01-15] MEDS: SODIUM CHLORIDE FLUSH SYRINGE 10 ML IV SCH ×2 (17:17→22:26)
--- NOTE | 2019-01-15 18:45 | Progress Note ---
Assessment and Plan Assessment and plan: 71-year-old -Citizen Of [place] female with history of diabetes, asthma/ COPD, diverticulitis, ovarian cancer s/p hysterectomy who presents to [facility] ED with complaints of difficulty in breathing. Leukocytosis 12.5, hyperkalemia 6.1. Troponin elevated 2 with upward trend. Initial EKG showed sinus rhythm with prolonged QT interval, repeat EKG showed anterior STEMI. Code STEMI protocol was initiated and cardiology (Dr. Pedro) was notified. 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 STEMI- anterior Acute exacerbation COPD Acute hypoxic respiratory failure Leukocytosis Hyperkalemia Dehydration Elevated troponin ?? Acute CHF Hospitalist Physical - Constitutional Vitals: Temp Pulse Resp BP Pulse Ox 98.2 F 96 H 19 160/79 86 01/15/19 11:30 01/15/19 15:01 01/15/19 15:01 01/15/19 15:01 01/15/19 15:01 General appearance: Present: mild distress, other (on BiPAP) Results - Labs CBC & Chem 7: 01/15/19 01:28 01/15/19 01:28 Labs: Laboratory Last Values WBC 12.5 K/mm3 (4.5-11.0) H 01/14/19 21:09 RBC 4.12 M/mm3 (3.65-5.03) 01/14/19 21:09 Hgb 10.6 gm/dl (10.1-14.3) 01/15/19 01:28 Hct 34.6 % (30.3-42.9) 01/15/19 01:28 MCV 89 fl (79-97) 01/14/19 21:09 MCH 27 pg (28-32) L 01/14/19 21:09 MCHC 31 % (30-34) 01/14/19 21:09 RDW 16.0 % (13.2-15.2) H 01/14/19 21:09 Plt Count 246 K/mm3 (140-440) 01/15/19 01:28 Add Manual Diff Complete 01/14/19 21:09 Total Counted 100 01/14/19 21:09 Seg Neuts % (Manual) 86.0 % (40.0-70.0) H 01/14/19 21:09 0 % 01/14/19 21:09 4.0 % (13.4-35.0) L 01/14/19 21:09 Reactive Lymphs % (Man) 0 % 01/14/19 21:09 10.0 % (0.0-7.3) H 01/14/19 21:09 0 % (0.0-4.3) 01/14/19 21:09 0 % (0.0-1.8) 01/14/19 21:09 0 % 01/14/19 21:09 0 % 01/14/19 21:09 0 % 01/14/19 21:09 0 % 01/14/19 21:09 Nucleated RBC % Not Reportable 01/14/19 21:09 Seg Neutrophils # Man 10.8 K/mm3 (1.8-7.7) H 01/14/19 21:09 Band Neutrophils # 0.0 K/mm3 01/14/19 21:09 0.5 K/mm3 (1.2-5.4) L 01/14/19 21:09 Abs React Lymphs (Man) 0.0 K/mm3 01/14/19 21:09 1.3 K/mm3 (0.0-0.8) H 01/14/19 21:09 0.0 K/mm3 (0.0-0.4) 01/14/19 21:09 0.0 K/mm3 (0.0-0.1) 01/14/19 21:09 0.0 K/mm3 01/14/19 21:09 0.0 K/mm3 01/14/19 21:09 0.0 K/mm3 01/14/19 21:09 Blast Cells # 0.0 K/mm3 01/14/19 21:09 WBC Morphology Not Reportable 01/14/19 21:09 Hypersegmented Neuts Not Reportable 01/14/19 21:09 Hyposegmented Neuts Not Reportable 01/14/19 21:09 Hypogranular Neuts Not Reportable 01/14/19 21:09 Not Reportable 01/14/19 21:09 Not Reportable 01/14/19 21:09 Not Reportable 01/14/19 21:09 Not Reportable 01/14/19 21:09 Not Reportable 01/14/19 21:09 Not Reportable 01/14/19 21:09 Consistent w auto 01/14/19 21:09 Not Reportable 01/14/19 21:09 Plt Clumps, EDTA Not Reportable 01/14/19 21:09 1+ 01/14/19 21:09 Not Reportable 01/14/19 21:09 Not Reportable 01/14/19 21:09 Plt Morphology Comment Not Reportable 01/14/19 21:09 RBC Morphology Not Reportable 01/14/19 21:09 Dimorphic RBCs Not Reportable 01/14/19 21:09 Not Reportable 01/14/19 21:09 Not Reportable 01/14/19 21:09 Not Reportable 01/14/19 21:09 Not Reportable 01/14/19 21:09 Not Reportable 01/14/19 21:09 Not Reportable 01/14/19 21:09 Not Reportable 01/14/19 21:09 Not Reportable 01/14/19 21:09 Not Reportable 01/14/19 21:09 Not Reportable 01/14/19 21:09 Not Reportable 01/14/19 21:09 Not Reportable 01/14/19 21:09 Not Reportable 01/14/19 21:09 Not Reportable 01/14/19 21:09 Not Reportable 01/14/19 21:09 Not Reportable 01/14/19 21:09 Not Reportable 01/14/19 21:09 Not Reportable 01/14/19 21:09 Not Reportable 01/14/19 21:09 Acanthocytes (Spur) Not Reportable 01/14/19 21:09 Rouleaux Not Reportable 01/14/19 21:09 Not Reportable 01/14/19 21:09 Not Reportable 01/14/19 21:09 Not Reportable 01/14/19 21:09 Not Reportable 01/14/19 21:09 Hem Pathologist Commnt No 01/14/19 21:09 PT 14.5 Sec. (12.2-14.9) 01/15/19 01:28 INR 1.16 (0.87-1.13) H 01/15/19 01:28 APTT 26.1 Sec. (24.2-36.6) 01/15/19 01:28 381.33 ng/mlDDU (0-234) H 01/15/19 07:59 Heparin Anti-Xa Level 0.36 U.I./ml (0.3-0.7) 01/15/19 16:26 POC ABG pH 7.353 (7.35-7.45) 01/15/19 06:29 POC ABG pCO2 54.8 (35-45) H 01/15/19 06:29 POC ABG pO2 84 (80-105) 01/15/19 06:29 POC ABG HCO3 30.5 (22-26 mml/L) 01/15/19 06:29 POC ABG Total CO2 32 (23-27mmol/L) 01/15/19 06:29 POC ABG O2 Sat 96 01/15/19 06:29 POC ABG Base Excess 5 ((-2) - (+3)mmol/L) 01/15/19 06:29 40 % 01/15/19 06:29 Sodium 146 mmol/L (137-145) H 01/14/19 22:24 Potassium 4.3 mmol/L (3.6-5.0) D 01/15/19 01:28 Chloride 101.5 mmol/L (98-107) 01/14/19 22:24 Carbon Dioxide 27 mmol/L (22-30) 01/14/19 22:24 24 mmol/L 01/14/19 22:24 BUN 23 mg/dL (7-17) H 01/14/19 22:24 1.0 mg/dL (0.7-1.2) 01/14/19 22:24 Estimated GFR > 60 ml/min 01/14/19 22:24 23 % 01/14/19 22:24 Glucose 221 mg/dL (65-100) H 01/14/19 22:24 POC Glucose 131 (70-105) H 01/15/19 17:16 4.8 % (4-6) 01/15/19 02:04 Calcium 9.9 mg/dL (8.4-10.2) 01/14/19 22:24 0.60 mg/dL (0.1-1.2) 01/14/19 22:24 0.2 mg/dL (0-0.2) 01/14/19 22:24 0.4 mg/dL 01/14/19 22:24 AST 52 units/L (5-40) H 01/14/19 22:24 ALT 62 units/L (7-56) H 01/14/19 22:24 113 units/L (35-129) 01/14/19 22:24 0.255 ng/mL (0.00-0.029) H* 01/14/19 22:52 NT-Pro-B Natriuret Pep 8638 pg/mL (0-900) H 01/14/19 22:24 8.1 g/dL (6.3-8.2) 01/14/19 22:24 4.5 g/dL (3.9-5) 01/14/19 22:24 1.3 % 01/14/19 22:24 Triglycerides 53 mg/dL (2-149) 01/14/19 21:09 Cholesterol 129 mg/dL (50-199) 01/14/19 21:09 56 mg/dL (50-130) 01/14/19 21:09 73 mg/dL (40-59) H 01/14/19 21:09 1.76 % 01/14/19 21:09 Straw (Yellow) 01/15/19 12:52 Clear (Clear) 01/15/19 12:52 5.0 (5.0-7.0) 01/15/19 12:52 Ur Specific [place] 1.024 (1.003-1.030) 01/15/19 12:52 <15 mg/dl mg/dL (Negative) 01/15/19 12:52 Neg mg/dL (Negative) 01/15/19 12:52 Neg mg/dL (Negative) 01/15/19 12:52 Sm (Negative) 01/15/19 12:52 Neg (Negative) 01/15/19 12:52 Neg (Negative) 01/15/19 12:52 < 2.0 mg/dL (<2.0) 01/15/19 12:52 Ur Leukocyte Esterase Neg (Negative) 01/15/19 12:52 < 1.0 /HPF (0.0-6.0) 01/15/19 12:52 1.0 /HPF (0.0-6.0) 01/15/19 12:52 U Epithel Cells (Auto) < 1.0 /HPF (0-13.0) 01/15/19 12:52 1+ /HPF (Negative) 01/15/19 12:52 Few /HPF 01/15/19 12:52 Active Medications - Current Medications Current Medications: Generic Name Dose Route Start Last Admin Trade Name Freq PRN Reason Stop Dose Admin Acetaminophen 650 mg 01/15/19 00:51 Tylenol PO Q4H PRN Pain MILD(1-3)/Fever >100.5/GOVEA Albuterol 2.5 mg 01/15/19 00:51 Proventil IH Q3HRT PRN Shortness Of Breath Albuterol/Ipratropium 1 ampul 01/15/19 02:00 01/15/19 13:30 Duoneb *Not For Prn Use* IH 1 ampul Q6HRT DONNA Administration Atorvastatin Calcium 40 mg 01/15/19 22:00 Lipitor PO QHS DONNA Budesonide 0.5 mg 01/15/19 08:00 01/15/19 07:29 Pulmicort IH 0.5 mg Q12HRT DONNA Administration Carvedilol 3.125 mg 01/15/19 22:00 Coreg PO BID [facility] Clopidogrel Bisulfate 75 mg 01/15/19 10:00 01/15/19 09:45 Plavix PO 75 mg QDAY DONNA Administration Dextrose 50 ml 01/15/19 00:51 D50w (25gm) Syringe IV PRN PRN Hypoglycemia Docusate Sodium 100 mg 01/15/19 10:00 01/15/19 09:45 Colace PO 100 mg BID DONNA Administration Guaifenesin 600 mg 01/15/19 10:00 01/15/19 11:30 Mucinex Er PO 600 mg BID DONNA Administration Heparin Sodium/Sodium Chloride 25,000 unit in 500 mls @ 15 mls/hr 01/15/19 06:00 01/15/19 17:42 Heparin/ 0.45% Nacl-25,000 Unit/500 Ml IV 01/16/19 08:00 800 units/hr TITRATE DONNA 16 mls/hr Titration Protocol 750 UNITS/HR Insulin Human Lispro 0 unit 01/15/19 07:30 01/15/19 17:16 Humalog SUB-Q Not Given ACHS [facility] Protocol Isosorbide Mononitrate 30 mg 01/15/19 10:00 01/15/19 09:45 Imdur PO 30 mg QDAY DONNA Administration Methylprednisolone Sodium Succinate 80 mg 01/15/19 06:00 01/15/19 16:27 Solu-Medrol IV Not Given Q8HR DONNA Nitroglycerin 0.4 mg 01/15/19 01:35 Nitrostat SL .Q5MIN PRN Chest Pain Ondansetron HCl 4 mg 01/15/19 00:51 Zofran IV Q8H PRN Nausea And Vomiting Oxycodone/Acetaminophen 1 tab 01/15/19 00:51 Percocet 5/325 PO Q6H PRN Pain, Moderate (4-6) Sodium Chloride 10 ml 01/15/19 10:00 01/15/19 17:17 Sodium Chloride Flush Syringe 10 Ml IV 10 ml BID DONNA Administration Sodium Chloride 10 ml 01/15/19 00:51 Sodium Chloride Flush Syringe 10 Ml IV PRN PRN LINE FLUSH Nutrition/Malnutrition Assess - Dietary Evaluation Nutrition/Malnutrition Findings: Nutrition Notes Start: 01/15/19 15:42 Freq: Status: Active Protocol: Document 01/15/19 15:42 RM (Rec: 01/15/19 15:52 RM [id number]) Nutrition Notes Need for Assessment generated from: MST Initial or Follow up Assessment Current Diagnosis COPD,Diabetes Other Pertinent Diagnosis Diverticulitis, Hx ovarian CA Current Diet Cardiac Labs/Tests Reviewed Pertinent Medications Solu-Medrol Height 5 ft 3 in Weight 54.2 kg Usual Body Weight 72.73 kg [place] Body Weight (kg) 52.27 BMI 21.2 Weight change and time frame 25.5% wt loss X 3 years Subjective/Other Information Screened for malnutrition. Pt stated that [employer] her appetite was poor d/t decreased ability to taste and smell foods. Stated that she was mostly consuming fluids but also ate a small breakfast and dinner. Stated sometimes she drank a Glucerna for lunch . Stated that her appetite is poor here and that she has only been consuming liquids. Stated UBW was 160 lbs in October 2015. No temporal or orbital wasting . Burn Absent Trauma Absent #1 Nutrition Diagnosis Inadequate oral intake Etiology decreased ability to taste and smell foods As Evidenced by Signs and Symptoms pt statement that she has only been consuming liquids Is patient on ventilator? No Is Patient Ambulatory and/or Out of Bed Yes REE-([facility]-ambulatory/OOB) [ 1294.969 [id number]] Calculation Used for Recommendations [facility] Additional Notes Protein Needs: 54-65g (1-1.2g/ kg) Fluid Needs: 1 ml/kcal Nutrition Intervention Change Diet Order: Consistent CHO Add Supplement/Snack (indicate name/kcal Glucerna BID /protein ) Provides kCal: 440 Provides Protein (gm) 20 Goal #1 Meet at least 75% of calorie and protein needs via PO and ONS intakes Anticipated Discharge Needs: Consistent CHO diet Follow-Up By: 01/19/19 Additional Comments Follow for PO and ONS intakes
[2019-01-15] MEDS: COREG PO SCH (22:25)
[2019-01-15] MEDS: SODIUM CHLORIDE FLUSH SYRINGE 10 ML IV PRN (22:26)
[2019-01-16] MEDS: DUONEB *Not for PRN Use IH SCH ×4 (02:52→20:01)
[2019-01-16] MEDS: SODIUM CHLORIDE FLUSH SYRINGE 10 ML IV PRN (06:06)
[2019-01-16] MEDS: SOLU-Medrol IV SCH ×3 (06:06→22:50)
[2019-01-16 06:34] LABS: Hematocrit 32.5 % (30.3-42.9); Hemoglobin 10.2 gm/dl (10.1-14.3); Mean Corpuscular HGB Conc 31 % (30-34); Mean Corpuscular Hemoglobin 27 pg (28-32); Mean Corpuscular Volume 86 fl (79-97); Platelet Count 233 K/mm3 (140-440); Red Blood Count 3.78 M/mm3 (3.65-5.03); Red Cell Distribution Width 15.3 % (13.2-15.2)
[2019-01-16 07:17] LABS: BUN/Creatinine Ratio 31; Blood Urea Nitrogen 25 mg/dL (7-17); Calcium 9.6 mg/dL (8.4-10.2); Hemolysis Index 3
[2019-01-16] MEDS: HumaLOG SUB-Q SCH ×2 (07:45→22:48)
[2019-01-16] MEDS: PULMICORT IH SCH ×2 (08:19→20:01)
[2019-01-16 08:54] LABS: Basophils % (Manual) 0 % (0.0-1.8); Eosinophils % (Manual) 0 % (0.0-4.3); Total Cells Counted 100
[2019-01-16 08:55] LABS: Anisocytosis Few; Large Platelets 1+; Platelet Estimate Consistent w Auto; Target Cells 1+
[2019-01-16] MEDS: COLACE PO SCH ×2 (09:34→22:48)
[2019-01-16] MEDS: MUCINEX ER PO SCH ×2 (09:34→22:48)
[2019-01-16] MEDS: IMDUR PO SCH (09:34)
[2019-01-16] MEDS: PLAVIX PO SCH (09:34)
[2019-01-16] MEDS: COREG PO SCH ×2 (09:35→22:49)
[2019-01-16] MEDS ORDERED: BABY ASPIRIN PO SCH (10:00)
[2019-01-16] MEDS: SODIUM CHLORIDE FLUSH SYRINGE 10 ML IV SCH ×2 (10:45→22:50)
--- NOTE | 2019-01-16 11:09 | Progress Note ---
Assessment and Plan COPD exacerbation STEMI A cardiac catheterization showed no significant coronary stenosis. The LAD and its diagonal system were tortuous, but free of significant disease. Ejection fraction 50-55%. Hyperkalemia Prior GI bleed Continue medical management to include oral antiplatelets and long-acting oral nitrates for possible transient coronary spasm. Subjective Date of service: 01/16/19 Interval history: Patient has no complaints. She denies chest pain. Objective Vital Signs Temp Pulse Pulse Pulse Resp Resp Resp 01/16/19 09:35 88 01/16/19 09:34 88 01/16/19 07:35 98.4 F 81 16 01/16/19 04:37 98.0 F 81 18 01/16/19 03:03 95 H 18 01/15/19 23:54 98.0 F 90 18 01/15/19 22:25 110 H 01/15/19 20:30 110 H 18 01/15/19 20:10 01/15/19 20:00 110 H 01/15/19 19:15 98.0 F 106 H 18 01/15/19 15:46 98.1 F 95 H 18 01/15/19 15:01 96 H 19 01/15/19 14:51 90 19 01/15/19 14:41 93 H 22 01/15/19 14:31 101 H 23 01/15/19 14:21 100 H 18 01/15/19 14:11 98 H 26 H 01/15/19 14:00 109 H 30 H 01/15/19 13:51 110 H 23 01/15/19 13:41 97 H 24 01/15/19 13:31 96 H 25 H 01/15/19 13:30 97 H 96 H 16 16 01/15/19 13:21 96 H 23 01/15/19 13:11 96 H 15 01/15/19 13:01 88 25 H 01/15/19 12:51 81 22 01/15/19 12:41 83 27 H 01/15/19 12:31 90 26 H 01/15/19 12:21 80 24 01/15/19 12:11 87 22 01/15/19 12:00 85 27 H 01/15/19 11:51 84 22 01/15/19 11:41 87 23 01/15/19 11:31 88 22 01/15/19 11:30 98.2 F 01/15/19 11:21 80 24 01/15/19 11:11 82 23 BP Pulse Ox 01/16/19 09:35 155/75 01/16/19 09:34 155/75 01/16/19 07:35 142/76 91 01/16/19 04:37 130/74 93 01/16/19 03:03 01/15/19 23:54 134/71 93 01/15/19 22:25 137/59 01/15/19 20:30 01/15/19 20:10 95 01/15/19 20:00 01/15/19 19:15 137/59 91 01/15/19 15:46 155/77 94 01/15/19 15:01 160/79 86 01/15/19 14:51 160/79 88 01/15/19 14:41 160/79 85 01/15/19 14:31 160/79 90 01/15/19 14:21 160/79 87 01/15/19 14:11 160/79 90 01/15/19 14:00 160/79 88 01/15/19 13:51 144/72 92 01/15/19 13:41 144/72 91 01/15/19 13:31 144/72 77 L 01/15/19 13:30 01/15/19 13:21 144/72 96 01/15/19 13:11 144/72 97 01/15/19 13:01 144/72 98 01/15/19 12:51 144/72 91 01/15/19 12:41 144/72 90 01/15/19 12:31 144/72 89 01/15/19 12:21 144/72 94 01/15/19 12:11 144/72 94 01/15/19 12:00 144/72 94 01/15/19 11:51 157/73 94 01/15/19 11:41 157/73 96 01/15/19 11:31 157/73 92 01/15/19 11:30 01/15/19 11:21 157/73 95 01/15/19 11:11 157/73 97 - Physical Examination General: No Apparent Distress HEENT: Positive: PERRL Neck: Positive: neck supple Cardiac: Positive: Reg Rate and Rhythm Lungs: Positive: Decreased Breath Sounds, Wheezes Neuro: Positive: Grossly Intact Abdomen: Positive: Soft Extremities: Absent: edema - Labs and Meds CBC 01/16/19 Range/Units 05:50 WBC 12.2 H (4.5-11.0) K/mm3 RBC 3.78 (3.65-5.03) M/mm3 Hgb 10.2 (10.1-14.3) gm/dl Hct 32.5 (30.3-42.9) % Plt Count 233 (140-440) K/mm3 Comprehensive Metabolic Panel 01/16/19 Range/Units 05:50 Sodium 141 (137-145) mmol/L Potassium 5.0 (3.6-5.0) mmol/L Chloride 98.3 (98-107) mmol/L Carbon Dioxide 34 H D (22-30) mmol/L BUN 25 H (7-17) mg/dL Creatinine 0.8 (0.7-1.2) mg/dL Glucose 138 H (65-100) mg/dL Calcium 9.6 (8.4-10.2) mg/dL
--- NOTE | 2019-01-16 12:22 | Progress Note ---
Assessment and Plan Assessment and plan: 71-year-old -[place] female with history of diabetes, asthma/ COPD, diverticulitis, ovarian cancer s/p hysterectomy who presents to [facility] ED with complaints of difficulty in breathing. Leukocytosis 12.5, hyperkalemia 6.1. Troponin elevated 2 with upward trend. Initial EKG showed sinus rhythm with prolonged QT interval, repeat EKG showed anterior STEMI. Code STEMI protocol was initiated and cardiology (Dr. Pedro) was notified. S/P cath --STEMI; cardiology evaluated the patient s/p heart catheterization;no significant coronary stenosis. The LAD and its diagonal system were tortuous, but free of significant disease. Ejection fraction 50-55%. Possible coronary spasm Antiplatelets ,nitrates, supportive care,cardiology following --Hyperkalemia; corrected --Exacerbation of COPD; oxygen, nebulizers, steroids and supportive care --Acute hypoxic respiratory failure; secondary to COPD exacerbation Continue nebulizers oxygen, evaluate for home oxygen at discharge Bipap at night. --DVT prophylaxis; Lovenox Monitor closely and adjust management as needed PT evaln and treatment possible DC in 1-2 days if stable - History Interval history: Patient seen and examined Patient feels slightly better, mild shortness of breath On bipap at nights Vital signs reviewed Hospitalist Physical - Constitutional Vitals: Temp Pulse Resp BP Pulse Ox 98.4 F 88 20 135/76 95 01/16/19 07:35 01/16/19 09:35 01/16/19 08:19 01/16/19 12:06 01/16/19 08:19 General appearance: Present: no acute distress, well-nourished - EENT Eyes: Present: PERRL, EOM intact - Neck Neck: Present: supple, normal ROM - Respiratory Respiratory effort: normal Respiratory: bilateral: diminished, wheezing, negative: rales, rhonchi - Cardiovascular Rhythm: regular Heart Sounds: Present: S1 & S2 - Extremities Extremities: no ischemia, No edema - Abdominal General gastrointestinal: soft, non-tender, non-distended, normal bowel sounds - Integumentary Integumentary: Present: clear, warm - Psychiatric Psychiatric: appropriate mood/affect, cooperative - Neurologic Neurologic: CNII-XII intact, moves all extremities Results - Labs CBC & Chem 7: 01/17/19 04:57 01/17/19 09:52 Labs: Laboratory Last Values WBC 12.2 K/mm3 (4.5-11.0) H 01/16/19 05:50 RBC 3.78 M/mm3 (3.65-5.03) 01/16/19 05:50 Hgb 10.2 gm/dl (10.1-14.3) 01/16/19 05:50 Hct 32.5 % (30.3-42.9) 01/16/19 05:50 MCV 86 fl (79-97) 01/16/19 05:50 MCH 27 pg (28-32) L 01/16/19 05:50 MCHC 31 % (30-34) 01/16/19 05:50 RDW 15.3 % (13.2-15.2) H 01/16/19 05:50 Plt Count 233 K/mm3 (140-440) 01/16/19 05:50 Add Manual Diff Complete 01/16/19 05:50 Total Counted 100 01/16/19 05:50 Seg Neutrophils % Outboard Motor Mechanic 01/16/19 05:50 Seg Neuts % (Manual) 95.0 % (40.0-70.0) H 01/16/19 05:50 0 % 01/16/19 05:50 3.0 % (13.4-35.0) L 01/16/19 05:50 Reactive Lymphs % (Man) 0 % 01/16/19 05:50 2.0 % (0.0-7.3) 01/16/19 05:50 0 % (0.0-4.3) 01/16/19 05:50 0 % (0.0-1.8) 01/16/19 05:50 0 % 01/16/19 05:50 0 % 01/16/19 05:50 0 % 01/16/19 05:50 0 % 01/16/19 05:50 Nucleated RBC % Not Reportable 01/16/19 05:50 Seg Neutrophils # Man 11.6 K/mm3 (1.8-7.7) H 01/16/19 05:50 Band Neutrophils # 0.0 K/mm3 01/16/19 05:50 0.4 K/mm3 (1.2-5.4) L 01/16/19 05:50 Abs React Lymphs (Man) 0.0 K/mm3 01/16/19 05:50 0.2 K/mm3 (0.0-0.8) 01/16/19 05:50 0.0 K/mm3 (0.0-0.4) 01/16/19 05:50 0.0 K/mm3 (0.0-0.1) 01/16/19 05:50 0.0 K/mm3 01/16/19 05:50 0.0 K/mm3 01/16/19 05:50 0.0 K/mm3 01/16/19 05:50 Blast Cells # 0.0 K/mm3 01/16/19 05:50 WBC Morphology Not Reportable 01/16/19 05:50 Hypersegmented Neuts Not Reportable 01/16/19 05:50 Hyposegmented Neuts Not Reportable 01/16/19 05:50 Hypogranular Neuts Not Reportable 01/16/19 05:50 Not Reportable 01/16/19 05:50 Not Reportable 01/16/19 05:50 Not Reportable 01/16/19 05:50 Not Reportable 01/16/19 05:50 Not Reportable 01/16/19 05:50 Not Reportable 01/16/19 05:50 Consistent w auto 01/16/19 05:50 Not Reportable 01/16/19 05:50 Plt Clumps, EDTA Not Reportable 01/16/19 05:50 1+ 01/16/19 05:50 Not Reportable 01/16/19 05:50 Not Reportable 01/16/19 05:50 Plt Morphology Comment Not Reportable 01/16/19 05:50 RBC Morphology Not Reportable 01/16/19 05:50 Dimorphic RBCs Not Reportable 01/16/19 05:50 Rare 01/16/19 05:50 Not Reportable 01/16/19 05:50 Not Reportable 01/16/19 05:50 Few 01/16/19 05:50 Not Reportable 01/16/19 05:50 Not Reportable 01/16/19 05:50 Not Reportable 01/16/19 05:50 Not Reportable 01/16/19 05:50 Not Reportable 01/16/19 05:50 1+ 01/16/19 05:50 Not Reportable 01/16/19 05:50 Not Reportable 01/16/19 05:50 Not Reportable 01/16/19 05:50 Not Reportable 01/16/19 05:50 Not Reportable 01/16/19 05:50 Not Reportable 01/16/19 05:50 Not Reportable 01/16/19 05:50 Not Reportable 01/16/19 05:50 Not Reportable 01/16/19 05:50 Acanthocytes (Spur) Not Reportable 01/16/19 05:50 Rouleaux Not Reportable 01/16/19 05:50 Not Reportable 01/16/19 05:50 Not Reportable 01/16/19 05:50 Not Reportable 01/16/19 05:50 Not Reportable 01/16/19 05:50 Hem Pathologist Commnt No 01/16/19 05:50 PT 14.5 Sec. (12.2-14.9) 01/15/19 01:28 INR 1.16 (0.87-1.13) H 01/15/19 01:28 APTT 26.1 Sec. (24.2-36.6) 01/15/19 01:28 381.33 ng/mlDDU (0-234) H 01/15/19 07:59 Heparin Anti-Xa Level 0.34 U.I./ml (0.3-0.7) 01/16/19 07:24 POC ABG pH 7.353 (7.35-7.45) 01/15/19 06:29 POC ABG pCO2 54.8 (35-45) H 01/15/19 06:29 POC ABG pO2 84 (80-105) 01/15/19 06:29 POC ABG HCO3 30.5 (22-26 mml/L) 01/15/19 06:29 POC ABG Total CO2 32 (23-27mmol/L) 01/15/19 06:29 POC ABG O2 Sat 96 01/15/19 06:29 POC ABG Base Excess 5 ((-2) - (+3)mmol/L) 01/15/19 06:29 40 % 01/15/19 06:29 Sodium 141 mmol/L (137-145) 01/16/19 05:50 Potassium 5.0 mmol/L (3.6-5.0) 01/16/19 05:50 Chloride 98.3 mmol/L (98-107) 01/16/19 05:50 Carbon Dioxide 34 mmol/L (22-30) H D 01/16/19 05:50 14 mmol/L 01/16/19 05:50 BUN 25 mg/dL (7-17) H 01/16/19 05:50 0.8 mg/dL (0.7-1.2) 01/16/19 05:50 Estimated GFR > 60 ml/min 01/16/19 05:50 31 % 01/16/19 05:50 Glucose 138 mg/dL (65-100) H 01/16/19 05:50 POC Glucose 145 (70-105) H 01/16/19 08:12 4.8 % (4-6) 01/15/19 02:04 Calcium 9.6 mg/dL (8.4-10.2) 01/16/19 05:50 0.60 mg/dL (0.1-1.2) 01/14/19 22:24 0.2 mg/dL (0-0.2) 01/14/19 22:24 0.4 mg/dL 01/14/19 22:24 AST 52 units/L (5-40) H 01/14/19 22:24 ALT 62 units/L (7-56) H 01/14/19 22:24 113 units/L (35-129) 01/14/19 22:24 0.255 ng/mL (0.00-0.029) H* 01/14/19 22:52 NT-Pro-B Natriuret Pep 8638 pg/mL (0-900) H 01/14/19 22:24 8.1 g/dL (6.3-8.2) 01/14/19 22:24 4.5 g/dL (3.9-5) 01/14/19 22:24 1.3 % 01/14/19 22:24 Triglycerides 53 mg/dL (2-149) 01/14/19 21:09 Cholesterol 129 mg/dL (50-199) 01/14/19 21:09 56 mg/dL (50-130) 01/14/19 21:09 73 mg/dL (40-59) H 01/14/19 21:09 1.76 % 01/14/19 21:09 Straw (Yellow) 01/15/19 12:52 Clear (Clear) 01/15/19 12:52 5.0 (5.0-7.0) 01/15/19 12:52 Ur Specific [place] 1.024 (1.003-1.030) 01/15/19 12:52 <15 mg/dl mg/dL (Negative) 01/15/19 12:52 Neg mg/dL (Negative) 01/15/19 12:52 Neg mg/dL (Negative) 01/15/19 12:52 Sm (Negative) 01/15/19 12:52 Neg (Negative) 01/15/19 12:52 Neg (Negative) 01/15/19 12:52 < 2.0 mg/dL (<2.0) 01/15/19 12:52 Ur Leukocyte Esterase Neg (Negative) 01/15/19 12:52 < 1.0 /HPF (0.0-6.0) 01/15/19 12:52 1.0 /HPF (0.0-6.0) 01/15/19 12:52 U Epithel Cells (Auto) < 1.0 /HPF (0-13.0) 01/15/19 12:52 1+ /HPF (Negative) 01/15/19 12:52 Few /HPF 01/15/19 12:52 Active Medications - Current Medications Current Medications: Generic Name Dose Route Start Last Admin Trade Name Freq PRN Reason Stop Dose Admin Acetaminophen 650 mg 01/15/19 00:51 Tylenol PO Q4H PRN Pain MILD(1-3)/Fever >100.5/GOVEA Albuterol 2.5 mg 01/15/19 00:51 Proventil IH Q3HRT PRN Shortness Of Breath Albuterol/Ipratropium 1 ampul 01/15/19 02:00 01/16/19 08:19 Duoneb *Not For Prn Use* IH 1 ampul Q6HRT DONNA Administration Atorvastatin Calcium 40 mg 01/15/19 22:00 01/15/19 22:25 Lipitor PO 40 mg QHS DONNA Administration Budesonide 0.5 mg 01/15/19 08:00 01/16/19 08:19 Pulmicort IH 0.5 mg Q12HRT DONNA Administration Carvedilol 3.125 mg 01/15/19 22:00 01/16/19 09:35 Coreg PO 3.125 mg BID DONNA Administration Clopidogrel Bisulfate 75 mg 01/15/19 10:00 01/16/19 09:34 Plavix PO 75 mg QDAY DONNA Administration Dextrose 50 ml 01/15/19 00:51 D50w (25gm) Syringe IV PRN PRN Hypoglycemia Docusate Sodium 100 mg 01/15/19 10:00 01/16/19 09:34 Colace PO 100 mg BID DONNA Administration Guaifenesin 600 mg 01/15/19 10:00 01/16/19 09:34 Mucinex Er PO 600 mg BID DONNA Administration Insulin Human Lispro 0 unit 01/15/19 07:30 01/16/19 07:45 Humalog SUB-Q Not Given ACHS [facility] Protocol Isosorbide Mononitrate 30 mg 01/15/19 10:00 01/16/19 09:34 Imdur PO 30 mg QDAY DONNA Administration Methylprednisolone Sodium Succinate 80 mg 01/15/19 06:00 01/16/19 06:06 Solu-Medrol IV 80 mg Q8HR DONNA Administration Nitroglycerin 0.4 mg 01/15/19 01:35 Nitrostat SL .Q5MIN PRN Chest Pain Ondansetron HCl 4 mg 01/15/19 00:51 Zofran IV Q8H PRN Nausea And Vomiting Oxycodone/Acetaminophen 1 tab 01/15/19 00:51 01/15/19 18:40 Percocet 5/325 PO 1 tab Q6H PRN Administration Pain, Moderate (4-6) Sodium Chloride 10 ml 01/15/19 10:00 01/15/19 22:26 Sodium Chloride Flush Syringe 10 Ml IV 10 ml BID DONNA Administration Sodium Chloride 10 ml 01/15/19 00:51 01/16/19 06:06 Sodium Chloride Flush Syringe 10 Ml IV 10 ml PRN PRN Administration LINE FLUSH Nutrition/Malnutrition Assess - Dietary Evaluation Nutrition/Malnutrition Findings: Nutrition Notes Start: 01/15/19 15:42 Freq: Status: Active Protocol: Document 01/15/19 15:42 RM (Rec: 01/15/19 15:52 RM [email or web address]) Nutrition Notes Need for Assessment generated from: MST Initial or Follow up Assessment Current Diagnosis COPD,Diabetes Other Pertinent Diagnosis Diverticulitis, Hx ovarian CA Current Diet Cardiac Labs/Tests Reviewed Pertinent Medications Solu-Medrol Height 5 ft 3 in Weight 54.2 kg Usual Body Weight 72.73 kg Dike Body Weight (kg) 52.27 BMI 21.2 Weight change and time frame 25.5% wt loss X 3 years Subjective/Other Information Screened for malnutrition. 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 Stated that she was mostly consuming fluids but also ate a small breakfast and dinner. Stated sometimes she drank a Glucerna for lunch . Stated that her appetite is poor here and that she has only been consuming liquids. Stated UBW was 160 lbs in October 2015. No temporal or orbital wasting . Burn Absent Trauma Absent #1 Nutrition Diagnosis Inadequate oral intake Etiology decreased ability to taste and smell foods As Evidenced by Signs and Symptoms pt statement that she has only been consuming liquids Is patient on ventilator? No Is Patient Ambulatory and/or Out of Bed Yes REE-([facility]-ambulatory/OOB) [ 1294.969 [id number]] Calculation Used for Recommendations [facility] Additional Notes Protein Needs: 54-65g (1-1.2g/ kg) Fluid Needs: 1 ml/kcal Nutrition Intervention Change Diet Order: Consistent CHO Add Supplement/Snack (indicate name/kcal Glucerna BID /protein ) Provides kCal: 440 Provides Protein (gm) 20 Goal #1 Meet at least 75% of calorie and protein needs via PO and ONS intakes Anticipated Discharge Needs: Consistent CHO diet Follow-Up By: 01/19/19 Additional Comments Follow for PO and ONS intakes
--- NOTE | 2019-01-16 14:43 | Progress Note ---
Assessment and Plan 78 y/o female with acute respiratory failure, thought secondary to sTEMI, found to have clean arteries, and elevated BNP with possible volume overload. 1. Agree with current steroid dosing and BID pulmicort along with scheduled duonebs. 2. Will not rule out PE just yet. patient did not have appropriate therapy last night and did not get any other diuretic therapy today. Ordered lasix now and have started her on BID therapy. BNP was >8k 3. BP control 4. Bipap will be ordered qhs and will discuss with RT to take time with patie nt. She will wear it if she understands why it needs to be placed. Subjective Date of service: 01/16/19 Interval history: No acute events overnight. Per report, patient refused bipap as it was stated that she is having a panic attack. The RT did not follow up. Her sister is at the bedside, concerned because she is back on the bipap. Vitals stable. Objective Vital Signs - 12hr 01/16/19 01/16/19 01/16/19 03:03 04:37 07:35 Temperature 98.0 F 98.4 F Pulse Rate 81 81 Pulse Rate [ 95 H Anterior Bilateral] Respiratory 18 16 Rate Respiratory 18 Rate [Anterior Bilateral] Blood Pressure 130/74 142/76 O2 Sat by Pulse 93 91 Oximetry 01/16/19 01/16/19 01/16/19 08:19 09:34 09:35 Temperature Pulse Rate 88 88 Pulse Rate [ 84 Anterior Bilateral] Respiratory Rate Respiratory 20 Rate [Anterior Bilateral] Blood Pressure 155/75 155/75 O2 Sat by Pulse 95 Oximetry 01/16/19 01/16/19 01/16/19 12:00 12:06 13:07 Temperature Pulse Rate 88 Pulse Rate [ 90 Anterior Bilateral] Respiratory 24 Rate Respiratory 20 Rate [Anterior Bilateral] Blood Pressure 135/76 O2 Sat by Pulse 93 Oximetry Constitutional: no acute distress, alert Eyes: non-icteric ENT: other (Full face mask bipap on) Neck: supple Ascultation: Bilateral: rales Percussion: Bilateral: not dull Cardiovascular: regular rate and rhythm Gastrointestinal: normoactive bowel sounds, soft Extremities: no edema Neurologic: normal mental status, non-focal exam CBC and BMP: 01/16/19 05:50 01/16/19 05:50 ABG, PT/INR, D-dimer: ABG POC ABG pH 7.353 (7.35-7.45) 01/15/19 06:29 POC ABG pCO2 54.8 (35-45) H 01/15/19 06:29 POC ABG pO2 84 (80-105) 01/15/19 06:29 POC ABG HCO3 30.5 (22-26 mml/L) 01/15/19 06:29 POC ABG Total CO2 32 (23-27mmol/L) 01/15/19 06:29 POC ABG O2 Sat 96 01/15/19 06:29 PT/INR, D-dimer PT 14.5 Sec. (12.2-14.9) 01/15/19 01:28 INR 1.16 (0.87-1.13) H 01/15/19 01:28 381.33 ng/mlDDU (0-234) H 01/15/19 07:59 Abnormal lab findings: Abnormal Labs 01/14/19 01/14/19 01/14/19 21:09 21:09 21:09 WBC 12.5 H MCH 27 L RDW 16.0 H Seg Neuts % (Manual) 86.0 H Lymphocytes % (Manual) 4.0 L Monocytes % (Manual) 10.0 H Seg Neutrophils # Man 10.8 H Lymphocytes # (Manual) 0.5 L Monocytes # (Manual) 1.3 H INR D-Dimer Heparin Anti-Xa Level POC ABG pH POC ABG pCO2 POC ABG pO2 Sodium Potassium 6.2 H* Carbon Dioxide BUN 23 H Glucose 227 H POC Glucose AST 51 H ALT 61 H Troponin T 0.224 H* NT-Pro-B Natriuret Pep HDL Cholesterol 73 H 01/14/19 01/14/19 01/15/19 22:24 22:52 00:35 WBC MCH RDW Seg Neuts % (Manual) Lymphocytes % (Manual) Monocytes % (Manual) Seg Neutrophils # Man Lymphocytes # (Manual) Monocytes # (Manual) INR D-Dimer Heparin Anti-Xa Level POC ABG pH 7.296 L POC ABG pCO2 64.0 H POC ABG pO2 65 L Sodium 146 H Potassium 6.1 H* Carbon Dioxide BUN 23 H Glucose 221 H POC Glucose AST 52 H ALT 62 H Troponin T 0.255 H* NT-Pro-B Natriuret Pep 8638 H HDL Cholesterol 01/15/19 01/15/19 01/15/19 01:20 01:28 03:45 WBC MCH RDW Seg Neuts % (Manual) Lymphocytes % (Manual) Monocytes % (Manual) Seg Neutrophils # Man Lymphocytes # (Manual) Monocytes # (Manual) INR 1.16 H D-Dimer Heparin Anti-Xa Level POC ABG pH POC ABG pCO2 POC ABG pO2 Sodium Potassium Carbon Dioxide BUN Glucose POC Glucose 173 H 159 H AST ALT Troponin T NT-Pro-B Natriuret Pep HDL Cholesterol 01/15/19 01/15/19 01/15/19 04:27 06:29 07:46 WBC MCH RDW Seg Neuts % (Manual) Lymphocytes % (Manual) Monocytes % (Manual) Seg Neutrophils # Man Lymphocytes # (Manual) Monocytes # (Manual) INR D-Dimer Heparin Anti-Xa Level POC ABG pH 7.282 L POC ABG pCO2 66.5 H 54.8 H POC ABG pO2 65 L Sodium Potassium Carbon Dioxide BUN Glucose POC Glucose 180 H AST ALT Troponin T NT-Pro-B Natriuret Pep HDL Cholesterol 01/15/19 01/15/19 01/15/19 07:59 07:59 11:38 WBC MCH RDW Seg Neuts % (Manual) Lymphocytes % (Manual) Monocytes % (Manual) Seg Neutrophils # Man Lymphocytes # (Manual) Monocytes # (Manual) INR D-Dimer 381.33 H Heparin Anti-Xa Level < 0.10 L POC ABG pH POC ABG pCO2 POC ABG pO2 Sodium Potassium Carbon Dioxide BUN Glucose POC Glucose 181 H AST ALT Troponin T NT-Pro-B Natriuret Pep HDL Cholesterol 01/15/19 01/15/19 01/16/19 17:16 21:43 05:50 WBC 12.2 H MCH 27 L RDW 15.3 H Seg Neuts % (Manual) 95.0 H Lymphocytes % (Manual) 3.0 L Monocytes % (Manual) Seg Neutrophils # Man 11.6 H Lymphocytes # (Manual) 0.4 L Monocytes # (Manual) INR D-Dimer Heparin Anti-Xa Level POC ABG pH POC ABG pCO2 POC ABG pO2 Sodium Potassium Carbon Dioxide BUN Glucose POC Glucose 131 H 141 H AST ALT Troponin T NT-Pro-B Natriuret Pep HDL Cholesterol 01/16/19 01/16/19 05:50 08:12 WBC MCH RDW Seg Neuts % (Manual) Lymphocytes % (Manual) Monocytes % (Manual) Seg Neutrophils # Man Lymphocytes # (Manual) Monocytes # (Manual) INR D-Dimer Heparin Anti-Xa Level POC ABG pH POC ABG pCO2 POC ABG pO2 Sodium Potassium Carbon Dioxide 34 H D BUN 25 H Glucose 138 H POC Glucose 145 H AST ALT Troponin T NT-Pro-B Natriuret Pep HDL Cholesterol
[2019-01-16] MEDS ORDERED: LASIX IV ONE (15:00)
[2019-01-17] MEDS: DUONEB *Not for PRN Use IH SCH ×4 (02:56→20:23)
[2019-01-17] MEDS: LASIX IV SCH ×2 (05:24→18:15)
[2019-01-17] MEDS: SODIUM CHLORIDE FLUSH SYRINGE 10 ML IV PRN (05:25)
[2019-01-17 05:49] LABS: Hematocrit 33.6 % (30.3-42.9); Hemoglobin 10.8 gm/dl (10.1-14.3)
[2019-01-17] MEDS: SOLU-Medrol IV SCH ×4 (06:00→21:40)
[2019-01-17 10:24] LABS: BUN/Creatinine Ratio 36; Blood Urea Nitrogen 32 mg/dL (7-17); Calcium 10.2 mg/dL (8.4-10.2); Hemolysis Index 3
[2019-01-17] MEDS: COLACE PO SCH ×2 (11:14→21:40)
[2019-01-17] MEDS: PLAVIX PO SCH (11:14)
[2019-01-17] MEDS: COREG PO SCH ×2 (11:14→21:40)
[2019-01-17] MEDS: IMDUR PO SCH (11:15)
[2019-01-17] MEDS: MUCINEX ER PO SCH ×2 (11:15→21:40)
--- NOTE | 2019-01-17 11:16 | Progress Note ---
Assessment and Plan 78 y/o female with acute respiratory failure, thought secondary to sTEMI, found to have clean arteries, and elevated BNP with possible volume overload. 1. Decrease steroid to 40q8 2. Continue BID lasix therapy. Potassium is stable. 3. BP control 4. Bipap will be ordered qhs and will discuss with RT to take time with patient. She will wear it if she understands why it needs to be placed. Subjective Date of service: 01/17/19 Interval history: No acute events. Wore bipap last night. WOB much easier. Patient has lots of questions about last hospital admit. Objective Vital Signs - 12hr 01/16/19 01/16/19 01/17/19 23:30 23:46 00:58 Temperature 97.5 F L Pulse Rate 64 79 79 Pulse Rate [ Anterior Bilateral] Respiratory 18 24 Rate Respiratory Rate [Anterior Bilateral] Blood Pressure Blood Pressure 117/65 [Left] O2 Sat by Pulse 100 94 Oximetry 01/17/19 01/17/19 01/17/19 02:56 03:13 04:21 Temperature 97.5 F L Pulse Rate 78 74 Pulse Rate [ 81 Anterior Bilateral] Respiratory 24 20 Rate Respiratory 24 Rate [Anterior Bilateral] Blood Pressure 142/77 Blood Pressure [Left] O2 Sat by Pulse 95 92 Oximetry Constitutional: no acute distress, alert Eyes: non-icteric ENT: other (Full face mask bipap on) Neck: supple Ascultation: Bilateral: rales Percussion: Bilateral: not dull Cardiovascular: regular rate and rhythm Gastrointestinal: normoactive bowel sounds, soft Extremities: no edema Neurologic: normal mental status, non-focal exam CBC and BMP: 01/17/19 04:57 01/17/19 09:52 ABG, PT/INR, D-dimer: ABG POC ABG pH 7.353 (7.35-7.45) 01/15/19 06:29 POC ABG pCO2 54.8 (35-45) H 01/15/19 06:29 POC ABG pO2 84 (80-105) 01/15/19 06:29 POC ABG HCO3 30.5 (22-26 mml/L) 01/15/19 06:29 POC ABG Total CO2 32 (23-27mmol/L) 01/15/19 06:29 POC ABG O2 Sat 96 01/15/19 06:29 PT/INR, D-dimer PT 14.5 Sec. (12.2-14.9) 01/15/19 01:28 INR 1.16 (0.87-1.13) H 01/15/19 01:28 381.33 ng/mlDDU (0-234) H 01/15/19 07:59 Abnormal lab findings: Abnormal Labs 01/14/19 01/14/19 01/14/19 21:09 21:09 21:09 WBC 12.5 H MCH 27 L RDW 16.0 H Seg Neuts % (Manual) 86.0 H Lymphocytes % (Manual) 4.0 L Monocytes % (Manual) 10.0 H Seg Neutrophils # Man 10.8 H Lymphocytes # (Manual) 0.5 L Monocytes # (Manual) 1.3 H INR D-Dimer Heparin Anti-Xa Level POC ABG pH POC ABG pCO2 POC ABG pO2 Sodium Potassium 6.2 H* Chloride Carbon Dioxide BUN 23 H Glucose 227 H POC Glucose AST 51 H ALT 61 H Troponin T 0.224 H* NT-Pro-B Natriuret Pep HDL Cholesterol 73 H 01/14/19 01/14/19 01/15/19 22:24 22:52 00:35 WBC MCH RDW Seg Neuts % (Manual) Lymphocytes % (Manual) Monocytes % (Manual) Seg Neutrophils # Man Lymphocytes # (Manual) Monocytes # (Manual) INR D-Dimer Heparin Anti-Xa Level POC ABG pH 7.296 L POC ABG pCO2 64.0 H POC ABG pO2 65 L Sodium 146 H Potassium 6.1 H* Chloride Carbon Dioxide BUN 23 H Glucose 221 H POC Glucose AST 52 H ALT 62 H Troponin T 0.255 H* NT-Pro-B Natriuret Pep 8638 H HDL Cholesterol 01/15/19 01/15/19 01/15/19 01:20 01:28 03:45 WBC MCH RDW Seg Neuts % (Manual) Lymphocytes % (Manual) Monocytes % (Manual) Seg Neutrophils # Man Lymphocytes # (Manual) Monocytes # (Manual) INR 1.16 H D-Dimer Heparin Anti-Xa Level POC ABG pH POC ABG pCO2 POC ABG pO2 Sodium Potassium Chloride Carbon Dioxide BUN Glucose POC Glucose 173 H 159 H AST ALT Troponin T NT-Pro-B Natriuret Pep HDL Cholesterol 01/15/19 01/15/19 01/15/19 04:27 06:29 07:46 WBC MCH RDW Seg Neuts % (Manual) Lymphocytes % (Manual) Monocytes % (Manual) Seg Neutrophils # Man Lymphocytes # (Manual) Monocytes # (Manual) INR D-Dimer Heparin Anti-Xa Level POC ABG pH 7.282 L POC ABG pCO2 66.5 H 54.8 H POC ABG pO2 65 L Sodium Potassium Chloride Carbon Dioxide BUN Glucose POC Glucose 180 H AST ALT Troponin T NT-Pro-B Natriuret Pep HDL Cholesterol 01/15/19 01/15/19 01/15/19 07:59 07:59 11:38 WBC MCH RDW Seg Neuts % (Manual) Lymphocytes % (Manual) Monocytes % (Manual) Seg Neutrophils # Man Lymphocytes # (Manual) Monocytes # (Manual) INR D-Dimer 381.33 H Heparin Anti-Xa Level < 0.10 L POC ABG pH POC ABG pCO2 POC ABG pO2 Sodium Potassium Chloride Carbon Dioxide BUN Glucose POC Glucose 181 H AST ALT Troponin T NT-Pro-B Natriuret Pep HDL Cholesterol 01/15/19 01/15/19 01/16/19 17:16 21:43 05:50 WBC 12.2 H MCH 27 L RDW 15.3 H Seg Neuts % (Manual) 95.0 H Lymphocytes % (Manual) 3.0 L Monocytes % (Manual) Seg Neutrophils # Man 11.6 H Lymphocytes # (Manual) 0.4 L Monocytes # (Manual) INR D-Dimer Heparin Anti-Xa Level POC ABG pH POC ABG pCO2 POC ABG pO2 Sodium Potassium Chloride Carbon Dioxide BUN Glucose POC Glucose 131 H 141 H AST ALT Troponin T NT-Pro-B Natriuret Pep HDL Cholesterol 01/16/19 01/16/19 01/16/19 05:50 08:12 12:23 WBC MCH RDW Seg Neuts % (Manual) Lymphocytes % (Manual) Monocytes % (Manual) Seg Neutrophils # Man Lymphocytes # (Manual) Monocytes # (Manual) INR D-Dimer Heparin Anti-Xa Level POC ABG pH POC ABG pCO2 POC ABG pO2 Sodium Potassium Chloride Carbon Dioxide 34 H D BUN 25 H Glucose 138 H POC Glucose 145 H 162 H AST ALT Troponin T NT-Pro-B Natriuret Pep HDL Cholesterol 01/16/19 01/16/19 01/17/19 16:48 22:24 00:52 WBC MCH RDW Seg Neuts % (Manual) Lymphocytes % (Manual) Monocytes % (Manual) Seg Neutrophils # Man Lymphocytes # (Manual) Monocytes # (Manual) INR D-Dimer Heparin Anti-Xa Level POC ABG pH POC ABG pCO2 POC ABG pO2 Sodium Potassium Chloride Carbon Dioxide BUN Glucose POC Glucose 137 H 147 H 141 H AST ALT Troponin T NT-Pro-B Natriuret Pep HDL Cholesterol 01/17/19 01/17/19 01/17/19 08:38 09:25 09:52 WBC MCH RDW Seg Neuts % (Manual) Lymphocytes % (Manual) Monocytes % (Manual) Seg Neutrophils # Man Lymphocytes # (Manual) Monocytes # (Manual) INR D-Dimer Heparin Anti-Xa Level 0.10 L POC ABG pH POC ABG pCO2 POC ABG pO2 Sodium Potassium Chloride 93.0 L Carbon Dioxide 39 H BUN 32 H Glucose 181 H POC Glucose 163 H AST ALT Troponin T NT-Pro-B Natriuret Pep HDL Cholesterol
[2019-01-17] MEDS: SODIUM CHLORIDE FLUSH SYRINGE 10 ML IV SCH ×2 (11:18→21:42)
--- NOTE | 2019-01-17 11:22 | Progress Note ---
Assessment and Plan Assessment and plan: 71-year-old -[place] female with history of diabetes, asthma/ COPD, diverticulitis, ovarian cancer s/p hysterectomy who presents to [facility] ED with complaints of difficulty in breathing. Leukocytosis 12.5, hyperkalemia 6.1. Troponin elevated 2 with upward trend. Initial EKG showed sinus rhythm with prolonged QT interval, repeat EKG showed anterior STEMI. Code STEMI protocol was initiated and cardiology (Dr. Pedro) was notified. S/P cath --Acute Exacerbation of COPD; oxygen, nebulizers, tapering doses of steroids and supportive care. Pilm following --Acute hypoxic respiratory failure; secondary to COPD exacerbation Continue nebulizers oxygen, evaluate for home oxygen at discharge Bipap at night. --STEMI; cardiology evaluated the patient s/p heart catheterization;no significant coronary stenosis. The LAD and its diagonal system were tortuous, but free of significant disease. Ejection fraction 50-55%. Possible coronary spasm Antiplatelets ,nitrates, supportive care,cardiology following --Hyperkalemia; corrected --DVT prophylaxis; Lovenox PT evaln and treatment possible DC in 1-2 days if stable Plan of care reviewed with the patient and her nurse History Interval history: Patient seen and examined medical records reviewed Patient feels slightly better than yesterday, still complains of shortness of breath On nasal cannula oxygen, BiPAP as needed Denies chest pain Vital signs reviewed Hospitalist Physical - Constitutional Vitals: Temp Pulse Resp BP Pulse Ox 97.5 F L 85 20 137/71 92 01/17/19 04:21 01/17/19 11:15 01/17/19 04:21 01/17/19 11:15 01/17/19 04:21 General appearance: Present: no acute distress, well-nourished - EENT Eyes: Present: PERRL, EOM intact - Neck Neck: Present: supple, normal ROM - Respiratory Respiratory effort: normal Respiratory: bilateral: diminished, wheezing, negative: rales, rhonchi - Cardiovascular Rhythm: regular Heart Sounds: Present: S1 & S2 - Extremities Extremities: no ischemia, No edema - Abdominal General gastrointestinal: soft, non-tender, non-distended, normal bowel sounds - Integumentary Integumentary: Present: clear, warm - Psychiatric Psychiatric: appropriate mood/affect, cooperative - Neurologic Neurologic: CNII-XII intact, moves all extremities Results - Labs CBC & Chem 7: 01/17/19 04:57 01/17/19 09:52 Labs: Laboratory Last Values WBC 12.2 K/mm3 (4.5-11.0) H 01/16/19 05:50 RBC 3.78 M/mm3 (3.65-5.03) 01/16/19 05:50 Hgb 10.8 gm/dl (10.1-14.3) 01/17/19 04:57 Hct 33.6 % (30.3-42.9) 01/17/19 04:57 MCV 86 fl (79-97) 01/16/19 05:50 MCH 27 pg (28-32) L 01/16/19 05:50 MCHC 31 % (30-34) 01/16/19 05:50 RDW 15.3 % (13.2-15.2) H 01/16/19 05:50 Plt Count 247 K/mm3 (140-440) 01/17/19 04:57 Add Manual Diff Complete 01/16/19 05:50 Total Counted 100 01/16/19 05:50 Seg Neutrophils % Breakdown Person 01/16/19 05:50 Seg Neuts % (Manual) 95.0 % (40.0-70.0) H 01/16/19 05:50 0 % 01/16/19 05:50 3.0 % (13.4-35.0) L 01/16/19 05:50 Reactive Lymphs % (Man) 0 % 01/16/19 05:50 2.0 % (0.0-7.3) 01/16/19 05:50 0 % (0.0-4.3) 01/16/19 05:50 0 % (0.0-1.8) 01/16/19 05:50 0 % 01/16/19 05:50 0 % 01/16/19 05:50 0 % 01/16/19 05:50 0 % 01/16/19 05:50 Nucleated RBC % Not Reportable 01/16/19 05:50 Seg Neutrophils # Man 11.6 K/mm3 (1.8-7.7) H 01/16/19 05:50 Band Neutrophils # 0.0 K/mm3 01/16/19 05:50 0.4 K/mm3 (1.2-5.4) L 01/16/19 05:50 Abs React Lymphs (Man) 0.0 K/mm3 01/16/19 05:50 0.2 K/mm3 (0.0-0.8) 01/16/19 05:50 0.0 K/mm3 (0.0-0.4) 01/16/19 05:50 0.0 K/mm3 (0.0-0.1) 01/16/19 05:50 0.0 K/mm3 01/16/19 05:50 0.0 K/mm3 01/16/19 05:50 0.0 K/mm3 01/16/19 05:50 Blast Cells # 0.0 K/mm3 01/16/19 05:50 WBC Morphology Not Reportable 01/16/19 05:50 Hypersegmented Neuts Not Reportable 01/16/19 05:50 Hyposegmented Neuts Not Reportable 01/16/19 05:50 Hypogranular Neuts Not Reportable 01/16/19 05:50 Not Reportable 01/16/19 05:50 Not Reportable 01/16/19 05:50 Not Reportable 01/16/19 05:50 Not Reportable 01/16/19 05:50 Not Reportable 01/16/19 05:50 Not Reportable 01/16/19 05:50 Consistent w auto 01/16/19 05:50 Not Reportable 01/16/19 05:50 Plt Clumps, EDTA Not Reportable 01/16/19 05:50 1+ 01/16/19 05:50 Not Reportable 01/16/19 05:50 Not Reportable 01/16/19 05:50 Plt Morphology Comment Not Reportable 01/16/19 05:50 RBC Morphology Not Reportable 01/16/19 05:50 Dimorphic RBCs Not Reportable 01/16/19 05:50 Rare 01/16/19 05:50 Not Reportable 01/16/19 05:50 Not Reportable 01/16/19 05:50 Few 01/16/19 05:50 Not Reportable 01/16/19 05:50 Not Reportable 01/16/19 05:50 Not Reportable 01/16/19 05:50 Not Reportable 01/16/19 05:50 Not Reportable 01/16/19 05:50 1+ 01/16/19 05:50 Not Reportable 01/16/19 05:50 Not Reportable 01/16/19 05:50 Not Reportable 01/16/19 05:50 Not Reportable 01/16/19 05:50 Not Reportable 01/16/19 05:50 Not Reportable 01/16/19 05:50 Not Reportable 01/16/19 05:50 Not Reportable 01/16/19 05:50 Not Reportable 01/16/19 05:50 Acanthocytes (Spur) Not Reportable 01/16/19 05:50 Rouleaux Not Reportable 01/16/19 05:50 Not Reportable 01/16/19 05:50 Not Reportable 01/16/19 05:50 Not Reportable 01/16/19 05:50 Not Reportable 01/16/19 05:50 Hem Pathologist Commnt No 01/16/19 05:50 PT 14.5 Sec. (12.2-14.9) 01/15/19 01:28 INR 1.16 (0.87-1.13) H 01/15/19 01:28 APTT 26.1 Sec. (24.2-36.6) 01/15/19 01:28 381.33 ng/mlDDU (0-234) H 01/15/19 07:59 Heparin Anti-Xa Level 0.10 U.I./ml (0.3-0.7) L 01/17/19 08:38 POC ABG pH 7.353 (7.35-7.45) 01/15/19 06:29 POC ABG pCO2 54.8 (35-45) H 01/15/19 06:29 POC ABG pO2 84 (80-105) 01/15/19 06:29 POC ABG HCO3 30.5 (22-26 mml/L) 01/15/19 06:29 POC ABG Total CO2 32 (23-27mmol/L) 01/15/19 06:29 POC ABG O2 Sat 96 01/15/19 06:29 POC ABG Base Excess 5 ((-2) - (+3)mmol/L) 01/15/19 06:29 40 % 01/15/19 06:29 Sodium 145 mmol/L (137-145) 01/17/19 09:52 Potassium 4.9 mmol/L (3.6-5.0) 01/17/19 09:52 Chloride 93.0 mmol/L (98-107) L 01/17/19 09:52 Carbon Dioxide 39 mmol/L (22-30) H 01/17/19 09:52 18 mmol/L 01/17/19 09:52 BUN 32 mg/dL (7-17) H 01/17/19 09:52 0.9 mg/dL (0.7-1.2) 01/17/19 09:52 Estimated GFR > 60 ml/min 01/17/19 09:52 36 % 01/17/19 09:52 Glucose 181 mg/dL (65-100) H 01/17/19 09:52 POC Glucose 163 (70-105) H 01/17/19 09:25 4.8 % (4-6) 01/15/19 02:04 Calcium 10.2 mg/dL (8.4-10.2) 01/17/19 09:52 0.60 mg/dL (0.1-1.2) 01/14/19 22:24 0.2 mg/dL (0-0.2) 01/14/19 22:24 0.4 mg/dL 01/14/19 22:24 AST 52 units/L (5-40) H 01/14/19 22:24 ALT 62 units/L (7-56) H 01/14/19 22:24 113 units/L (35-129) 01/14/19 22:24 0.255 ng/mL (0.00-0.029) H* 01/14/19 22:52 NT-Pro-B Natriuret Pep 8638 pg/mL (0-900) H 01/14/19 22:24 8.1 g/dL (6.3-8.2) 01/14/19 22:24 4.5 g/dL (3.9-5) 01/14/19 22:24 1.3 % 01/14/19 22:24 Triglycerides 53 mg/dL (2-149) 01/14/19 21:09 Cholesterol 129 mg/dL (50-199) 01/14/19 21:09 56 mg/dL (50-130) 01/14/19 21:09 73 mg/dL (40-59) H 01/14/19 21:09 1.76 % 01/14/19 21:09 Straw (Yellow) 01/15/19 12:52 Clear (Clear) 01/15/19 12:52 5.0 (5.0-7.0) 01/15/19 12:52 Ur Specific [place] 1.024 (1.003-1.030) 01/15/19 12:52 <15 mg/dl mg/dL (Negative) 01/15/19 12:52 Neg mg/dL (Negative) 01/15/19 12:52 Neg mg/dL (Negative) 01/15/19 12:52 Sm (Negative) 01/15/19 12:52 Neg (Negative) 01/15/19 12:52 Neg (Negative) 01/15/19 12:52 < 2.0 mg/dL (<2.0) 01/15/19 12:52 Ur Leukocyte Esterase Neg (Negative) 01/15/19 12:52 < 1.0 /HPF (0.0-6.0) 01/15/19 12:52 1.0 /HPF (0.0-6.0) 01/15/19 12:52 U Epithel Cells (Auto) < 1.0 /HPF (0-13.0) 01/15/19 12:52 1+ /HPF (Negative) 01/15/19 12:52 Few /HPF 01/15/19 12:52 Active Medications - Current Medications Current Medications: Generic Name Dose Route Start Last Admin Trade Name Freq PRN Reason Stop Dose Admin Acetaminophen 650 mg 01/15/19 00:51 01/16/19 22:49 Tylenol PO 650 mg Q4H PRN Administration Pain MILD(1-3)/Fever >100.5/GOVEA Albuterol 2.5 mg 01/15/19 00:51 Proventil IH Q3HRT PRN Shortness Of Breath Albuterol/Ipratropium 1 ampul 01/15/19 02:00 01/17/19 02:56 Duoneb *Not For Prn Use* IH 1 ampul Q6HRT DONNA Administration Atorvastatin Calcium 40 mg 01/15/19 22:00 01/16/19 22:48 Lipitor PO 40 mg QHS DONNA Administration Budesonide 0.5 mg 01/15/19 08:00 01/16/19 20:01 Pulmicort IH 0.5 mg Q12HRT DONNA Administration Carvedilol 3.125 mg 01/15/19 22:00 01/17/19 11:14 Coreg PO 3.125 mg BID DONNA Administration Clopidogrel Bisulfate 75 mg 01/15/19 10:00 01/17/19 11:14 Plavix PO 75 mg QDAY DONNA Administration Dextrose 50 ml 01/15/19 00:51 D50w (25gm) Syringe IV PRN PRN Hypoglycemia Docusate Sodium 100 mg 01/15/19 10:00 01/17/19 11:14 Colace PO 100 mg BID DONNA Administration Furosemide 40 mg 01/17/19 06:00 01/17/19 05:24 Lasix IV 40 mg 0600,1800 [facility] Administration Guaifenesin 600 mg 01/15/19 10:00 01/17/19 11:15 Mucinex Er PO 600 mg BID DONNA Administration Insulin Human Lispro 0 unit 01/15/19 07:30 01/16/19 22:48 Humalog SUB-Q 2 unit ACHS DONNA Administration Protocol Isosorbide Mononitrate 30 mg 01/15/19 10:00 01/17/19 11:15 Imdur PO 30 mg QDAY [facility] Administration Methylprednisolone Sodium Succinate 40 mg 01/17/19 14:00 Solu-Medrol IV Q8HR [facility] Nitroglycerin 0.4 mg 01/15/19 01:35 Nitrostat SL .Q5MIN PRN Chest Pain Ondansetron HCl 4 mg 01/15/19 00:51 Zofran IV Q8H PRN Nausea And Vomiting Oxycodone/Acetaminophen 1 tab 01/15/19 00:51 01/15/19 18:40 Percocet 5/325 PO 1 tab Q6H PRN Administration Pain, Moderate (4-6) Sodium Chloride 10 ml 01/15/19 10:00 01/17/19 11:18 Sodium Chloride Flush Syringe 10 Ml IV 10 ml BID DONNA Administration Sodium Chloride 10 ml 01/15/19 00:51 01/17/19 05:25 Sodium Chloride Flush Syringe 10 Ml IV 10 ml PRN PRN Administration LINE FLUSH Nutrition/Malnutrition Assess - Dietary Evaluation Nutrition/Malnutrition Findings: Nutrition Notes Start: 01/15/19 15 :42 Freq: Status: Active Protocol: Document 01/15/19 15:42 RM (Rec: 01/15/19 15:52 RM [id number]) Nutrition Notes Need for Assessment generated from: MST Initial or Follow up Assessment Current Diagnosis COPD,Diabetes Other Pertinent Diagnosis Diverticulitis, Hx ovarian CA Current Diet Cardiac Labs/Tests Reviewed Pertinent Medications Solu-Medrol Height 5 ft 3 in Weight 54.2 kg Usual Body Weight 72.73 kg [place] Body Weight (kg) 52.27 BMI 21.2 Weight change and time frame 25.5% wt loss X 3 years Subjective/Other Information Screened for malnutrition. Pt stated that TOSSER her appetite was poor d/t decreased ability to taste and smell foods. Stated that she was mostly consuming fluids but also ate a small breakfast and dinner. Stated sometimes she drank a Glucerna for lunch . Stated that her appetite is poor here and that she has only been consuming liquids. Stated UBW was 160 lbs in October 2015. No temporal or orbital wasting . Burn Absent Trauma Absent #1 Nutrition Diagnosis Inadequate oral intake Etiology decreased ability to taste and smell foods As Evidenced by Signs and Symptoms pt statement that she has only been consuming liquids Is patient on ventilator? No Is Patient Ambulatory and/or Out of Bed Yes REE-([facility]-ambulatory/OOB) [ [id number] [id number]] Calculation Used for Recommendations [facility] Additional Notes Protein Needs: 54-65g (1-1.2g/ kg) Fluid Needs: 1 ml/kcal Nutrition Intervention Change Diet Order: Consistent CHO Add Supplement/Snack (indicate name/kcal Glucerna BID /protein ) Provides kCal: 440 Provides Protein (gm) 20 Goal #1 Meet at least 75% of calorie and protein needs via PO and ONS intakes Anticipated Discharge Needs: Consistent CHO diet Follow-Up By: 01/19/19 Additional Comments Follow for PO and ONS intakes
[2019-01-17] MEDS: HumaLOG SUB-Q SCH ×4 (12:02→21:41)
--- NOTE | 2019-01-17 12:03 | Progress Note ---
Assessment and Plan - Patient Problems (1) STEMI (ST elevation myocardial infarction) Current Visit: Yes Status: Acute Plan to address problem: EKG shows anteroseptal ST elevation, cardiac catheterization negative for significant coronary lesions. Patient will be recommended for medical management including long-acting oral nitrates. We will defer to internal medicine on pulmonary for further management of the patient's COPD exacerbation. Subjective Date of service: 01/17/19 Interval history: Patient is currently on BiPAP for her COPD, no cardiac complaints, no active cardiac issues. Objective Vital Signs Temp Pulse Pulse Resp Resp BP BP 01/17/19 11:15 85 137/71 01/17/19 11:14 87 137/71 01/17/19 04:21 97.5 F L 74 20 142/77 01/17/19 03:13 78 24 01/17/19 02:56 81 24 01/17/19 00:58 79 01/16/19 23:46 79 24 01/16/19 23:30 97.5 F L 64 18 117/65 01/16/19 22:49 102 H 22 162/89 01/16/19 20:13 94 H 25 H 01/16/19 19:59 121/67 01/16/19 19:57 97.8 F 90 20 01/16/19 19:53 90 25 H 01/16/19 17:30 90 24 01/16/19 16:43 98.3 F 92 H 20 145/83 01/16/19 13:07 90 20 01/16/19 12:06 135/76 Pulse Ox 01/17/19 11:15 01/17/19 11:14 01/17/19 04:21 92 01/17/19 03:13 95 01/17/19 02:56 01/17/19 00:58 01/16/19 23:46 94 01/16/19 23:30 100 01/16/19 22:49 01/16/19 20:13 01/16/19 19:59 94 01/16/19 19:57 94 01/16/19 19:53 94 01/16/19 17:30 92 01/16/19 16:43 91 01/16/19 13:07 01/16/19 12:06 - Physical Examination General: No Apparent Distress HEENT: Positive: PERRL Neck: Positive: neck supple Cardiac: Positive: Reg Rate and Rhythm Lungs: Positive: Decreased Breath Sounds Neuro: Positive: Grossly Intact Abdomen: Positive: Soft Skin: Positive: Clear Incision: Cardiac Cath Site Extremities: Absent: edema - Labs and Meds CBC 01/17/19 Range/Units 04:57 Hgb 10.8 (10.1-14.3) gm/dl Hct 33.6 (30.3-42.9) % Plt Count 247 (140-440) K/mm3 Comprehensive Metabolic Panel 01/17/19 Range/Units 09:52 Sodium 145 (137-145) mmol/L Potassium 4.9 (3.6-5.0) mmol/L Chloride 93.0 L (98-107) mmol/L Carbon Dioxide 39 H (22-30) mmol/L BUN 32 H (7-17) mg/dL Creatinine 0.9 (0.7-1.2) mg/dL Glucose 181 H (65-100) mg/dL Calcium 10.2 (8.4-10.2) mg/dL
[2019-01-17] MEDS: PULMICORT IH SCH ×2 (13:03→20:23)
[2019-01-18] MEDS: DUONEB *Not for PRN Use IH SCH ×4 (02:57→20:40)
[2019-01-18] MEDS: LASIX IV SCH ×2 (05:58→17:45)
[2019-01-18] MEDS: SOLU-Medrol IV SCH (05:58)
[2019-01-18] MEDS: SODIUM CHLORIDE FLUSH SYRINGE 10 ML IV PRN (05:58)
[2019-01-18] MEDS: PULMICORT IH SCH ×2 (08:32→20:40)
[2019-01-18] MEDS: PLAVIX PO SCH (10:23)
[2019-01-18] MEDS: IMDUR PO SCH (10:23)
[2019-01-18] MEDS: MUCINEX ER PO SCH ×2 (10:23→22:31)
[2019-01-18] MEDS: COLACE PO SCH ×2 (10:24→22:31)
[2019-01-18] MEDS: COREG PO SCH ×2 (10:24→22:31)
[2019-01-18] MEDS: SODIUM CHLORIDE FLUSH SYRINGE 10 ML IV SCH ×2 (10:27→22:31)
[2019-01-18] MEDS: HumaLOG SUB-Q SCH ×5 (11:05→23:23)
--- NOTE | 2019-01-18 12:39 | Progress Note ---
Assessment and Plan Assessment and plan: 71-year-old -[place] female with history of diabetes, asthma/ COPD, diverticulitis, ovarian cancer s/p hysterectomy who presents to [facility] ED with complaints of difficulty in breathing. Leukocytosis 12.5, hyperkalemia 6.1. Troponin elevated 2 with upward trend. Initial EKG showed sinus rhythm with prolonged QT interval, repeat EKG showed anterior STEMI. Code STEMI protocol was initiated and cardiology (Dr. Pedro) was notified. S/P cath --Acute Exacerbation of COPD; symptoms significantly improved Continue oxygen, nebulizers, tapering doses of steroids and supportive care. Pulm following --Acute hypoxic respiratory failure; secondary to COPD exacerbation Continue nebulizers oxygen, evaluate for home oxygen Bipap at night. --STEMI; cardiology evaluated the patient s/p heart catheterization;no significant coronary stenosis. The LAD and its diagonal system were tortuous, but free of significant disease. Ejection fraction 50-55%. Possible coronary spasm Antiplatelets ,nitrates, supportive care,cardiology following --Hyperkalemia; corrected --DVT prophylaxis; Lovenox PT evaln and treatment Disposition; possible discharge home tomorrow. home oxygen at discharge Plan of care discussed with the patient, her sister at bed side and her nurse History Interval history: Patient's medical records reviewed No new overnight events reported by the nursing Patient feels much better today Very minimal shortness of breath, denies chest pain Vital signs reviewed Hospitalist Physical - Constitutional Vitals: Temp Pulse Resp BP Pulse Ox 98.2 F 77 18 138/84 97 01/18/19 08:43 01/18/19 10:24 01/18/19 08:43 01/18/19 10:24 01/18/19 08:43 General appearance: Present: no acute distress, well-nourished - EENT Eyes: Present: PERRL, EOM intact - Neck Neck: Present: supple, normal ROM - Respiratory Respiratory effort: normal Respiratory: bilateral: diminished, negative: rales, rhonchi, wheezing - Cardiovascular Rhythm: regular Heart Sounds: Present: S1 & S2 - Extremities Extremities: no ischemia, pulses intact - Abdominal General gastrointestinal: soft, non-tender, non-distended, normal bowel sounds - Integumentary Integumentary: Present: clear, warm - Psychiatric Psychiatric: appropriate mood/affect, cooperative - Neurologic Neurologic: CNII-XII intact, moves all extremities Results - Labs CBC & Chem 7: 01/17/19 04:57 01/17/19 09:52 Labs: Laboratory Last Values WBC 12.2 K/mm3 (4.5-11.0) H 01/16/19 05:50 RBC 3.78 M/mm3 (3.65-5.03) 01/16/19 05:50 Hgb 10.8 gm/dl (10.1-14.3) 01/17/19 04:57 Hct 33.6 % (30.3-42.9) 01/17/19 04:57 MCV 86 fl (79-97) 01/16/19 05:50 MCH 27 pg (28-32) L 01/16/19 05:50 MCHC 31 % (30-34) 01/16/19 05:50 RDW 15.3 % (13.2-15.2) H 01/16/19 05:50 Plt Count 247 K/mm3 (140-440) 01/17/19 04:57 Add Manual Diff Complete 01/16/19 05:50 Total Counted 100 01/16/19 05:50 Seg Neutrophils % Multiple Drum Sander Helper 01/16/19 05:50 Seg Neuts % (Manual) 95.0 % (40.0-70.0) H 01/16/19 05:50 0 % 01/16/19 05:50 3.0 % (13.4-35.0) L 01/16/19 05:50 Reactive Lymphs % (Man) 0 % 01/16/19 05:50 2.0 % (0.0-7.3) 01/16/19 05:50 0 % (0.0-4.3) 01/16/19 05:50 0 % (0.0-1.8) 01/16/19 05:50 0 % 01/16/19 05:50 0 % 01/16/19 05:50 0 % 01/16/19 05:50 0 % 01/16/19 05:50 Nucleated RBC % Not Reportable 01/16/19 05:50 Seg Neutrophils # Man 11.6 K/mm3 (1.8-7.7) H 01/16/19 05:50 Band Neutrophils # 0.0 K/mm3 01/16/19 05:50 0.4 K/mm3 (1.2-5.4) L 01/16/19 05:50 Abs React Lymphs (Man) 0.0 K/mm3 01/16/19 05:50 0.2 K/mm3 (0.0-0.8) 01/16/19 05:50 0.0 K/mm3 (0.0-0.4) 01/16/19 05:50 0.0 K/mm3 (0.0-0.1) 01/16/19 05:50 0.0 K/mm3 01/16/19 05:50 0.0 K/mm3 01/16/19 05:50 0.0 K/mm3 01/16/19 05:50 Blast Cells # 0.0 K/mm3 01/16/19 05:50 WBC Morphology Not Reportable 01/16/19 05:50 Hypersegmented Neuts Not Reportable 01/16/19 05:50 Hyposegmented Neuts Not Reportable 01/16/19 05:50 Hypogranular Neuts Not Reportable 01/16/19 05:50 Not Reportable 01/16/19 05:50 Not Reportable 01/16/19 05:50 Not Reportable 01/16/19 05:50 Not Reportable 01/16/19 05:50 Not Reportable 01/16/19 05:50 Not Reportable 01/16/19 05:50 Consistent w auto 01/16/19 05:50 Not Reportable 01/16/19 05:50 Plt Clumps, EDTA Not Reportable 01/16/19 05:50 1+ 01/16/19 05:50 Not Reportable 01/16/19 05:50 Not Reportable 01/16/19 05:50 Plt Morphology Comment Not Reportable 01/16/19 05:50 RBC Morphology Not Reportable 01/16/19 05:50 Dimorphic RBCs Not Reportable 01/16/19 05:50 Rare 01/16/19 05:50 Not Reportable 01/16/19 05:50 Not Reportable 01/16/19 05:50 Few 01/16/19 05:50 Not Reportable 01/16/19 05:50 Not Reportable 01/16/19 05:50 Not Reportable 01/16/19 05:50 Not Reportable 01/16/19 05:50 Not Reportable 01/16/19 05:50 1+ 01/16/19 05:50 Not Reportable 01/16/19 05:50 Not Reportable 01/16/19 05:50 Not Reportable 01/16/19 05:50 Not Reportable 01/16/19 05:50 Not Reportable 01/16/19 05:50 Not Reportable 01/16/19 05:50 Not Reportable 01/16/19 05:50 Not Reportable 01/16/19 05:50 Not Reportable 01/16/19 05:50 Acanthocytes (Spur) Not Reportable 01/16/19 05:50 Rouleaux Not Reportable 01/16/19 05:50 Not Reportable 01/16/19 05:50 Not Reportable 01/16/19 05:50 Not Reportable 01/16/19 05:50 Not Reportable 01/16/19 05:50 Hem Pathologist Commnt No 01/16/19 05:50 PT 14.5 Sec. (12.2-14.9) 01/15/19 01:28 INR 1.16 (0.87-1.13) H 01/15/19 01:28 APTT 26.1 Sec. (24.2-36.6) 01/15/19 01:28 381.33 ng/mlDDU (0-234) H 01/15/19 07:59 Heparin Anti-Xa Level 0.10 U.I./ml (0.3-0.7) L 01/17/19 08:38 POC ABG pH 7.353 (7.35-7.45) 01/15/19 06:29 POC ABG pCO2 54.8 (35-45) H 01/15/19 06:29 POC ABG pO2 84 (80-105) 01/15/19 06:29 POC ABG HCO3 30.5 (22-26 mml/L) 01/15/19 06:29 POC ABG Total CO2 32 (23-27mmol/L) 01/15/19 06:29 POC ABG O2 Sat 96 01/15/19 06:29 POC ABG Base Excess 5 ((-2) - (+3)mmol/L) 01/15/19 06:29 40 % 01/15/19 06:29 Sodium 145 mmol/L (137-145) 01/17/19 09:52 Potassium 4.9 mmol/L (3.6-5.0) 01/17/19 09:52 Chloride 93.0 mmol/L (98-107) L 01/17/19 09:52 Carbon Dioxide 39 mmol/L (22-30) H 01/17/19 09:52 18 mmol/L 01/17/19 09:52 BUN 32 mg/dL (7-17) H 01/17/19 09:52 0.9 mg/dL (0.7-1.2) 01/17/19 09:52 Estimated GFR > 60 ml/min 01/17/19 09:52 36 % 01/17/19 09:52 Glucose 181 mg/dL (65-100) H 01/17/19 09:52 POC Glucose 204 (70-105) H 01/18/19 11:49 4.8 % (4-6) 01/15/19 02:04 Calcium 10.2 mg/dL (8.4-10.2) 01/17/19 09:52 0.60 mg/dL (0.1-1.2) 01/14/19 22:24 0.2 mg/dL (0-0.2) 01/14/19 22:24 0.4 mg/dL 01/14/19 22:24 AST 52 units/L (5-40) H 01/14/19 22:24 ALT 62 units/L (7-56) H 01/14/19 22:24 113 units/L (35-129) 01/14/19 22:24 0.255 ng/mL (0.00-0.029) H* 01/14/19 22:52 NT-Pro-B Natriuret Pep 8638 pg/mL (0-900) H 01/14/19 22:24 8.1 g/dL (6.3-8.2) 01/14/19 22:24 4.5 g/dL (3.9-5) 01/14/19 22:24 1.3 % 01/14/19 22:24 Triglycerides 53 mg/dL (2-149) 01/14/19 21:09 Cholesterol 129 mg/dL (50-199) 01/14/19 21:09 56 mg/dL (50-130) 01/14/19 21:09 73 mg/dL (40-59) H 01/14/19 21:09 1.76 % 01/14/19 21:09 Straw (Yellow) 01/15/19 12:52 Clear (Clear) 01/15/19 12:52 5.0 (5.0-7.0) 01/15/19 12:52 Ur Specific [place] 1.024 (1.003-1.030) 01/15/19 12:52 <15 mg/dl mg/dL (Negative) 01/15/19 12:52 Neg mg/dL (Negative) 01/15/19 12:52 Neg mg/dL (Negative) 01/15/19 12:52 Sm (Negative) 01/15/19 12:52 Neg (Negative) 01/15/19 12:52 Neg (Negative) 01/15/19 12:52 < 2.0 mg/dL (<2.0) 01/15/19 12:52 Ur Leukocyte Esterase Neg (Negative) 01/15/19 12:52 < 1.0 /HPF (0.0-6.0) 01/15/19 12:52 1.0 /HPF (0.0-6.0) 01/15/19 12:52 U Epithel Cells (Auto) < 1.0 /HPF (0-13.0) 01/15/19 12:52 1+ /HPF (Negative) 01/15/19 12:52 Few /HPF 01/15/19 12:52 Active Medications - Current Medications Current Medications: Generic Name Dose Route Start Last Admin Trade Name Freq PRN Reason Stop Dose Admin Acetaminophen 650 mg 01/15/19 00:51 01/16/19 22:49 Tylenol PO 650 mg Q4H PRN Administration Pain MILD(1-3)/Fever >100.5/GOVEA Albuterol 2.5 mg 01/15/19 00:51 Proventil IH Q3HRT PRN Shortness Of Breath Albuterol/Ipratropium 1 ampul 01/15/19 02:00 01/18/19 08:32 Duoneb *Not For Prn Use* IH 1 ampul Q6HRT DONNA Administration Atorvastatin Calcium 40 mg 01/15/19 22:00 01/17/19 21:41 Lipitor PO 40 mg QHS DONNA Administration Budesonide 0.5 mg 01/15/19 08:00 07/21/19 08:32 Pulmicort IH 0.5 mg Q12HRT DONNA Administration Carvedilol 3.125 mg 01/15/19 22:00 01/18/19 10:24 Coreg PO 3.125 mg BID DONNA Administration Clopidogrel Bisulfate 75 mg 01/15/19 10:00 01/18/19 10:23 Plavix PO 75 mg QDAY DONNA Administration Dextrose 50 ml 01/15/19 00:51 D50w (25gm) Syringe IV PRN PRN Hypoglycemia Docusate Sodium 100 mg 01/15/19 10:00 01/18/19 10:24 Colace PO 100 mg BID DONNA Administration Furosemide 40 mg 01/17/19 06:00 01/18/19 05:58 Lasix IV 40 mg 0600,1800 [facility] Administration Guaifenesin 600 mg 01/15/19 10:00 01/18/19 10:23 Mucinex Er PO 600 mg BID DONNA Administration Insulin Human Lispro 0 unit 01/15/19 07:30 01/18/19 11:06 Humalog SUB-Q 2 unit ACHS [facility] Administration Protocol Isosorbide Mononitrate 30 mg 01/15/19 10:00 01/18/19 10:23 Imdur PO 30 mg QDAY [facility] Administration Methylprednisolone Sodium Succinate 40 mg 01/17/19 14:00 01/18/19 05:58 Solu-Medrol IV 40 mg Q8HR DONNA Administration Nitroglycerin 0.4 mg 01/15/19 01:35 Nitrostat SL .Q5MIN PRN Chest Pain Ondansetron HCl 4 mg 01/15/19 00:51 Zofran IV Q8H PRN Nausea And Vomiting Oxycodone/Acetaminophen 1 tab 01/15/19 00:51 01/15/19 18:40 Percocet 5/325 PO 1 tab Q6H PRN Administration Pain, Moderate (4-6) Sodium Chloride 10 ml 01/15/19 10:00 01/18/19 10:27 Sodium Chloride Flush Syringe 10 Ml IV 10 ml BID DONNA Administration Sodium Chloride 10 ml 01/15/19 00:51 01/18/19 05:58 Sodium Chloride Flush Syringe 10 Ml IV 10 ml PRN PRN Administration LINE FLUSH Nutrition/Malnutrition Assess - Dietary Evaluation Nutrition/Malnutrition Findings: Nutrition Notes Start: 01/15/19 15:42 Freq: Status: Active Protocol: Document 01/15/19 15:42 RM (Rec: 01/15/19 15:52 RM [id number]) Nutrition Notes Need for Assessment generated from: MST Initial or Follow up Assessment Current Diagnosis COPD,Diabetes Other Pertinent Diagnosis Diverticulitis, Hx ovarian CA Current Diet Cardiac Labs/Tests Reviewed Pertinent Medications Solu-Medrol Height 5 ft 3 in Weight 54.2 kg Usual Body Weight 72.73 kg [place] Body Weight (kg) 52.27 BMI 21.2 Weight change and time frame 25.5% wt loss X 3 years Subjective/Other Information Screened for malnutrition. Pt stated that ANALYSIS MGR her appetite was poor d/t decreased ability to taste and smell foods. Stated that she was mostly consuming fluids but also ate a small breakfast and dinner. Stated sometimes she drank a Glucerna for lunch . Stated that her appetite is poor here and that she has only been consuming liquids. Stated UBW was 160 lbs in October 2015. No temporal or orbital wasting . Burn Absent Trauma Absent #1 Nutrition Diagnosis Inadequate oral intake Etiology decreased ability to taste and smell foods As Evidenced by Signs and Symptoms pt statement that she has only been consuming liquids Is patient on ventilator? No Is Patient Ambulatory and/or Out of Bed Yes REE-([facility]-ambulatory/OOB) [ 1294.969 [id number]] Calculation Used for Recommendations [facility] Additional Notes Protein Needs: 54-65g (1-1.2g/ kg) Fluid Needs: 1 ml/kcal Nutrition Intervention Change Diet Order: Consistent CHO Add Supplement/Snack (indicate name/kcal Glucerna BID /protein ) Provides kCal: 440 Provides Protein (gm) 20 Goal #1 Meet at least 75% of calorie and protein needs via PO and ONS intakes Anticipated Discharge Needs: Consistent CHO diet Follow-Up By: 01/19/19 Additional Comments Follow for PO and ONS intakes
--- NOTE | 2019-01-18 13:32 | Progress Note ---
Assessment and Plan 78 y/o female with acute respiratory failure, thought secondary to sTEMI, found to have clean arteries, and elevated BNP with possible volume overload. 1. No objection to discharge today or tomorrow if need be. 2. Walk test to assess O2 needs. 3. Discharge on lasix 40 daily 4. Does not need PPV at discharge for nighttime use. 5. Gave her (sister) Dr. Robbi Garnett's office number as they are looking for a new PCP. Subjective Date of service: 01/18/19 Interval history: No acute events. Did not wear bipap therapy last night and tolerated well. Sister at bedside. Currently on room air and stable. Objective Vital Signs - 12hr 01/18/19 01/18/19 01/18/19 03:39 08:43 10:23 Temperature 97.3 F L 98.2 F Pulse Rate 83 77 77 Respiratory 16 18 Rate Blood Pressure 150/86 134/84 138/84 O2 Sat by Pulse 93 97 Oximetry 01/18/19 10:24 Temperature Pulse Rate 77 Respiratory Rate Blood Pressure 138/84 O2 Sat by Pulse Oximetry Constitutional: no acute distress, alert Eyes: non-icteric ENT: other (Full face mask bipap on) Neck: supple Ascultation: Bilateral: rales Percussion: Bilateral: not dull Cardiovascular: regular rate and rhythm Gastrointestinal: normoactive bowel sounds, soft Extremities: no edema Neurologic: normal mental status, non-focal exam CBC and BMP: 01/17/19 04:57 01/17/19 09:52 ABG, PT/INR, D-dimer: ABG POC ABG pH 7.353 (7.35-7.45) 01/15/19 06:29 POC ABG pCO2 54.8 (35-45) H 01/15/19 06:29 POC ABG pO2 84 (80-105) 01/15/19 06:29 POC ABG HCO3 30.5 (22-26 mml/L) 01/15/19 06:29 POC ABG Total CO2 32 (23-27mmol/L) 01/15/19 06:29 POC ABG O2 Sat 96 01/15/19 06:29 PT/INR, D-dimer PT 14.5 Sec. (12.2-14.9) 01/15/19 01:28 INR 1.16 (0.87-1.13) H 01/15/19 01:28 381.33 ng/mlDDU (0-234) H 01/15/19 07:59 Abnormal lab findings: Abnormal Labs 01/14/19 01/14/19 01/14/19 21:09 21:09 21:09 WBC 12.5 H MCH 27 L RDW 16.0 H Seg Neuts % (Manual) 86.0 H Lymphocytes % (Manual) 4.0 L Monocytes % (Manual) 10.0 H Seg Neutrophils # Man 10.8 H Lymphocytes # (Manual) 0.5 L Monocytes # (Manual) 1.3 H INR D-Dimer Heparin Anti-Xa Level POC ABG pH POC ABG pCO2 POC ABG pO2 Sodium Potassium 6.2 H* Chloride Carbon Dioxide BUN 23 H Glucose 227 H POC Glucose AST 51 H ALT 61 H Troponin T 0.224 H* NT-Pro-B Natriuret Pep HDL Cholesterol 73 H 01/14/19 01/14/19 01/15/19 22:24 22:52 00:35 WBC MCH RDW Seg Neuts % (Manual) Lymphocytes % (Manual) Monocytes % (Manual) Seg Neutrophils # Man Lymphocytes # (Manual) Monocytes # (Manual) INR D-Dimer Heparin Anti-Xa Level POC ABG pH 7.296 L POC ABG pCO2 64.0 H POC ABG pO2 65 L Sodium 146 H Potassium 6.1 H* Chloride Carbon Dioxide BUN 23 H Glucose 221 H POC Glucose AST 52 H ALT 62 H Troponin T 0.255 H* NT-Pro-B Natriuret Pep 8638 H HDL Cholesterol 01/15/19 01/15/19 01/15/19 01:20 01:28 03:45 WBC MCH RDW Seg Neuts % (Manual) Lymphocytes % (Manual) Monocytes % (Manual) Seg Neutrophils # Man Lymphocytes # (Manual) Monocytes # (Manual) INR 1.16 H D-Dimer Heparin Anti-Xa Level POC ABG pH POC ABG pCO2 POC ABG pO2 Sodium Potassium Chloride Carbon Dioxide BUN Glucose POC Glucose 173 H 159 H AST ALT Troponin T NT-Pro-B Natriuret Pep HDL Cholesterol 01/15/19 01/15/19 01/15/19 04:27 06:29 07:46 WBC MCH RDW Seg Neuts % (Manual) Lymphocytes % (Manual) Monocytes % (Manual) Seg Neutrophils # Man Lymphocytes # (Manual) Monocytes # (Manual) INR D-Dimer Heparin Anti-Xa Level POC ABG pH 7.282 L POC ABG pCO2 66.5 H 54.8 H POC ABG pO2 65 L Sodium Potassium Chloride Carbon Dioxide BUN Glucose POC Glucose 180 H AST ALT Troponin T NT-Pro-B Natriuret Pep HDL Cholesterol 01/15/19 01/15/19 01/15/19 07:59 07:59 11:38 WBC MCH RDW Seg Neuts % (Manual) Lymphocytes % (Manual) Monocytes % (Manual) Seg Neutrophils # Man Lymphocytes # (Manual) Monocytes # (Manual) INR D-Dimer 381.33 H Heparin Anti-Xa Level < 0.10 L POC ABG pH POC ABG pCO2 POC ABG pO2 Sodium Potassium Chloride Carbon Dioxide BUN Glucose POC Glucose 181 H AST ALT Troponin T NT-Pro-B Natriuret Pep HDL Cholesterol 01/15/19 01/15/19 01/16/19 17:16 21:43 05:50 WBC 12.2 H MCH 27 L RDW 15.3 H Seg Neuts % (Manual) 95.0 H Lymphocytes % (Manual) 3.0 L Monocytes % (Manual) Seg Neutrophils # Man 11.6 H Lymphocytes # (Manual) 0.4 L Monocytes # (Manual) INR D-Dimer Heparin Anti-Xa Level POC ABG pH POC ABG pCO2 POC ABG pO2 Sodium Potassium Chloride Carbon Dioxide BUN Glucose POC Glucose 131 H 141 H AST ALT Troponin T NT-Pro-B Natriuret Pep HDL Cholesterol 01/16/19 01/16/19 01/16/19 05:50 08:12 12:23 WBC MCH RDW Seg Neuts % (Manual) Lymphocytes % (Manual) Monocytes % (Manual) Seg Neutrophils # Man Lymphocytes # (Manual) Monocytes # (Manual) INR D-Dimer Heparin Anti-Xa Level POC ABG pH POC ABG pCO2 POC ABG pO2 Sodium Potassium Chloride Carbon Dioxide 34 H D BUN 25 H Glucose 138 H POC Glucose 145 H 162 H AST ALT Troponin T NT-Pro-B Natriuret Pep HDL Cholesterol 01/16/19 01/16/19 01/17/19 16:48 22:24 00:52 WBC MCH RDW Seg Neuts % (Manual) Lymphocytes % (Manual) Monocytes % (Manual) Seg Neutrophils # Man Lymphocytes # (Manual) Monocytes # (Manual) INR D-Dimer Heparin Anti-Xa Level POC ABG pH POC ABG pCO2 POC ABG pO2 Sodium Potassium Chloride Carbon Dioxide BUN Glucose POC Glucose 137 H 147 H 141 H AST ALT Troponin T NT-Pro-B Natriuret Pep HDL Cholesterol 01/17/19 01/17/19 01/17/19 08:38 09:25 09:52 WBC MCH RDW Seg Neuts % (Manual) Lymphocytes % (Manual) Monocytes % (Manual) Seg Neutrophils # Man Lymphocytes # (Manual) Monocytes # (Manual) INR D-Dimer Heparin Anti-Xa Level 0.10 L POC ABG pH POC ABG pCO2 POC ABG pO2 Sodium Potassium Chloride 93.0 L Carbon Dioxide 39 H BUN 32 H Glucose 181 H POC Glucose 163 H AST ALT Troponin T NT-Pro-B Natriuret Pep HDL Cholesterol 01/17/19 01/17/19 01/17/19 11:58 18:09 21:10 WBC MCH RDW Seg Neuts % (Manual) Lymphocytes % (Manual) Monocytes % (Manual) Seg Neutrophils # Man Lymphocytes # (Manual) Monocytes # (Manual) INR D-Dimer Heparin Anti-Xa Level POC ABG pH POC ABG pCO2 POC ABG pO2 Sodium Potassium Chloride Carbon Dioxide BUN Glucose POC Glucose 262 H 136 H 181 H AST ALT Troponin T NT-Pro-B Natriuret Pep HDL Cholesterol 01/18/19 01/18/19 08:48 11:49 WBC MCH RDW Seg Neuts % (Manual) Lymphocytes % (Manual) Monocytes % (Manual) Seg Neutrophils # Man Lymphocytes # (Manual) Monocytes # (Manual) INR D-Dimer Heparin Anti-Xa Level POC ABG pH POC ABG pCO2 POC ABG pO2 Sodium Potassium Chloride Carbon Dioxide BUN Glucose POC Glucose 163 H 204 H AST ALT Troponin T NT-Pro-B Natriuret Pep HDL Cholesterol
[2019-01-18] MEDS ORDERED: SOLU-Medrol IV SCH (14:00)
--- NOTE | 2019-01-18 15:39 | Progress Note ---
Assessment and Plan - Patient Problems (1) STEMI (ST elevation myocardial infarction) Current Visit: Yes Status: Acute Plan to address problem: EKG with anteroseptal ST elevation, cardiac catheterization negative for significant coronary lesions. Patient recommended for medical management including long-acting oral nitrates. Patient is stable from cardiac discharge on medical management as outlined. Subjective Date of service: 01/18/19 Interval history: Patient is comfortable, no acute distress, breathing comfortably on nasal oxygen. Objective Vital Signs Temp Pulse Pulse Pulse Resp Resp Resp 01/18/19 13:29 107 H 18 01/18/19 13:12 98.5 F 84 18 01/18/19 12:31 98.2 F 84 18 01/18/19 10:24 77 01/18/19 10:23 77 01/18/19 08:43 98.2 F 77 18 01/18/19 03:39 97.3 F L 83 16 01/18/19 00:06 60 18 01/17/19 23:16 98.4 F 87 16 01/17/19 21:40 84 01/17/19 20:27 01/17/19 20:24 82 84 18 18 01/17/19 20:00 89 01/17/19 19:51 01/17/19 19:23 98.4 F 87 16 01/17/19 18:02 98.6 F 86 18 01/17/19 16:33 01/17/19 16:30 79 76 16 20 BP BP Pulse Ox 01/18/19 13:29 84/48 87 01/18/19 13:12 128/72 82 L 01/18/19 12:31 142/82 92 01/18/19 10:24 138/84 01/18/19 10:23 138/84 01/18/19 08:43 134/84 97 01/18/19 03:39 150/86 93 01/18/19 00:06 97 01/17/19 23:16 154/85 93 01/17/19 21:40 144/74 01/17/19 20:27 92 01/17/19 20:24 01/17/19 20:00 144/76 01/17/19 19:51 104/54 01/17/19 19:23 134/76 92 01/17/19 18:02 146/83 90 01/17/19 16:33 95 01/17/19 16:30 - Physical Examination General: No Apparent Distress HEENT: Positive: PERRL Neck: Positive: neck supple Cardiac: Positive: Reg Rate and Rhythm Lungs: Positive: Decreased Breath Sounds Neuro: Positive: Grossly Intact Abdomen: Positive: Soft Skin: Positive: Clear Incision: Cardiac Cath Site Extremities: Absent: edema
[2019-01-18] MEDS: GLUCOPHAGE XR PO SCH (17:45)
[2019-01-19] MEDS: DUONEB *Not for PRN Use IH SCH ×3 (02:26→13:40)
[2019-01-19] MEDS: SOLU-Medrol IV SCH ×2 (05:56→18:19)
[2019-01-19] MEDS: LASIX IV SCH ×2 (05:56→19:18)
[2019-01-19 06:28] LABS: Hematocrit 38.6 % (30.3-42.9); Hemoglobin 12.3 gm/dl (10.1-14.3)
[2019-01-19 07:55] VITALS: BP 148/78
[2019-01-19] MEDS: PULMICORT IH SCH (08:01)
[2019-01-19] MEDS: HumaLOG SUB-Q SCH ×3 (08:22→17:18)
[2019-01-19] MEDS ORDERED: PAXIL PO SCH (10:00)
[2019-01-19] MEDS: IMDUR PO SCH (10:04)
[2019-01-19] MEDS: COLACE PO SCH (10:04)
[2019-01-19] MEDS: MUCINEX ER PO SCH (10:04)
[2019-01-19] MEDS: PLAVIX PO SCH (10:04)
[2019-01-19] MEDS: COREG PO SCH (10:05)
--- NOTE | 2019-01-19 13:07 | Progress Note ---
Assessment and Plan COPD exacerbation STEMI A cardiac catheterization showed no significant coronary stenosis. The LAD and its diagonal system were tortuous, but free of significant disease. Ejection fraction 50-55%. Hyperkalemia Prior GI bleed Echocardiogram shows well-preserved left ventricular systolic function with ejection fraction 55%. Most significant finding on the echo was dilatation of the right heart chambers, with moderate right ventricular systolic dysfunction, but only mild tricuspid regurgitation and no significant pulmonary hypertension. Continue medical management to include plavix and long-acting oral nitrates for possible transient coronary spasm. Otherwise, conservative cardiac management. We will follow intermittently. Subjective Date of service: 01/19/19 Interval history: Patient has no complaints. She denies chest pain. Objective Vital Signs Temp Pulse Pulse Pulse Resp Resp Resp 01/19/19 10:00 20 01/19/19 08:23 78 01/19/19 08:01 78 20 01/19/19 07:34 98.3 F 76 16 01/19/19 03:52 98.1 F 68 16 01/19/19 00:00 82 18 01/18/19 23:38 97.4 F L 16 01/18/19 23:00 74 01/18/19 20:43 85 18 01/18/19 20:41 01/18/19 19:49 72 01/18/19 19:40 98.2 F 86 16 01/18/19 17:22 72 01/18/19 17:15 98.2 F 86 18 01/18/19 15:15 70 72 18 18 01/18/19 13:29 107 H 18 01/18/19 13:12 98.5 F 84 18 BP Pulse Ox 01/19/19 10:00 96 01/19/19 08:23 01/19/19 08:01 94 01/19/19 07:34 148/78 92 01/19/19 03:52 130/68 99 01/19/19 00:00 96 01/18/19 23:38 156/81 01/18/19 23:00 01/18/19 20:43 01/18/19 20:41 98 01/18/19 19:49 01/18/19 19:40 131/69 97 01/18/19 17:22 138/85 100 01/18/19 17:15 117/68 97 01/18/19 15:15 01/18/19 13:29 84/48 87 01/18/19 13:12 128/72 82 L - Physical Examination General: No Apparent Distress HEENT: Positive: PERRL Neck: Positive: neck supple Cardiac: Positive: Reg Rate and Rhythm Lungs: Positive: Decreased Breath Sounds Neuro: Positive: Grossly Intact Abdomen: Positive: Soft Extremities: Absent: edema - Labs and Meds CBC 01/19/19 Range/Units 05:08 Hgb 12.3 (10.1-14.3) gm/dl Hct 38.6 (30.3-42.9) % Plt Count 256 (140-440) K/mm3
--- NOTE | 2019-01-19 14:20 | Progress Note ---
Assessment and Plan 01/19 continue current mgmt check RA pulse ox was 84 May need home 02 will arrange Subjective Date of service: 01/19/19 Principal diagnosis: copd, [place] Interval history: 01/19 stable improving clinically on 30 October need 02 oob Objective Vital Signs - 12hr 01/19/19 01/19/19 01/19/19 03:52 07:34 08:01 Temperature 98.1 F 98.3 F Pulse Rate 68 76 Pulse Rate [ 78 Anterior Bilateral] Respiratory 16 16 Rate Respiratory 20 Rate [Anterior Bilateral] Blood Pressure 130/68 148/78 O2 Sat by Pulse 99 92 94 Oximetry 01/19/19 01/19/19 08:23 10:00 Temperature Pulse Rate 78 Pulse Rate [ Anterior Bilateral] Respiratory 20 Rate Respiratory Rate [Anterior Bilateral] Blood Pressure O2 Sat by Pulse 96 Oximetry Constitutional: no acute distress, alert Eyes: non-icteric ENT: other (Full face mask bipap on) Neck: supple Ascultation: Bilateral: rales Percussion: Bilateral: not dull Cardiovascular: regular rate and rhythm Gastrointestinal: normoactive bowel sounds, soft Extremities: no edema Neurologic: normal mental status, non-focal exam CBC and BMP: 01/19/19 05:08 01/17/19 09:52 ABG, PT/INR, D-dimer: ABG POC ABG pH 7.353 (7.35-7.45) 01/15/19 06:29 POC ABG pCO2 54.8 (35-45) H 01/15/19 06:29 POC ABG pO2 84 (80-105) 01/15/19 06:29 POC ABG HCO3 30.5 (22-26 mml/L) 01/15/19 06:29 POC ABG Total CO2 32 (23-27mmol/L) 01/15/19 06:29 POC ABG O2 Sat 96 01/15/19 06:29 PT/INR, D-dimer PT 14.5 Sec. (12.2-14.9) 01/15/19 01:28 INR 1.16 (0.87-1.13) H 01/15/19 01:28 381.33 ng/mlDDU (0-234) H 01/15/19 07:59 Abnormal lab findings: Abnormal Labs 01/14/19 01/14/19 01/14/19 21:09 21:09 21:09 WBC 12.5 H MCH 27 L RDW 16.0 H Seg Neuts % (Manual) 86.0 H Lymphocytes % (Manual) 4.0 L Monocytes % (Manual) 10.0 H Seg Neutrophils # Man 10.8 H Lymphocytes # (Manual) 0.5 L Monocytes # (Manual) 1.3 H INR Activated Clotting Time D-Dimer Heparin Anti-Xa Level POC ABG pH POC ABG pCO2 POC ABG pO2 Sodium Potassium 6.2 H* Chloride Carbon Dioxide BUN 23 H Glucose 227 H POC Glucose AST 51 H ALT 61 H Troponin T 0.224 H* NT-Pro-B Natriuret Pep HDL Cholesterol 73 H 01/14/19 01/14/19 01/15/19 22:24 22:52 00:35 WBC MCH RDW Seg Neuts % (Manual) Lymphocytes % (Manual) Monocytes % (Manual) Seg Neutrophils # Man Lymphocytes # (Manual) Monocytes # (Manual) INR Activated Clotting Time D-Dimer Heparin Anti-Xa Level POC ABG pH 7.296 L POC ABG pCO2 64.0 H POC ABG pO2 65 L Sodium 146 H Potassium 6.1 H* Chloride Carbon Dioxide BUN 23 H Glucose 221 H POC Glucose AST 52 H ALT 62 H Troponin T 0.255 H* NT-Pro-B Natriuret Pep 8638 H HDL Cholesterol 01/15/19 01/15/19 01/15/19 01:20 01:28 02:36 WBC MCH RDW Seg Neuts % (Manual) Lymphocytes % (Manual) Monocytes % (Manual) Seg Neutrophils # Man Lymphocytes # (Manual) Monocytes # (Manual) INR 1.16 H Activated Clotting Time 164 H D-Dimer Heparin Anti-Xa Level POC ABG pH POC ABG pCO2 POC ABG pO2 Sodium Potassium Chloride Carbon Dioxide BUN Glucose POC Glucose 173 H AST ALT Troponin T NT-Pro-B Natriuret Pep HDL Cholesterol 01/15/19 01/15/19 01/15/19 03:45 04:27 06:29 WBC MCH RDW Seg Neuts % (Manual) Lymphocytes % (Manual) Monocytes % (Manual) Seg Neutrophils # Man Lymphocytes # (Manual) Monocytes # (Manual) INR Activated Clotting Time D-Dimer Heparin Anti-Xa Level POC ABG pH 7.282 L POC ABG pCO2 66.5 H 54.8 H POC ABG pO2 65 L Sodium Potassium Chloride Carbon Dioxide BUN Glucose POC Glucose 159 H AST ALT Troponin T NT-Pro-B Natriuret Pep HDL Cholesterol 01/15/19 01/15/19 01/15/19 07:46 07:59 07:59 WBC MCH RDW Seg Neuts % (Manual) Lymphocytes % (Manual) Monocytes % (Manual) Seg Neutrophils # Man Lymphocytes # (Manual) Monocytes # (Manual) INR Activated Clotting Time D-Dimer 381.33 H Heparin Anti-Xa Level < 0.10 L POC ABG pH POC ABG pCO2 POC ABG pO2 Sodium Potassium Chloride Carbon Dioxide BUN Glucose POC Glucose 180 H AST ALT Troponin T NT-Pro-B Natriuret Pep HDL Cholesterol 01/15/19 01/15/19 01/15/19 11:38 17:16 21:43 WBC MCH RDW Seg Neuts % (Manual) Lymphocytes % (Manual) Monocytes % (Manual) Seg Neutrophils # Man Lymphocytes # (Manual) Monocytes # (Manual) INR Activated Clotting Time D-Dimer Heparin Anti-Xa Level POC ABG pH POC ABG pCO2 POC ABG pO2 Sodium Potassium Chloride Carbon Dioxide BUN Glucose POC Glucose 181 H 131 H 141 H AST ALT Troponin T NT-Pro-B Natriuret Pep HDL Cholesterol 01/16/19 01/16/19 01/16/19 05:50 05:50 08:12 WBC 12.2 H MCH 27 L RDW 15.3 H Seg Neuts % (Manual) 95.0 H Lymphocytes % (Manual) 3.0 L Monocytes % (Manual) Seg Neutrophils # Man 11.6 H Lymphocytes # (Manual) 0.4 L Monocytes # (Manual) INR Activated Clotting Time D-Dimer Heparin Anti-Xa Level POC ABG pH POC ABG pCO2 POC ABG pO2 Sodium Potassium Chloride Carbon Dioxide 34 H D BUN 25 H Glucose 138 H POC Glucose 145 H AST ALT Troponin T NT-Pro-B Natriuret Pep HDL Cholesterol 01/16/19 01/16/19 01/16/19 12:23 16:48 22:24 WBC MCH RDW Seg Neuts % (Manual) Lymphocytes % (Manual) Monocytes % (Manual) Seg Neutrophils # Man Lymphocytes # (Manual) Monocytes # (Manual) INR Activated Clotting Time D-Dimer Heparin Anti-Xa Level POC ABG pH POC ABG pCO2 POC ABG pO2 Sodium Potassium Chloride Carbon Dioxide BUN Glucose POC Glucose 162 H 137 H 147 H AST ALT Troponin T NT-Pro-B Natriuret Pep HDL Cholesterol 01/17/19 01/17/19 01/17/19 00:52 08:38 09:25 WBC MCH RDW Seg Neuts % (Manual) Lymphocytes % (Manual) Monocytes % (Manual) Seg Neutrophils # Man Lymphocytes # (Manual) Monocytes # (Manual) INR Activated Clotting Time D-Dimer Heparin Anti-Xa Level 0.10 L POC ABG pH POC ABG pCO2 POC ABG pO2 Sodium Potassium Chloride Carbon Dioxide BUN Glucose POC Glucose 141 H 163 H AST ALT Troponin T NT-Pro-B Natriuret Pep HDL Cholesterol 01/17/19 01/17/19 01/17/19 09:52 11:58 18:09 WBC MCH RDW Seg Neuts % (Manual) Lymphocytes % (Manual) Monocytes % (Manual) Seg Neutrophils # Man Lymphocytes # (Manual) Monocytes # (Manual) INR Activated Clotting Time D-Dimer Heparin Anti-Xa Level POC ABG pH POC ABG pCO2 POC ABG pO2 Sodium Potassium Chloride 93.0 L Carbon Dioxide 39 H BUN 32 H Glucose 181 H POC Glucose 262 H 136 H AST ALT Troponin T NT-Pro-B Natriuret Pep HDL Cholesterol 01/17/19 01/18/19 01/18/19 21:10 08:48 11:49 WBC MCH RDW Seg Neuts % (Manual) Lymphocytes % (Manual) Monocytes % (Manual) Seg Neutrophils # Man Lymphocytes # (Manual) Monocytes # (Manual) INR Activated Clotting Time D-Dimer Heparin Anti-Xa Level POC ABG pH POC ABG pCO2 POC ABG pO2 Sodium Potassium Chloride Carbon Dioxide BUN Glucose POC Glucose 181 H 163 H 204 H AST ALT Troponin T NT-Pro-B Natriuret Pep HDL Cholesterol 01/18/19 01/18/19 01/19/19 17:23 22:54 07:29 WBC MCH RDW Seg Neuts % (Manual) Lymphocytes % (Manual) Monocytes % (Manual) Seg Neutrophils # Man Lymphocytes # (Manual) Monocytes # (Manual) INR Activated Clotting Time D-Dimer Heparin Anti-Xa Level POC ABG pH POC ABG pCO2 POC ABG pO2 Sodium Potassium Chloride Carbon Dioxide BUN Glucose POC Glucose 127 H 151 H 142 H AST ALT Troponin T NT-Pro-B Natriuret Pep HDL Cholesterol 01/19/19 12:35 WBC MCH RDW Seg Neuts % (Manual) Lymphocytes % (Manual) Monocytes % (Manual) Seg Neutrophils # Man Lymphocytes # (Manual) Monocytes # (Manual) INR Activated Clotting Time D-Dimer Heparin Anti-Xa Level POC ABG pH POC ABG pCO2 POC ABG pO2 Sodium Potassium Chloride Carbon Dioxide BUN Glucose POC Glucose 168 H AST ALT Troponin T NT-Pro-B Natriuret Pep HDL Cholesterol
--- NOTE | 2019-01-19 17:01 | Discharge Summary ---
Providers - Providers Date of Admission: 01/15/19 00:52 Date of discharge: 01/19/19 Attending physician: BEBE MANUEL 01/15/19 01:23 Consult to Physician [CONS] Routine Comment: Consulting Provider: JORDEN PUENTE Physician Instructions: Reason For Exam: STEMI 01/15/19 02:59 Consult to Cardiac Rehabilitation [CONS] Routine Reason For Exam: Cardiac Rehab Evaluation 01/15/19 07:15 Consult to Physician [CONS] Routine Comment: Consulting Provider: VALENTINE GOINS Physician Instructions: Reason For Exam: critical care management 01/19/19 14:14 Consult to Case Management [CONS] Urgent Services Needed at Discharge: Home O2 Notified:: nurse case management Additional Physician Instructions: home 08-02 at 3lpm stationary concentrator and portable via nasal cannula continuous. Primary care physician: SHER MORTON Hospitalization Condition: Stable Disposition: DC/[place]-06 HOME UNDER [facility] Time spent for discharge: 32 min Core Measure Documentation - Palliative Care Palliative Care/ Comfort Measures: Not Applicable - Core Measures Any of the following diagnoses?: none Exam - Constitutional Vitals: Temp Pulse Resp BP Pulse Ox 98.3 F 81 20 148/78 96 01/19/19 07:34 01/19/19 13:40 01/19/19 13:40 01/19/19 07:34 01/19/19 10:00 General appearance: Present: no acute distress, well-nourished - EENT Eyes: Present: PERRL, EOM intact - Neck Neck: Present: supple, normal ROM - Respiratory Respiratory effort: normal Respiratory: bilateral: diminished, wheezing, negative: rales, rhonchi - Cardiovascular Rhythm: regular Heart Sounds: Present: S1 & S2 - Extremities Extremities: no ischemia, No edema - Abdominal General gastrointestinal: Present: soft, non-tender, non-distended, normal bowel sounds - Integumentary Integumentary: Present: clear, warm - Musculoskeletal Musculoskeletal: strength equal bilaterally, generalized weakness - Psychiatric Psychiatric: appropriate mood/affect, cooperative - Neurologic Neurologic: CNII-XII intact, moves all extremities Plan Activity: advance as tolerated, fall precautions Diet: diabetic Additional Instructions: home Oxygen 2-3 liters via NC as needed Follow up with: SHER MORTON MD [Primary Care Provider] - 3-5 Days GILBERTO LEY MD [Staff Physician] - 7 Days Prescriptions: Docusate Sodium [Colace CAP] 100 mg PO BID PRN #20 capsule PRN Reason: Constipation Carvedilol [Coreg] 3.125 mg PO BID #60 tablet ISOSORBIDE MONOnitrate [Imdur ER] 30 mg PO QDAY #30 tablet AtorvaSTATin [Lipitor] 40 mg PO QHS #30 tablet guaiFENesin ER [Mucinex ER] 600 mg PO BID #20 tablet Clopidogrel [Plavix] 75 mg PO QDAY #30 tablet ALBUTEROL Inhaler (OR & NICU) [ProAir HFA Inhaler] 2 puff IH QID PRN #1 inhalation PRN Reason: Shortness Of Breath
[2019-01-19] MEDS: GLUCOPHAGE XR PO SCH (18:18)
== END 2019-01-19 18:20 | disposition home health service (06) | DRG 280 ==
LOC: ED 20:54 → 4A 01-15 00:52 → CC1 01-15 00:53 → 4A 01-15 15:35
PROVIDERS: ADMIT Internal Medicine; ATTEND Internal Medicine
PROC: 4A023N7 Measurement of Cardiac Sampling and Pressure, Left Heart, Percutaneous Approach (ICD-10-PCS; principal; 2019-01-15)
PROC: B2111ZZ Fluoroscopy of Multiple Coronary Arteries using Low Osmolar Contrast (ICD-10-PCS; 2019-01-15)
PROC: B2151ZZ Fluoroscopy of Left Heart using Low Osmolar Contrast (ICD-10-PCS; 2019-01-15)
PROC: 3E0234Z Introduction of Serum, Toxoid and Vaccine into Muscle, Percutaneous Approach (ICD-10-PCS; 2019-01-15)
PROC: 4A033R1 Measurement of Arterial Saturation, Peripheral, Percutaneous Approach (ICD-10-PCS; 2019-01-15)
PROC: 5A09357 Assistance with Respiratory Ventilation, Less than 24 Consecutive Hours, Continuous Positive Airway Pressure (ICD-10-PCS; 2019-01-15)
DX: I21.09 ST elevation (STEMI) myocardial infarction involving other coronary artery of anterior wall (principal); J96.01 Acute respiratory failure with hypoxia; J44.1 Chronic obstructive pulmonary disease with (acute) exacerbation; E11.9 Type 2 diabetes mellitus without complications; F41.9 Anxiety disorder, unspecified; D72.829 Elevated white blood cell count, unspecified; E87.5 Hyperkalemia; E86.0 Dehydration; I50.9 Heart failure, unspecified; F03.90 Unspecified dementia, unspecified severity, without behavioral disturbance, psychotic disturbance, mood disturbance, and anxiety; Z90.710 Acquired absence of both cervix and uterus; Z79.899 Other long term (current) drug therapy; Z85.43 Personal history of malignant neoplasm of ovary; Z23 Encounter for immunization
CPT/HCPCS: 36415; 36600; 71045; 80048; 80053; 80061; 80076; 81001; 82803; 82962; 83036; 83880; 84132; 84484; 85007; 85014; 85018; 85025; 85049; 85347; 85379; 85520; 85610; 85730; 87040; 87116; 90732; 93005; 93010; 93306; 93458; 94640; 94644; 94760; G0378; A9270-GY; C1760; C1894; J1644; J1815; J1940; J1956; J2250; J2920; J2930; J3010; J7030; J7040; Q9967

== ENCOUNTER 2019-03-30 09:07 | Outpatient (CLI) | payer MEDICARE ==
[2019-03-30 10:27] LABS: Blood Urea Nitrogen 11 mg/dL (7-17)
--- NOTE | 2019-03-30 13:13 | Cat Scan Report ---
CT chest, abdomen, and pelvis with contrast INDICATION : C56.9) MALIGNANT NEOPLASM OF UNSPECIED OVARY. Reported lower GI hemorrhage TECHNIQUE: 100 mL of intravenous contrast administered.. All CT scans at this location are performe d using CT dose reduction for ALARA by means of automated exposure control. COMPARISON: CT chest, abdomen, and pelvis from 12/13/2018 FINDINGS: Chest: There is moderate atherosclerotic disease within the coronary arteries and the thoracic aorta . No pathologic mediastinal adenopathy identified and the heart size is normal. There is a moderately-sized right-sided pleural effusion with mild underlying compressive atelectasis . Moderate emphysematous changes are present in the lungs with no pulmonary nodule or mass identified . There is mild pleural thickening versus potential early plaque formation in the periphery of the ri ght middle and lower lobes. Degenerative changes are present in the spine with no acute osseous abnor mality identified. There is no pathologic axillary adenopathy. Abdomen/pelvis: There is colonic diverticulosis with a segment of wall thickening in the proximal si gmoid colon. There is no free air or abscess formation to suggest perforation and there is also no juan wel obstruction. There is a relative lack of surrounding inflammation. The liver is enlarged with no discrete mass identified. The gallbladder, spleen, pancreas, adrenals, right kidney, and proximal GI tract appear unremarkable. There is a tiny simple cyst in the upper mei e the left kidney. Left kidney otherwise appears unremarkable. There is no pathologic peritoneal or r etroperitoneal adenopathy. Urinary bladder is unremarkable. Uterus is surgically absent. No pelvic free fluid identified. No pat hologic inguinal adenopathy or pathologic adenopathy in either iliac chain. IMPRESSION: 1. Abnormal appearance of the proximal sigmoid colon could be seen with diverticulitis given underlyi ng diverticulosis. No evidence of a perforation or bowel obstruction. Given the lack of significant u nderlying inflammatory change, consider follow-up colonoscopy once clinically feasible to exclude any underlying neoplastic process. 2. Moderately-sized pleural effusion on the right in this patient with underlying emphysema. No pulmo nary mass or pathologic adenopathy. Probable early plaque formation versus atelectasis along the michelle phery of the right middle and lower lobes. Signer Name: Guilherme Lamas MD Signed: 03/30/2019 1:09 PM Workstation Name: [email or web address]
== END 2019-03-30 09:08 | disposition home or self-care (01) ==
LOC: CT 09:07
PROVIDERS: ATTEND Internal Medicine Hematology & Oncology
DX: C56.9 Malignant neoplasm of unspecified ovary (principal); K62.5 Hemorrhage of anus and rectum
CPT/HCPCS: 36415; 71260; 74177; 82565; 84520; Q9967

== ENCOUNTER 2019-05-12 06:39 | Day surgery (SDC) | payer MEDICARE ==
[2019-05-12 07:35] LABS: Hematocrit 31.6 % (30.3-42.9); Hemoglobin 9.9 gm/dl (10.1-14.3); Mean Corpuscular HGB Conc 31 % (30-34); Mean Corpuscular Volume 85 fl (79-97); Platelet Count 236 K/mm3 (140-440); Red Blood Count 3.74 M/mm3 (3.65-5.03); Red Cell Distribution Width 15.7 % (13.2-15.2)
[2019-05-12 07:40] LABS: INR 0.96 (0.87-1.13)
--- NOTE | 2019-05-12 09:21 | Short Stay Summary ---
Short Stay Documentation Date of service: 05/12/19 - History Principal diagnosis: right pleural effusion Past Medical History: cancer - Allergies and Medications Current Medications: Allergies No Known Allergies Allergy (Verified 04/27/16 11:47) Home Medications Medication Instructions Recorded Confirmed Last Taken Type Budesonide/Formoterol Fumarate 2 puff INHALATION BID 04/27/16 05/12/19 05/11/19 History [Symbicort 160-4.5 Mcg Inhaler] Carvedilol [Coreg] 3.125 mg PO BID #60 tablet 01/19/19 05/12/19 05/11/19 Rx Clopidogrel [Plavix] 75 mg PO QDAY #30 tablet 01/19/19 05/12/19 05/11/19 Rx Docusate Sodium [Colace CAP] 100 mg PO BID PRN #20 capsule 01/19/19 05/11/19 Rx Furosemide [Lasix] 20 mg PO QDAY #30 tablet 01/19/19 05/12/19 05/11/19 Rx ISOSORBIDE MONOnitrate [Imdur ER] 30 mg PO QDAY #30 tablet 01/19/19 05/12/19 05/11/19 Rx Aspirin [Adult Aspirin] 81 mg PO DAILY 05/12/19 05/12/19 05/11/19 History Guaifenesin/Pseudoephedrne HCl 1 tab PO BID 05/12/19 05/12/19 05/11/19 History [Mucinex D ER 1,200-120 mg Tab] - Physical exam General appearance: no acute distress Lungs: Other (decreased air movement on right) - Brief post op/procedure progress note Date of procedure: 05/12/19 Pre-op diagnosis: right pleural effusion Post-op diagnosis: same Procedure: US thoracentesis, right Anesthesia: local Findings: moderate to large right pleural fluid Surgeon: LISA GRANADOS Estimated blood loss: none Pathology: list (120cc) Specimen disposition: to lab Condition: stable - Hospital course Hospital course: uneventful - Disposition Condition at discharge: Good Disposition: DC-01 TO HOME OR SELFCARE Short Stay Discharge Plan Follow up with: PAULINE FREEMAN JR, MD [Primary Care Provider] - 7 Days
--- NOTE | 2019-05-12 09:27 | Ultrasound Report ---
ULTRASOUND-GUIDED THORACENTESIS HISTORY: rt pleural effusion. Ovarian cancer COMPARISON: None PROCEDURE: The risks (including but not limited to bleeding, infection, and pneumothorax) and benefi ts were explained to the patient and informed consent was obtained. A time out procedure was perform ed. Ultrasound was used to evaluate the pleural effusion and locate the optimal site for needle entry. O nce the skin was marked, the procedure site was prepped and draped in the usual sterile fashion and l idocaine was used for local anesthesia. A 5 Uzbek one-step centesis catheter was placed. The patien t was monitored closely throughout the procedure, and a total of 1000 mL of relatively clear yellow f luid was aspirated. Samples were sent to the lab for further evaluation per the primary clinicians o rders. The patient tolerated the procedure well with no complications. A post-procedure chest x-ray was imm ediately ordered. IMPRESSION: Successful ultrasound-guided right thoracentesis as described. Signer Name: Isidro Friedman Jr, MD Signed: 05/12/2019 9:23 AM Workstation Name: [id number]
[2019-05-12 09:32] VITALS: BP 121/95
--- NOTE | 2019-05-12 10:49 | XRay Report ---
CHEST 1 VIEW INDICATION: post thoracentesis. COMPARISON: Ultrasound images from today's thoracentesis and a 01/14/2019 AP chest. FINDINGS: Support devices: None. Heart: Within normal limits. Pulmonary vasculature: Normal. Lungs/Pleura: The lungs are normally expanded. No pneumothorax. A small residual right pleural effusi on. No airspace disease. Additional findings: None. IMPRESSION: 1. No pneumothorax after thoracentesis. 2. A small residual right pleural effusion. Signer Name: Ronnie Tanner MD Signed: 05/12/2019 10:44 AM Workstation Name: [id number]
[2019-05-15 10:04] LABS: Total Protein,Body Fluid 4.4 (15.0-45.0)
== END 2019-05-12 11:33 | disposition home or self-care (01) ==
LOC: CATHLABREC 06:39 → EDSTATUS 07:30 → CATHLABREC 11:33
PROVIDERS: ATTEND Specialist
DX: J90 Pleural effusion, not elsewhere classified (principal); C38.4 Malignant neoplasm of pleura; J44.9 Chronic obstructive pulmonary disease, unspecified; E11.9 Type 2 diabetes mellitus without complications; I50.9 Heart failure, unspecified; I25.2 Old myocardial infarction; Z85.43 Personal history of malignant neoplasm of ovary; Z79.899 Other long term (current) drug therapy; Z79.82 Long term (current) use of aspirin; Z87.891 Personal history of nicotine dependence; Z85.110 Personal history of malignant carcinoid tumor of bronchus and lung; Z90.710 Acquired absence of both cervix and uterus; Z98.890 Other specified postprocedural states
CPT/HCPCS: 32555; 36415; 71045; 83605; 84160; 85027; 85610; 85730; 87116; 88112; 88305